=== PATIENT | male | born 1955 | race Caucasian/White ===

== ENCOUNTER 2016-11-09 13:07 | Observation (INO) ==
[2016-11-09] MEDS ORDERED: Aspirin 81 MG TAB.CHEW PO ONE (14:02)
[2016-11-09 14:17] LABS: Basophils % 0.5 %; Eosinophils # 0.3 K/mcL (0.0-0.6); Eosinophils % 5.3 %; Hematocrit 25.8 % (37.5-50.1); Hemoglobin 8.4 g/dL (12.9-16.9); Immature Granulocytes % 0.3 % (0-4); Lymphocytes # 1.1 K/mcL (0.6-4.6); Lymphocytes % 16.2 %; Mean Corpuscular HGB Conc 32.6 g/dL (31.6-35.5); Mean Corpuscular Hemoglobin 28.6 pg (28.0-33.3); Mean Corpuscular Volume 87.8 fL (83.0-100.0); Mean Platelet Volume 9.5 fL (9.4-12.4); Monocytes # 0.5 K/mcL (0.0-1.3); Monocytes % 7.9 %; Neutrophils # 4.5 K/mcL (1.6-8.9); Platelet Count 191 K/mcL (140-400); Red Blood Count 2.94 M/mcL (4.19-5.50); Segmented Neutrophils % 69.8 %
--- NOTE | 2016-11-09 14:17 | Emergency Department Note ---
Disposition Clinical Impression: Elevated troponin Abdominal pain Qualifiers: Abdominal location: generalized Qualified Code(s): R10.84 - Generalized abdominal pain Disposition: Admitted As Inpatient Condition: Good Forms: Work/School Release, ED Satisfaction Letter Time of Disposition: 15:24 Abdominal Pain HPI - General Chief Complaint: ED Abdominal Pain Stated Complaint: Chest Pain, ABD pain Time Seen by Provider: 11/09/16 13:32 Source: patient Nursing Notes Reviewed: Yes Vital Signs Reviewed: Yes - History of Present Illness HPI Narrative: Patient complaining of a diffuse abdominal pain for the past 2-3 days. States he is also had nausea and dry heaving. He is unable to get any vomit up. He also states that when he is ambulating into the hospital today he began having chest pain. He got short of breath with this. He denies diaphoresis. He does have a history of a CABG. Pain Scale: 4 - Related Data Home Medications Medication Instructions Recorded Confirmed Atorvastatin [Lipitor] 40 mg PO HS 03/16/15 09/30/16 Cholecalciferol (Vitamin D3) 50,000 unit PO SUWE 03/16/15 09/30/16 [Vitamin D3] Sertraline [Zoloft] 100 mg PO HS 03/16/15 09/30/16 TraMADol [Ultram] 50 mg PO BID PRN 12/26/15 09/30/16 Ondansetron HCl [Zofran] 4 mg PO TID PRN 02/14/16 09/30/16 Primidone [Mysoline] 75 mg PO DAILY 03/31/16 09/30/16 Insulin Glargine,Hum.rec.anlog 24 unit SQ HS 05/10/16 09/30/16 [Lantus Solostar] Magnesium Oxide [Mag-Ox] 400 mg PO BID 06/26/16 09/30/16 Melatonin 5 mg PO HS 06/26/16 09/30/16 Acetaminophen [Tylenol] 650 mg PO Q6HR PRN 09/05/16 09/30/16 CloNIDine HCl [Clonidine HCl] 0.2 mg PO BID 09/05/16 09/30/16 Fluticasone Propionate Nasal 1 spr NS DAILY PRN 09/05/16 09/30/16 [Flonase] Furosemide [Lasix] 40 mg PO DAILY 09/05/16 09/30/16 Metoprolol XL (24 HR) Succ [Toprol 12.5 mg PO DAILY 09/05/16 09/30/16 XL] Zolpidem [Ambien] 5 mg PO HS PRN 09/05/16 09/30/16 Previous Rx's Medication Instructions Recorded Dicyclomine [Bentyl] 10 mg PO TID #90 capsule 03/30/15 Aspirin 81 mg PO DAILY #30 tab.chew 02/20/16 Ascorbic Acid [Vitamin C] 500 mg PO DAILY #30 tablet 04/25/16 Ferrous Sulfate 325 mg PO DAILY #30 tablet 04/25/16 Hydralazine HCl 25 mg PO QID #0 06/28/16 Terazosin [Hytrin] 5 mg PO HS #60 capsule 06/28/16 Allergies Allergy/AdvReac Type Severity Reaction Status Date / Time metoclopramide [From Reglan] Allergy Intermediate See Verified 09/30/16 08:30 Comments All systems ED: reviewed and negative except as stated. Constitutional: Denies: fever, chills ENT ED: Denies: congestion Cardiovascular: Reports: chest pain (One episode on exertion while he was ambulating in the emergency department. Pressure in the center of his chest.). Denies: palpitations, dyspnea on exertion, syncope Respiratory: Reports: dyspnea (Associated with the chest pain while walking in the emergency department.). Denies: cough, wheezes Gastrointestinal: Reports: abdominal pain (Generalized past 2-3 days.), nausea ( For the past 2-3 days.). Denies: vomiting, diarrhea, hematemesis, melena, hematochezia Genitourinary: Denies: urgency, dysuria, frequency, hematuria Integumentary: Denies: rash, abrasion Neurological: Denies: headache, weakness Abdominal Pain PMH - Past Medical History Medical history: Reports: arthritis, CHF, coronary artery disease, DVT, diabetes , hyperlipidemia, hypertension, pulmonary embolus, renal disease, other Male Surgical History: Reports: other Psychiatric history: Reports: depression - Social History Smoking status: Never smoker Alcohol use: Reports: none Drug use: Reports: none Physical Exam - General Limitations: no limitations General appearance: alert, in no apparent distress - Head Head exam: atraumatic, normocephalic - Eye Eye exam: Present: normal appearance, PERRL, EOMI - ENT ENT exam: normal exam, normal oropharynx - Neck Neck exam: Present: normal inspection, full ROM, trachea midline. Absent: meningismus, lymphadenopathy - Chest Chest inspection: Present: normal inspection, symmetric chest wall rise - Respiratory Respiratory exam: Present: normal lung sounds bilaterally. Absent: respiratory distress - Cardiovascular Cardiovascular exam: Present: regular rate, normal rhythm, normal heart sounds - Abdominal Exam Abdominal exam: Present: soft, Non-Tender (Patient describes a generalized ache however has no pain on palpation.), Levi's sign, Rovsing's sign, tenderness at McBurney's Point. Absent: rigidity, organomegaly - Extremities Exam Extremities exam: Present: normal inspection, full ROM, normal capillary refill. Absent: tenderness, pedal edema - Back Exam Back exam: Present: normal inspection, full ROM. Absent: tenderness, CVA tenderness (R), CVA tenderness (L) - Neurological Exam Neurological exam: Present: alert, oriented X3 - Psychiatric Psychiatric exam: Present: normal affect, normal mood - Skin Skin exam: Present: warm, dry, intact, normal color. Absent: rash, cyanosis, diaphoresis Course Course Narrative: Now patient presenting to the emergency department with a 2-3 day history of diffuse abdominal pain and nausea. He states that he has had several episodes of dry heaving but has not been able to produce vomit. He denies any fevers. He does have a history of CABG and states that while he was ambulating into the hospital today he started having chest pain and shortness of breath. He denies any diaphoresis. He denies any shortness of breath or chest pain at this current time after resting in bed. He states he does have a cough that is chronic and has gone on for several years. He states there is no change in this. His lung sounds are clear and his heart sounds are normal. His abdomen is soft and nontender on palpation. He describes it as a generalized ache throughout his whole abdomen. He refuses nausea or pain medication at this time. We will give him an aspirin as he takes this at night and has not taken his daily dose today. We will get cardiac workup as well as a chest x-ray. - Reevaluation(s) Reevaluation #1: Patient's troponin is increased. In the setting of patient having chest pain and an elevated troponin I am concerned for a new cardiac event. He does have a history of a CABG. His heart score is in the high risk category. We will admit patient to the hospital. Patient asleep in bed on my entrance to the room. He is easily aroused. Patient is hypertensive. Patient's states that he generally takes his hydralazine as well as the Bentyl at 3:00. I will order this. I discussed admission with the family. They expressed understanding and agreement. Patient was also agreeable. Time: 15:00 - Consultations Consultation #1: Dr Marin accepted Pt in stable condition. Time: 15:37 Vital Signs Temperature 98.2 F 11/09/16 13:20 Pulse Rate 95 11/09/16 13:20 Respiratory Rate 16 11/09/16 13:20 Blood Pressure 176/82 11/09/16 13:20 O2 Sat by Pulse Oximetry 97 11/09/16 13:20 Temperature 98.2 F 11/09/16 13:20 Pulse Rate 59 11/09/16 15:07 Respiratory Rate 18 11/09/16 15:07 Blood Pressure 205/91 11/09/16 15:07 O2 Sat by Pulse Oximetry 97 11/09/16 15:07 Oxygen Delivery Oxygen Delivery Room Air Abdominal Pain - Medical Records Medical records reviewed: Yes I reviewed the patient's medical records. - Lab Data Lab results reviewed: Yes I reviewed the patient's lab results. Result diagrams: 11/09/16 13:40 11/09/16 13:40 Lab Results 11/09/16 11/09/16 11/09/16 Range/Units 13:40 13:40 13:40 WBC 6.5 (4.3-11.1) K/mcL RBC 2.94 L (4.19-5.50) M/mcL Hgb 8.4 L (12.9-16.9) g/dL Hct 25.8 L (37.5-50.1) % MCV 87.8 (83.0-100.0) fL MCH 28.6 (28.0-33.3) pg MCHC 32.6 (31.6-35.5) g/dL RDW 13.0 (11.5-14.5) % Plt Count 191 (140-400) K/mcL MPV 9.5 (9.4-12.4) fL Immature Gran % 0.3 (0-4) % Seg Neutrophils % 69.8 % Lymphocytes % 16.2 % Monocytes % 7.9 % Eosinophils % 5.3 % Basophils % 0.5 % Neutrophils # 4.5 (1.6-8.9) K/mcL Lymphocytes # 1.1 (0.6-4.6) K/mcL Monocytes # 0.5 (0.0-1.3) K/mcL Eosinophils # 0.3 (0.0-0.6) K/mcL Basophils # 0.0 (0.0-0.2) K/mcL PT 12.3 H (9.4-12.1) Seconds INR 1.1 APTT 30.2 (26.0-36.0) Seconds Sodium (136-145) mEq/L Potassium (3.5-4.5) mEq/L Chloride (98-109) mEq/L Carbon Dioxide (19-29) mEq/L BUN (8-26) mg/dL Creatinine (0.72-1.25) mg/dL Est GFR ( Amer) (> 60) Est GFR (Non-Af Amer) (> 60) BUN/Creatinine Ratio (6-26) Glucose (70-99) mg/dL Calculated Osmolality (280-300) Calcium (8.6-10.8) mg/dL Total Bilirubin 0.3 (0.2-1.2) mg/dL Direct Bilirubin 0.1 (0.0-0.5) mg/dL Indirect Bilirubin 0.2 (0.0-1.2) mg/dL AST 20 (5-34) Units/L ALT 15 (0-55) Units/L Alkaline Phosphatase 59 (38-126) Units/L Troponin I (0-0.03) ng/mL Serum Total Protein 6.6 (6.0-8.3) g/dL Albumin 3.2 L (3.5-5.0) g/dL Globulin 3.4 (2.4-3.5) g/dL Albumin/Globulin Ratio 0.9 L (1.1-2.2) Amylase 65 (25-125) Units/L Lipase 32 (8-78) Units/L 11/09/16 11/09/16 Range/Units 13:40 13:40 WBC (4.3-11.1) K/mcL RBC (4.19-5.50) M/mcL Hgb (12.9-16.9) g/dL Hct (37.5-50.1) % MCV (83.0-100.0) fL MCH (28.0-33.3) pg MCHC (31.6-35.5) g/dL RDW (11.5-14.5) % Plt Count (140-400) K/mcL MPV (9.4-12.4) fL Immature Gran % (0-4) % Seg Neutrophils % % Lymphocytes % % Monocytes % % Eosinophils % % Basophils % % Neutrophils # (1.6-8.9) K/mcL Lymphocytes # (0.6-4.6) K/mcL Monocytes # (0.0-1.3) K/mcL Eosinophils # (0.0-0.6) K/mcL Basophils # (0.0-0.2) K/mcL PT (9.4-12.1) Seconds INR APTT (26.0-36.0) Seconds Sodium 139 (136-145) mEq/L Potassium 4.6 H (3.5-4.5) mEq/L Chloride 109 (98-109) mEq/L Carbon Dioxide 20 (19-29) mEq/L BUN 85 H (8-26) mg/dL Creatinine 3.49 H (0.72-1.25) mg/dL Est GFR ( Amer) 22 L (> 60) Est GFR (Non-Af Amer) 18 L (> 60) BUN/Creatinine Ratio 24 (6-26) Glucose 212 H (70-99) mg/dL Calculated Osmolality 320 H (280-300) Calcium 8.8 (8.6-10.8) mg/dL Total Bilirubin (0.2-1.2) mg/dL Direct Bilirubin (0.0-0.5) mg/dL Indirect Bilirubin (0.0-1.2) mg/dL AST (5-34) Units/L ALT (0-55) Units/L Alkaline Phosphatase (38-126) Units/L Troponin I 0.08 H* (0-0.03) ng/mL Serum Total Protein (6.0-8.3) g/dL Albumin (3.5-5.0) g/dL Globulin (2.4-3.5) g/dL Albumin/Globulin Ratio (1.1-2.2) Amylase (25-125) Units/L Lipase (8-78) Units/L - Radiology Data Radiology results reviewed: Yes I reviewed the patient's radiology results. Chest X-Ray 11/09/16 14:03 IMPRESSION: Small left pleural effusion with adjacent atelectasis, decreased in size since 06/26/2016 D/ / Eusebia Pineda MD / Eusebia Pineda MD Interpreting Provider: Eusebia Pineda MD - EKG Data EKG attestation: Yes I reviewed and interpreted this EKG. EKG results narrative: Normal sinus rhythm at a rate of 65. AR interval is 165. QRS duration is 103. QT is 414. QTC is 426. No ST elevation or depression noted. No significant changes from previous EKG dated 06/26/2016. Heart Score - Score History: Slightly Suspicious EKG: Normal Age: 45-65 Risk Factors: Equal/Greater than 3 risk factor or history of atherosclerotic disease Troponin: 1-3x normal limit HEART Score Total: 4
[2016-11-09 14:21] LABS: INR 1.1; Prothrombin Time 12.3 Seconds (9.4-12.1)
[2016-11-09 14:24] LABS: Activated Partial Thrombo Time 30.2 Seconds (26.0-36.0)
--- NOTE | 2016-11-09 14:24 | Emergency Department Note ---
START Narrative - START START: I examined this patient and my medical decision-making was reviewed with the LIBRARY ASSOCIATE/PA/Advanced Practice Nurse/Resident Physician. I agree with the documented findings, disposition and treatment plan as described except to the extent set forth below. ED attending note: Patient seen with emergency medicine resident Dr. Chester. Please see a copy of his note for details of the H&P, evaluation, management and disposition of this patient. We independently had [id number] contact with the patient Briefly: A 61-year-old male history of CAD chest discomfort on exertion abdomen surgically benign. Elbow stable vital signs. Heart score is 3. Patient at baseline troponin and then a 3 hour troponin after that chest x-ray and other screening labs. Disposition pending
[2016-11-09 14:25] LABS: Calcium 8.8 mg/dL (8.6-10.8); Potassium 4.6 mEq/L (3.5-4.5)
[2016-11-09 14:28] LABS: Albumin 3.2 g/dL (3.5-5.0); Albumin/Globulin Ratio 0.9 (1.1-2.2); Bilirubin,Direct 0.1 mg/dL (0.0-0.5); Bilirubin,Indirect 0.2 mg/dL (0.0-1.2); Bilirubin,Total 0.3 mg/dL (0.2-1.2); Globulin 3.4 g/dL (2.4-3.5); Total Protein 6.6 g/dL (6.0-8.3)
[2016-11-09] MEDS: hydrALAZINE 25 MG TABLET PO STA (15:39)
[2016-11-09] MEDS ORDERED: *HR* Metoprolol 5 MG/5 ML VIAL IVP ONE (17:32)
[2016-11-09] MEDS ORDERED: Naloxone 0.4 MG/ML INJ IVP PRN (18:05)
[2016-11-09] MEDS ORDERED: traMADol 50 MG TABLET PO PRN (18:08)
[2016-11-09] MEDS ORDERED: Acetaminophen 325 MG TABLET PO PRN (18:08)
[2016-11-09] MEDS ORDERED: *HR* Dextrose 50 % in Water (Syg) 50 ML SYRINGE IVP PRN (18:14)
[2016-11-09] MEDS ORDERED: Dextrose Gel 15 GM PO PRN ×2 (18:14)
[2016-11-09] MEDS ORDERED: D5% in Water 1,000 ML IVC PRN (18:14)
--- NOTE | 2016-11-09 18:24 | Internal Med History&Physical ---
Date of Encounter: 11/09/16 Time of Encounter: 18:19 Assessment and Plan (1) Abdominal pain Current visit: Yes Status: Acute Patient reports generalized abdominal pain, poor appetite, nausea, and dry heaving. He states he is able to tolerate fluids, and he is having regular bowel movements. Abdomen is soft, mildly tender. Patient reports history of IBS on Bentyl Continue home dose of Bentyl PRN zofran for nausea clear liquid diet. Qualifiers: Abdominal location: generalized Qualified Code(s): R10.84 - Generalized abdominal pain (2) Anemia Current visit: No Status: Acute Patient's hgb 8.4 down from previous of 10.0. He has anemia of chronic kidney disease and kidney function has been worsening. He takes an iron supplement daily. He denies any episodes of bleeding, black or bloody stools. Will check fecal occult blood Transfuse 1 unit of blood followed by 40mg of Lasix IVP. Qualifiers: Anemia type: other cause Other causes of anemia: chronic disease, kidney Qualified Code(s): N18.9 - Chronic kidney disease, unspecified; D63.1 - Anemia in chronic kidney disease (3) Accelerated hypertension Current visit: No Status: Acute Patient's blood pressure has been elevated since arrival. Home dose of hydralazine given in the ED. Continue home doses of clonidine, lasix, hydralazine. Start Nifedipine XL 60mg daily Hydralazine 10mg IVP Q6hr PRN for SBP > 180 or DBP > 110. (4) Elevated troponin Current visit: Yes Status: Acute Patient's troponin 0.08. He reported some mild chest pain earlier in the day that did not last long. He is chest pain free now. EKG shows normal sinus rhythm with no ST elevations or depressions. Patient had CABG in March for coronary artery disease. Patient with CKD 4, which may account for troponin elevation. As patient is not having any chest pain or shortness of breath, will follow troponins. Trend troponins continuous director of cardiac rehabilitation. (5) CAD (coronary artery disease) Current visit: No Status: Chronic 2-vessel CABG in March 2016. His post operative course was complicated by readmissions for pleural effusions, diastolic CHF exacerbation and worsening kidney function. Continue aspirin 81mg daily. Qualifiers: Coronary Disease-Associated Artery/Lesion type: [place] artery [place] vs. transplanted heart: [place] heart Associated angina: without angina Qualified Code(s): I25.10 - Atherosclerotic heart disease of [place] coronary artery without angina pectoris (6) CKD (chronic kidney disease) stage 4, GFR 15-29 ml/min Current visit: No Status: Chronic BUN/Cr of 85/3.49 consistent with recent baseline. Patient follows with Dr. Velasquez of Nephrology and recently had a RUE AVF placed in expectation of eventual dialysis. Potassium is 4.6 today. Avoid NSAIDS and nephrotoxins Chemistry in the morning. (7) DM type 2 (diabetes mellitus, type 2) Current visit: No Status: Chronic Fairly controlled as evidenced by Hgb A1c of 7.3% on 09/23/16. Diabetic clear liquid diet Patient usually takes 24u of lantus HS for basal dosing. As patient has a poor appetite and has a diet of clear liquids, will only give 14u of Levemir HS. Check blood sugars ACHS moderate dose sliding scale correction hypoglycemic protocol. 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 Consult to wound care. Qualifiers: Non-pressure ulcer stage: unspecified non-pressure ulcer stage Qualified Code(s): L97.419 - Non-pressure chronic ulcer of right heel and midfoot with unspecified severity (9) DVT prophylaxis Current visit: No Status: Acute anti-embolic stockings Heparin 5000u SQ TID Internal Medicine - H&P: HPI Chief complaint: abdominal pain, chest pain Admitted From: Emergency Dept Plans for Post Hospital Care: Home History of present illness: Mr. French is a 61 year old male with hypertension, hyperlipidemia, type 2 diabetes, chronic kidney disease stage IV, history of DVT and PE, coronary artery disease status post CABG in March 2016, congestive heart failure, and essential tremor, presented to the emergency department today with complaints of abdominal pain, nausea, and chest pain. Patient reports he has not slept in 2-3 days, he has had abdominal pain he describes as constant, severe pain accompanied by nausea, and dry heaving. He reports a poor appetite over the last several days, but is able to keep down fluids. He has had regular bowel movements with last one today. He reports headaches, but denies any lightheadedness he reports some mild chest pain earlier today that is now resolved. Denies any shortness of breath , palpitations. As a chronic cough nonproductive. He reports numbness and tingling in his hands and feet which is chronic as well. Patient reports he removed a tick from the side of his leg earlier today. Evaluation in the emergency department included a chest x-ray which showed small left pleural effusion decreased in size from previous exam, EKG showed normal sinus rhythm with no ST elevations or depressions. Troponin was elevated to 0.08, however this is in the setting of chronic kidney disease, and patient's troponin has been chronically elevated recently. Hemoglobin was 8.4 down from his previous of 10.0 white blood cell count was normal at 6.5. BUN and creatinine were consistent with his baseline chronic kidney disease. Patient was hypertensive with blood pressure in the 170-200/80-90s. On exam, patient is alert and oriented in no acute distress. Heart has regular rate and rhythm, lungs are clear bilaterally to auscultation. Bilateral lower extremities have +1 edema. Past Med Surg Social Fam HX - Past Medical History Medical history: arthritis, CHF, coronary artery disease, DVT, diabetes, hyperlipidemia, hypertension, pulmonary embolus, renal disease, other Psychiatric history: depression - Past Surgical History Surgical History: cataract, coronary bypass (CABG), vascular surgery (AVF placement), other - Social History Smoking Status: Never smoker Smokeless Tobacco Status: No Alcohol use: none Drug use: none - Family History Father Family Member Ethnicity: Non- Living Status: Still Living Hx Family Cardiac Disorders: Yes Hx Family Endocrine Disorder: Yes Mother Adopted: No Family Member Ethnicity: Non- Living Status: Still Living Hx Family Cardiac Disorders: Yes (dad, mother) Hx Family Respiratory Disorders: No Hx Family Cancer: Yes (aunt,uncle) Hx Family GI Disorders: Yes Hx Family Endocrine Disorder: No Hx Family Neuromuscular Disorders: No Hx Family Neurologic Disorders: No Hx Family HEENT Disorders: No Hx Family Autoimmune Disorders: No Internal Medicine - H&P: Meds Atorvastatin [Lipitor] 40 mg PO HS 03/16/15 [History] Cholecalciferol (Vitamin D3) [Vitamin D3] 50,000 unit PO SUWE 03/16/15 [History] Sertraline [Zoloft] 100 mg PO HS 03/16/15 [History] Dicyclomine [Bentyl] 10 mg PO TID #90 capsule 03/30/15 [Rx] TraMADol [Ultram] 50 mg PO BID PRN 12/26/15 [History] Primidone [Mysoline] 75 mg PO DAILY 03/31/16 [History] Ascorbic Acid [Vitamin C] 500 mg PO DAILY #30 tablet 04/25/16 [Rx] Insulin Glargine,Hum.rec.anlog [Lantus Solostar] 24 unit SQ HS 05/10/16 [History ] Magnesium Oxide [Mag-Ox] 400 mg PO BID 06/26/16 [History] Melatonin 5 mg PO HS 06/26/16 [History] Hydralazine HCl 25 mg PO QID #0 06/28/16 [Rx] Terazosin [Hytrin] 5 mg PO HS #60 capsule 06/28/16 [Rx] Acetaminophen [Tylenol] 650 mg PO Q6HR PRN 09/05/16 [History] CloNIDine HCl [Clonidine HCl] 0.2 mg PO DAILY 09/05/16 [History] Fluticasone Propionate Nasal [Flonase] 1 spr NS DAILY PRN 09/05/16 [History] Furosemide [Lasix] 40 mg PO DAILY 09/05/16 [History] Zolpidem [Ambien] 5 mg PO HS PRN 09/05/16 [History] Aspirin 81 mg PO HS 11/09/16 [History] Ferrous Sulfate 650 mg PO DAILY 11/09/16 [History] Promethazine HCl 12.5 mg PO TID PRN 11/09/16 [History] Allergies metoclopramide [From Reglan] Allergy (Intermediate, Verified 09/30/16 08:30) See Comments TREMORS All Systems PM: A 10-system review of systems was performed and is negative for pertinent findings except as documented above in the HPI. - Constitutional Constitutional: chills, malaise, no fever(s), no night sweats - EENT Eyes: no change in vision, no discharge, no pain, no photophobia Ears: no ear discharge, no ear pain, no tinnitus Nose, mouth and throat: no dysphagia, no nasal discharge, no neck pain, no sore throat - Cardiovascular Cardiovascular ROS IM: chest pain, no diaphoresis, no dyspnea, no lightheadedness, no palpitations, no syncope - Respiratory Respiratory: cough (chronic), no dyspnea, no wheezing, no excessive phlegm production - Gastrointestinal Gastrointestinal: abdominal pain, nausea, vomiting, no diarrhea, no hematemesis , no hematochezia, no melena - Musculoskeletal Musculoskeletal ROS IM: numbness (bilateral hands and feet, chronic), tingling - Integumentary Integumentary IM: no rash, no unusual bruising - Neurological Neurological ROS: tremor(s) (chronic), no confusion, no convulsions, no focal weakness, no numbness, no tingling - Hematologic/Lymphatic Hematologic/Lymphatic: no easy bruising - Constitutional Vitals: Temp Pulse Resp BP Pulse Ox 97.7 F 97 16 197/82 99 11/09/16 16:12 11/09/16 16:12 11/09/16 16:12 11/09/16 16:33 11/09/16 16:12 General appearance: Present: A&O X 3, pleasant, no acute distress - Head Head exam: Present: atraumatic, normocephalic - Eye Eye exam: Present: PERRL, conjuntiva pink, sclera anicteric Pupils: Present: PERRL - Neck Neck exam general surgery: Present: supple, trachea midline. Absent: lymphadenopathy - Respiratory Respiratory exam: Present: CTAB. Absent: accessory muscle use, rales, rhonchi, wheezes - Cardiovascular Cardiovascular exam: Present: RRR, +S1, +S2. Absent: diastolic murmur, gallop, rubs, systolic murmur - GI/Abdominal GI/Abdominal exam: Present: normal bowel sounds, soft, no peritoneal signs. Absent: distended, tenderness - Extremities Exam Extremities exam: Present: pedal edema (BLE +1), warm, radial pulses palpable and symetrical. Absent: calf tenderness, cyanotic - Neurological Exam Neurological exam: Present: CN II-XII intact, oriented X3, no focal deficits. Absent: facial droop, speech deficit - Skin Skin exam: Present: dry Additional comments: right heel ulcer Internal Med - H&P Results - Labs CBC & Chem 7: 11/09/16 13:40 11/09/16 13:40
--- NOTE | 2016-11-09 19:55 | Event Note ---
Date of Encounter: 11/09/16 Time of Encounter: 19:52 patient seen and examined with nurse practitioner. Agree with assessment and plan. 1 unit of blood becuse of chest pain in CABG patient and Hb 8.4. Check stool for occult blood. Add nifedipine 60 mg daily for better control of BP. May consider discontinuing clonidine because of uncontrolled HTN this admission as well as prior.
[2016-11-09] MEDS: *HR* Heparin 5,000 UNIT/ML VIAL SQ SCH (20:42)
[2016-11-09] MEDS: Magnesium Oxide 400 MG TABLET PO SCH (20:42)
[2016-11-09] MEDS: hydrALAZINE 25 MG TABLET PO SCH (20:42)
[2016-11-09] MEDS: Insulin DETEMIR 100 UNIT/ML X5UNITS SQ SCH (20:42)
[2016-11-09] MEDS: Aspirin 81 MG TAB.CHEW PO SCH (20:42)
[2016-11-09] MEDS: NIFEdipine XL (24 HR) 60 MG TAB.ER.24 PO SCH (20:42)
[2016-11-09] MEDS: Insulin LISPRO 300 UNITS/3 ML VIAL SQ SCH (20:49)
[2016-11-09] MEDS ORDERED: Furosemide 40 MG/4 ML VIAL IVP ONE (23:00)
[2016-11-10] MEDS: traMADol 50 MG TABLET PO PRN (01:13)
[2016-11-10 02:50] LABS: Basophils % 0.6 %; Eosinophils # 0.6 K/mcL (0.0-0.6); Eosinophils % 8.7 %; Hematocrit 27.1 % (37.5-50.1); Hemoglobin 8.9 g/dL (12.9-16.9); Immature Granulocytes % 0.3 % (0-4); Lymphocytes # 1.8 K/mcL (0.6-4.6); Lymphocytes % 27.1 %; Mean Corpuscular HGB Conc 32.8 g/dL (31.6-35.5); Mean Corpuscular Hemoglobin 28.5 pg (28.0-33.3); Mean Corpuscular Volume 86.9 fL (83.0-100.0); Mean Platelet Volume 9.5 fL (9.4-12.4); Monocytes # 0.6 K/mcL (0.0-1.3); Monocytes % 9.2 %; Neutrophils # 3.6 K/mcL (1.6-8.9); Platelet Count 183 K/mcL (140-400); Red Blood Count 3.12 M/mcL (4.19-5.50); Red Cell Distribution Width 13.2 % (11.5-14.5); Segmented Neutrophils % 54.1 %
[2016-11-10 03:01] LABS: Calcium 8.8 mg/dL (8.6-10.8); Potassium 3.8 mEq/L (3.5-4.5)
[2016-11-10] MEDS: *HR* Heparin 5,000 UNIT/ML VIAL SQ SCH ×3 (05:28→21:50)
[2016-11-10] MEDS: Insulin LISPRO 300 UNITS/3 ML VIAL SQ SCH ×4 (07:53→21:49)
[2016-11-10] MEDS: Furosemide 40 MG TABLET PO SCH (09:24)
[2016-11-10] MEDS: cloNIDine HCl 0.1 MG TABLET PO SCH (09:24)
[2016-11-10] MEDS: Magnesium Oxide 400 MG TABLET PO SCH ×2 (09:24→21:48)
[2016-11-10] MEDS: Primidone 50 MG TABLET PO SCH (09:25)
[2016-11-10] MEDS: Ascorbic Acid 500 MG TABLET PO SCH (09:25)
[2016-11-10] MEDS: hydrALAZINE 25 MG TABLET PO SCH ×4 (09:25→21:48)
[2016-11-10] MEDS: NIFEdipine XL (24 HR) 60 MG TAB.ER.24 PO SCH (09:25)
--- NOTE | 2016-11-10 13:38 | Internal Med Progress Note ---
Date of Encounter: 11/10/16 Time of Encounter: 13:36 - Assessment and plan (1) Elevated troponin Current Visit: Yes Status: Acute Assessment and plan: Patient had only one episode of chest pain in the emergency room, which may be noncardiac. Troponins noted to be around 0.08, currently trending down to 0.06. Review of previous medical records and labs show that patient has had a chronic troponin leak, likely due to underlying CKD and uncontrolled hypertension. He is also noted to have any anemia which could contribute to demand ischemia. Continue aspirin, statin. Patient is not noted to be on beta diogo due to unknown reasons. (2) Anemia Current Visit: Yes Status: Chronic Assessment and plan: Patient is noted to have a 2-3 g drop in hemoglobin over the last 4 months and he is noted to have positive fecal occult blood test. He received 1 unit PRBC transfusion due to complaints of fatigue and generalized weakness with slight troponin leak but hemoglobin improved to less than 1 g. We will consult GI for possible colonoscopy, continue to monitor hemoglobin. Qualifiers: Anemia type: iron deficiency Iron deficiency anemia type: unspecified iron deficiency Qualified Code(s): D50.9 - Iron deficiency anemia, unspecified (3) Chest pain Current Visit: Yes Status: Ruled-out Assessment and plan: Likely musculoskeletal. Qualifiers: Chest pain type: other chest pain Qualified Code(s): R07.89 - Other chest pain; R07.8 - Other chest pain (4) Hypertension Current Visit: Yes Status: Chronic Assessment and plan: Patient is noted to have uncontrolled hypertension as outpatient. 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 Blood pressure is currently noted to be improving, continue home medications. Low-sodium diet. Qualifiers: Hypertension type: essential hypertension Qualified Code(s): I10 - Essential (primary) hypertension (5) Hypercholesteremia Current Visit: Yes Status: Chronic (6) History of depression Current Visit: Yes Status: Chronic (7) CKD (chronic kidney disease) stage 4, GFR 15-29 ml/min Current Visit: Yes Status: Chronic Assessment and plan: Serum creatinine noted to be at baseline. Continue to monitor closely and avoid nephrotoxic agents. Patient follows with nephrology as an outpatient. (8) Coronary artery disease Current Visit: Yes Status: Chronic Qualifiers: Coronary Disease-Associated Artery/Lesion type: bypass graft [place] vs. transplanted heart: [place] heart Associated angina: without angina Qualified Code(s): I25.810 - Atherosclerosis of coronary artery bypass graft(s) without angina pectoris (9) DM type 2 (diabetes mellitus, type 2) Current Visit: Yes Status: Chronic Assessment and plan: Accu-Chek blood glucose monitoring with sliding scale insulin. Diabetic diet. 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 termite technician insulin use: with snf use Chronic kidney disease stage: stage 4 (severe) Qualified Code(s): E11.22 - Type 2 diabetes mellitus with diabetic chronic kidney disease; N18.4 - Chronic kidney disease, stage 4 (severe); Z79.4 - snf (current) use of insulin - Subjective Interval history: Feels better; improved nausea, abdominal and chest pain; no dizziness, weakness; - Constitutional Vitals: Temp Pulse Resp BP Pulse Ox 97.5 F L 54 16 138/66 91 11/10/16 11:37 11/10/16 11:37 11/10/16 11:37 11/10/16 11:37 11/10/16 11:37 General appearance: Present: A&O X 3, answers questions appropriately - Respiratory Respiratory exam: Present: CTAB. Absent: accessory muscle use, rales, rhonchi, wheezes - Cardiovascular Cardiovascular exam: Present: RRR, +S1, +S2. Absent: diastolic murmur, gallop, rubs, systolic murmur - GI/Abdominal GI/Abdominal exam: Present: normal bowel sounds, soft, no peritoneal signs. Absent: distended, tenderness - Extremities Exam Extremities exam: Present: full ROM, warm, radial pulses palpable and symetrical. Absent: calf tenderness, cyanotic, pedal edema - Neurological Exam Neurological exam: Present: CN II-XII intact, oriented X3, no focal deficits. Absent: pronater drift, facial droop, speech deficit Internal Medicine: Result - Labs CBC & Chem 7: 11/10/16 02:25 11/10/16 02:25 Labs: Short CBC 11/10/16 Range/Units 02:25 WBC 6.6 (4.3-11.1) K/mcL Hgb 8.9 L (12.9-16.9) g/dL Hct 27.1 L (37.5-50.1) % Plt Count 183 (140-400) K/mcL Neutrophils # 3.6 (1.6-8.9) K/mcL BMP 11/10/16 02:25 Sodium 140 Potassium 3.8 Chloride 109 Carbon Dioxide 22 BUN 84 H Creatinine 3.42 H Glucose 109 H Calcium 8.8 Cardiac Enzymes 11/09/16 11/10/16 11/10/16 Range/Units 19:52 02:25 12:29 Troponin I 0.09 H* 0.08 H* 0.06 H* (0-0.03) ng/mL - ABG Interpretation ABG results: PT/INR, D-dimer PT 12.3 Seconds (9.4-12.1) H 11/09/16 13:40 Consult Discharge Plan - Plan Referrals: Ruel Veloz MD [Primary Care Provider] -
--- NOTE | 2016-11-10 19:25 | Electrocardiograph Report ---
[place] [id number] Test Date: 2016-11-09 Pat Name: Elmo French Department: 104 Room: 3B Gender: M Claim Manager: MSC : [id number] Requested By: Lizy Loyd Order Number: [id number] Reading MD: Pablo Alarcon MD Measurements Intervals [place] Rate: 65 P: 47 NC: 165 QRS: 37 QRSD: 103 T: 91 QT: 414 QTc: 426 Interpretive Statements SINUS RHYTHM Electronically Signed On 11-10-2016 19:24:02 EDT by Pablo Alarcon MD
[2016-11-10] MEDS: Aspirin 81 MG TAB.CHEW PO SCH (21:48)
[2016-11-10] MEDS: Insulin DETEMIR 100 UNIT/ML X5UNITS SQ SCH (21:49)
[2016-11-11 05:35] LABS: Basophils % 0.6 %; Eosinophils # 0.5 K/mcL (0.0-0.6); Eosinophils % 8.4 %; Hematocrit 26.9 % (37.5-50.1); Hemoglobin 8.7 g/dL (12.9-16.9); Immature Granulocytes % 0.3 % (0-4); Lymphocytes # 1.5 K/mcL (0.6-4.6); Mean Corpuscular HGB Conc 32.3 g/dL (31.6-35.5); Mean Corpuscular Hemoglobin 28.1 pg (28.0-33.3); Mean Corpuscular Volume 86.8 fL (83.0-100.0); Mean Platelet Volume 9.1 fL (9.4-12.4); Monocytes # 0.6 K/mcL (0.0-1.3); Neutrophils # 3.6 K/mcL (1.6-8.9); Platelet Count 194 K/mcL (140-400); Red Cell Distribution Width 13.4 % (11.5-14.5); Segmented Neutrophils % 57.7 %
[2016-11-11] MEDS: *HR* Heparin 5,000 UNIT/ML VIAL SQ SCH ×3 (05:39→21:43)
[2016-11-11 05:55] LABS: Albumin 2.9 g/dL (3.5-5.0); Calcium 8.6 mg/dL (8.6-10.8); Phosphorous 4.6 mg/dL (2.3-4.7); Potassium 4.4 mEq/L (3.5-4.5)
[2016-11-11] MEDS: Insulin LISPRO 300 UNITS/3 ML VIAL SQ SCH ×4 (08:53→21:21)
[2016-11-11] MEDS: Ondansetron 4 MG/2 ML VIAL IVP PRN (09:34)
[2016-11-11] MEDS: Magnesium Oxide 400 MG TABLET PO SCH ×2 (09:37→21:44)
[2016-11-11] MEDS: NIFEdipine XL (24 HR) 60 MG TAB.ER.24 PO SCH (09:37)
[2016-11-11] MEDS: Primidone 50 MG TABLET PO SCH (09:37)
[2016-11-11] MEDS: Furosemide 40 MG TABLET PO SCH (09:37)
[2016-11-11] MEDS: traMADol 50 MG TABLET PO PRN (09:38)
[2016-11-11] MEDS: Ascorbic Acid 500 MG TABLET PO SCH (09:38)
[2016-11-11] MEDS: cloNIDine HCl 0.1 MG TABLET PO SCH (09:38)
[2016-11-11] MEDS: hydrALAZINE 25 MG TABLET PO SCH ×4 (09:38→21:46)
--- NOTE | 2016-11-11 12:36 | Gastroenterology Consult Note ---
<VeeAntonio edwards Mona - Last Filed: 11/11/16 12:34> Date of Encounter: 11/11/16 Time of Encounter: 11:00 - Assessment and plan (1) Anemia Current Visit: Yes Status: Chronic Assessment and plan: Hgb 8.7, continue to monitor CBC and transfuse PRBC as needed. Plan for EGD and colonoscopy tomorrow. Clear liquid diet today, no red or purple. NPO at midnight. If unable tolerate NuLytely please use MiraLAX prep. If not clear by 6 AM, give 2 tap water enemas. Qualifiers: Anemia type: iron deficiency Iron deficiency anemia type: unspecified iron deficiency Qualified Code(s): D50.9 - Iron deficiency anemia, unspecified (2) CKD (chronic kidney disease) stage 4, GFR 15-29 ml/min Current Visit: No Status: Chronic (3) Elevated troponin Current Visit: Yes Status: Acute Assessment and plan: Chronic. Management per primary team. - Time Spent With Patient Total time spent is greater than 50% in coordination of care (as documented) at patient's floor/unit and/or counseling patient: GI History of Present Illness - Data of Consult Patient: new to practice Consult date: 11/11/16 Requesting Physician: Joseph Sylvester MD - Consult Narrative Reason for consult: Anemia, FOBT + History of present illness: Mr. French is a 61 year old male with PMHx of CHF, CAD s/p CABG March 2016, DVT, DM, HLD, HTN, PE, CKD stage IV who presented to the ED with abdominal pain , nausea, and chest pain. He describes the abdominal pain as constant and severe with associated nausea. He is having daily BM, and denies melena or hematochezia. He denies fever, chills, SOB, palpitations, hematemesis, or diarrhea. Hgb on admission was 8.4 and has received 1 unit PRBC. Hgb today is 8.7. He reports his tremors are due to Reglan usage. Procedures: None NSAIDs: ASA Anticoagulation: None Past Med Surg Social Fam HX - Past Medical History Medical history: arthritis, CHF, coronary artery disease, DVT, diabetes, hyperlipidemia, hypertension, pulmonary embolus, renal disease, other Psychiatric history: depression - Past Surgical History Surgical History: cataract, coronary bypass (CABG), vascular surgery (AVF placement), other - Social History Smoking Status: Never smoker Smokeless Tobacco Status: No Alcohol use: none Drug use: none - Family History Father Family Member Ethnicity: Non- Living Status: Still Living Hx Family Cardiac Disorders: Yes Hx Family Endocrine Disorder: Yes Mother Adopted: No Family Member Ethnicity: Non- Living Status: Still Living Hx Family Cardiac Disorders: Yes (dad, mother) Hx Family Respiratory Disorders: No Hx Family Cancer: Yes (aunt,uncle) Hx Family GI Disorders: Yes Hx Family Endocrine Disorder: No Hx Family Neuromuscular Disorders: No Hx Family Neurologic Disorders: No Hx Family HEENT Disorders: No Hx Family Autoimmune Disorders: No - Gastrointestinal Gastrointestinal: Present: as per HPI - Constitutional Constitutional: as per HPI - EENT Eyes: as per HPI Ears: Present: as per HPI Nose, mouth and throat: Present: as per HPI - Cardiovascular Cardiovascular ROS: Present: as per HPI - Respiratory Respiratory IM: Present: as per HPI - Genitourinary Genitourinary: Absent: change in color, Urinary frequency - Neurological ROS Neurological GI: Present: as per HPI - Hematologic/Lymphatic Hematologic/Lymphatic pediatric: Present: as per HPI - Musculoskeletal Musculoskeletal ROS GI: Present: as per HPI - Integumentary Integumentary GI: Present: as per HPI - Psychiatric ROS Psychiatric GI: Present: as per HPI - Endocrine Endocrine IM: Present: as per HPI - Constitutional Vitals: Temp Pulse Resp BP Pulse Ox 97.7 F 60 17 173/73 96 11/11/16 11:31 11/11/16 11:31 11/11/16 11:31 11/11/16 11:31 11/11/16 11:31 General appearance: Present: cooperative, A&O X 3, no acute distress, answers questions appropriately - Head Head exam: Present: atraumatic, normocephalic - Eye Eye exam: Present: normal appearance, sclera anicteric - ENT ENT exam: Present: mucous membranes moist - Neck Neck exam general surgery: Present: normal inspection, trachea midline - Respiratory Respiratory exam: Present: CTAB. Absent: rales - Cardiovascular Cardiovascular exam: Present: RRR, +S1, +S2 - GI/Abdominal GI/Abdominal exam: Present: soft, no peritoneal signs. Absent: distended, firm , guarding, tenderness - Rectal Rectal exam: Present: deferred - Extremities Exam Extremities exam: Present: warm - Neurological Exam Neurological exam: Present: no focal deficits Additional comments: Tremors - Psychiatric Psychiatric exam: Present: normal affect, normal mood - Skin Skin exam: Present: dry, intact, normal color, warm Results - Labs CBC & Chem 7: 11/11/16 05:12 11/11/16 05:12 Labs: Last Result Calcium 8.6 mg/dL (8.6-10.8) 11/11/16 05:12 Troponin I 0.05 ng/mL (0-0.03) H* 11/10/16 18:11 Stool Occult Blood Positive (Negative) A 11/09/16 21:14 Entire Visit Hgb 8.7 g/dL (12.9-16.9) L 11/11/16 05:12 Hct 26.9 % (37.5-50.1) L 11/11/16 05:12 PT 12.3 Seconds (9.4-12.1) H 11/09/16 13:40 Total Bilirubin 0.3 mg/dL (0.2-1.2) 11/09/16 13:40 AST 20 Units/L (5-34) 11/09/16 13:40 ALT 15 Units/L (0-55) 11/09/16 13:40 Amylase 65 Units/L (25-125) 11/09/16 13:40 Lipase 32 Units/L (8-78) 11/09/16 13:40 - ABG ABG results: PT/INR, D-dimer PT 12.3 Seconds (9.4-12.1) H 11/09/16 13:40 - Impressions Impressions Abdomen/Pelvis CT 11/11/16 11:35 IMPRESSION: 1. No acute findings within the abdomen or pelvis. In particular, no evidence of acute sacral or coccygeal injury. No pelvic hematoma. 2. Moderate left pleural effusion with some gravity dependent left lower lobe atelectasis. 3. Cholelithiasis with no acute features. D/ / Stevie Bui MD / Stevie Bui MD Interpreting Provider: Stevie Bui MD Consult Discharge Plan - Plan Referrals: Ruel Veloz MD [Primary Care Provider] - 11/18/16 2:00 pm <Yasmeen Ruiz - Last Filed: 11/11/16 16:59> Date of Encounter: 11/11/16 Time of Encounter: 13:00 - Time Spent With Patient Total time spent is greater than 50% in coordination of care (as documented) at patient's floor/unit and/or counseling patient: GI History of Present Illness - Data of Consult Requesting Physician: Joseph Sylvester MD - Consult Narrative History of present illness: Mr. French is a 61 year old male - Constitutional Vitals: Temp Pulse Resp BP Pulse Ox 97.6 F 63 16 159/76 96 11/11/16 15:00 11/11/16 15:00 11/11/16 15:00 11/11/16 15:00 11/11/16 15:00 Results - Labs CBC & Chem 7: 11/11/16 05:12 11/11/16 05:12 Labs: Last Result Calcium 8.6 mg/dL (8.6-10.8) 11/11/16 05:12 Troponin I 0.05 ng/mL (0-0.03) H* 11/10/16 18:11 Stool Occult Blood Positive (Negative) A 11/09/16 21:14 Entire Visit Hgb 8.7 g/dL (12.9-16.9) L 11/11/16 05:12 Hct 26.9 % (37.5-50.1) L 11/11/16 05:12 PT 12.3 Seconds (9.4-12.1) H 11/09/16 13:40 Total Bilirubin 0.3 mg/dL (0.2-1.2) 11/09/16 13:40 AST 20 Units/L (5-34) 11/09/16 13:40 ALT 15 Units/L (0-55) 11/09/16 13:40 Amylase 65 Units/L (25-125) 11/09/16 13:40 Lipase 32 Units/L (8-78) 11/09/16 13:40 - ABG ABG results: PT/INR, D-dimer PT 12.3 Seconds (9.4-12.1) H 11/09/16 13:40 - Impressions Impressions Abdomen/Pelvis CT 11/11/16 11:35 IMPRESSION: 1. No acute findings within the abdomen or pelvis. In particular, no evidence of acute sacral or coccygeal injury. No pelvic hematoma. 2. Moderate left pleural effusion with some gravity-dependent left lower lobe atelectasis. 3. Cholelithiasis with no acute features. D/ / 11/11/2016 12:33:46 Stevie Bui MD / [facility] Interpreting Provider: Stevie Bui MD - Attending Attestation I examined this patient and my medical decision-making was reviewed with the ASSOCIATE DOCTOR/PA/Advanced Practice Nurse/Resident Physician. I agree with the documented findings, disposition and treatment plan as described except to the extent set forth below.
[2016-11-11] MEDS ORDERED: SODIUM CHLORIDE/NAHCO3/KCL/PEG 4,000 ML SOLN.RECON PO ONE (17:00)
--- NOTE | 2016-11-11 20:11 | Internal Med Progress Note ---
Date of Encounter: 11/11/16 Time of Encounter: 10:00 - Assessment and plan (1) Anemia Current Visit: Yes Status: Chronic Assessment and plan: Patient is noted to have a 2-3 g drop in hemoglobin over the last 4 months and he is noted to have positive fecal occult blood test. He received 1 unit PRBC transfusion due to complaints of fatigue and generalized weakness with slight troponin leak but hemoglobin improved to less than 1 g. GI consultation saw Patient, plan for scopes tomorrow morning. Qualifiers: Anemia type: iron deficiency Iron deficiency anemia type: unspecified iron deficiency Qualified Code(s): D50.9 - Iron deficiency anemia, unspecified (2) CKD (chronic kidney disease) stage 4, GFR 15-29 ml/min Current Visit: Yes Status: Chronic Assessment and plan: Serum creatinine noted to be at baseline. Continue to monitor closely and avoid nephrotoxic agents. Patient follows with nephrology as an outpatient. (3) Coronary artery disease Current Visit: Yes Status: Chronic Assessment and plan: S/P CABG. Continue aspirin and atorvastatin Qualifiers: Coronary Disease-Associated Artery/Lesion type: bypass graft [place] vs. transplanted heart: [place] heart Associated angina: without angina Qualified Code(s): I25.810 - Atherosclerosis of coronary artery bypass graft(s) without angina pectoris (4) DM type 2 (diabetes mellitus, type 2) Current Visit: Yes Status: Chronic Assessment and plan: Accu-Chek blood glucose monitoring with basal and sliding scale insulin. Diabetic diet. 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 Patient has a chronic elevated troponin, trend down now. Qualifiers: Chest pain type: other chest pain Qualified Code(s): R07.89 - Other chest pain; R07.8 - Other chest pain (6) Hypertension Current Visit: No Status: Acute Assessment and plan: Poorly controlled hypertension, nefidipine XL added. Qualifiers: Hypertension type: essential hypertension Qualified Code(s): I10 - Essential (primary) hypertension (7) Elevated troponin Current Visit: Yes Status: Acute Assessment and plan: Patient has a chronic elevated troponin. Troponin is trending down. - Time Spent With Patient 25 - 35 minutes - Subjective Interval history: Patient is a 61-year-old male admitted for chest pain and noted no pinna pain. he was also found low hemoglobin and positive guaiac test. Past medical history is significant for CHF, CAD, diabetes, CKD. Patient was seen and examined, still complaining of mild abdominal pain. Denies chest pain or shortness of breath. Vital signs stable. No significant increase in hemoglobin after 1 unit of transfusion. GI consult appreciated, plan for scopes tomorrow morning. - Constitutional Vitals: Temp Pulse Resp BP Pulse Ox 97.3 F L 62 16 165/79 97 11/11/16 19:10 11/11/16 19:10 11/11/16 19:10 11/11/16 19:10 11/11/16 19:10 General appearance: Present: A&O X 3, answers questions appropriately - Head Head exam: Present: atraumatic, normocephalic - Eye Eye exam: Present: PERRL, conjuntiva pink, sclera anicteric Pupils: Present: PERRL - Neck Neck exam general surgery: Present: supple, trachea midline. Absent: lymphadenopathy - Respiratory Respiratory exam: Present: CTAB. Absent: accessory muscle use, rales, rhonchi, wheezes - Cardiovascular Cardiovascular exam: Present: RRR, +S1, +S2. Absent: diastolic murmur, gallop, rubs, systolic murmur - GI/Abdominal GI/Abdominal exam: Present: normal bowel sounds, soft, tenderness (Mild tenderness on right and the left upper quadrant, without rebound or guarding), no peritoneal signs. Absent: distended - Extremities Exam Extremities exam: Present: warm, radial pulses palpable and symetrical. Absent : calf tenderness, cyanotic, pedal edema - Neurological Exam Neurological exam: Present: CN II-XII intact, oriented X3, no focal deficits. Absent: pronater drift, facial droop, speech deficit - Skin Skin exam: Present: dry, intact Internal Medicine: Result - Labs CBC & Chem 7: 11/11/16 05:12 11/11/16 05:12 Labs: Short CBC 11/11/16 Range/Units 05:12 WBC 6.2 (4.3-11.1) K/mcL Hgb 8.7 L (12.9-16.9) g/dL Hct 26.9 L (37.5-50.1) % Plt Count 194 (140-400) K/mcL Neutrophils # 3.6 (1.6-8.9) K/mcL BMP 11/11/16 05:12 Sodium 139 Potassium 4.4 Chloride 109 Carbon Dioxide 22 BUN 80 H Creatinine 3.57 H Glucose 75 Calcium 8.6 Liver Function 11/11/16 Range/Units 05:12 Albumin 2.9 L (3.5-5.0) g/dL - ABG Interpretation ABG results: PT/INR, D-dimer PT 12.3 Seconds (9.4-12.1) H 11/09/16 13:40 - Impressions Impressions Abdomen/Pelvis CT 11/11/16 11:35 IMPRESSION: 1. No acute findings within the abdomen or pelvis. In particular, no evidence of acute sacral or coccygeal injury. No pelvic hematoma. 2. Moderate left pleural effusion with some gravity-dependent left lower lobe atelectasis. 3. Cholelithiasis with no acute features. D/ / 11/11/2016 12:33:46 Stevie Bui MD / [facility] Interpreting Provider: Stevie Bui MD - VTE Documentation of Mechanical Device: Graduated compression elastic hosiery Consult Discharge Plan - Plan Referrals: Ruel Veloz MD [Primary Care Provider] - 11/18/16 2:00 pm
[2016-11-11] MEDS: Aspirin 81 MG TAB.CHEW PO SCH (21:44)
[2016-11-11] MEDS: Insulin DETEMIR 100 UNIT/ML X5UNITS SQ SCH (21:45)
[2016-11-12 04:36] LABS: Basophils % 0.3 %; Eosinophils # 0.5 K/mcL (0.0-0.6); Eosinophils % 8.2 %; Hematocrit 27.9 % (37.5-50.1); Hemoglobin 9.2 g/dL (12.9-16.9); Immature Granulocytes % 0.3 % (0-4); Lymphocytes # 1.4 K/mcL (0.6-4.6); Lymphocytes % 24.2 %; Mean Corpuscular Hemoglobin 28.7 pg (28.0-33.3); Mean Corpuscular Volume 86.9 fL (83.0-100.0); Mean Platelet Volume 9.4 fL (9.4-12.4); Monocytes # 0.5 K/mcL (0.0-1.3); Monocytes % 8.3 %; Neutrophils # 3.4 K/mcL (1.6-8.9); Platelet Count 206 K/mcL (140-400); Red Blood Count 3.21 M/mcL (4.19-5.50); Red Cell Distribution Width 13.2 % (11.5-14.5); Segmented Neutrophils % 58.7 %
[2016-11-12 04:49] LABS: Calcium 8.6 mg/dL (8.6-10.8); Potassium 4.2 mEq/L (3.5-4.5)
[2016-11-12] MEDS: *HR* Heparin 5,000 UNIT/ML VIAL SQ SCH ×3 (05:56→21:55)
[2016-11-12] MEDS: Magnesium Oxide 400 MG TABLET PO SCH ×2 (07:51→21:53)
[2016-11-12] MEDS: Primidone 50 MG TABLET PO SCH (07:51)
[2016-11-12] MEDS: Insulin LISPRO 300 UNITS/3 ML VIAL SQ SCH ×4 (07:51→21:59)
[2016-11-12] MEDS: Furosemide 40 MG TABLET PO SCH (07:51)
[2016-11-12] MEDS: cloNIDine HCl 0.1 MG TABLET PO SCH (07:51)
[2016-11-12] MEDS: NIFEdipine XL (24 HR) 30 MG TAB.ER.24 PO SCH (07:51)
[2016-11-12] MEDS: hydrALAZINE 25 MG TABLET PO SCH ×4 (07:51→21:53)
[2016-11-12] MEDS: Ascorbic Acid 500 MG TABLET PO SCH (07:52)
[2016-11-12] MEDS ORDERED: Lidocaine -MPF 2% 5 ML VIAL INFILT ONE (10:16)
[2016-11-12] MEDS ORDERED: *HR* Propofol 500 MG/50 ML BOTTLE IVC ONE (10:16)
--- NOTE | 2016-11-12 12:30 | Anesthesia Evaluation PreOp ---
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: Other (tremors right hand) Other Medical History: Renal (CKD stage 4), Diabetes Type II, Other (depression) Anesthesia History: No Prior Anesthetic Complications, Past Anesthesia Alcohol Use: none Drug use: none Medications and Allergies Atorvastatin [Lipitor] 40 mg PO HS 03/16/15 [History] Cholecalciferol (Vitamin D3) [Vitamin D3] 50,000 unit PO SUWE 03/16/15 [History] Sertraline [Zoloft] 100 mg PO HS 03/16/15 [History] Dicyclomine [Bentyl] 10 mg PO TID #90 capsule 03/30/15 [Rx] TraMADol [Ultram] 50 mg PO BID PRN 12/26/15 [History] Primidone [Mysoline] 75 mg PO DAILY 03/31/16 [History] Ascorbic Acid [Vitamin C] 500 mg PO DAILY #30 tablet 04/25/16 [Rx] Insulin Glargine,Hum.rec.anlog [Lantus Solostar] 24 unit SQ HS 05/10/16 [History ] Magnesium Oxide [Mag-Ox] 400 mg PO BID 06/26/16 [History] Melatonin 5 mg PO HS 06/26/16 [History] Hydralazine HCl 25 mg PO QID #0 06/28/16 [Rx] Terazosin [Hytrin] 5 mg PO HS #60 capsule 06/28/16 [Rx] Acetaminophen [Tylenol] 650 mg PO Q6HR PRN 09/05/16 [History] CloNIDine HCl [Clonidine HCl] 0.2 mg PO DAILY 09/05/16 [History] Fluticasone Propionate Nasal [Flonase] 1 spr NS DAILY PRN 09/05/16 [History] Furosemide [Lasix] 40 mg PO DAILY 09/05/16 [History] Zolpidem [Ambien] 5 mg PO HS PRN 09/05/16 [History] Aspirin 81 mg PO HS 11/09/16 [History] Ferrous Sulfate 650 mg PO DAILY 11/09/16 [History] Promethazine HCl 12.5 mg PO TID PRN 11/09/16 [History] Allergies metoclopramide [From Reglan] Allergy (Intermediate, Verified 09/30/16 08:30) See Comments TREMORS - Meds/Allergy Pre-op Review Medications Reviewed: Yes Allergies Reviewed: Yes Beta Blockers on Current Med List: No Anesthesia Results - Labs 11/12/16 03:46 11/12/16 03:46 - Imaging EKG: report reviewed (11/09/2016 SR) Anesthesia Exam Vital Signs/O2 Sat/Glucose, Most Recent Temp Pulse Resp BP Pulse Ox 98.2 F 75 17 214/80 96 11/12/16 11:40 11/12/16 11:40 11/12/16 11:40 11/12/16 11:40 11/12/16 11:40 Blood Glucose* 96 Height: 5'11''/1.8 m Weight: 214 lbs/97.341 NPO (# of Hours): 8 Pain Scale: 3 Pain Scale Used: Numeric (1 - 10) - HEENT Pupil (Motor): EOMI Mallampati: III Teeth: Normal (chipped front lower tooth) Oral Opening: Greater than 3 - LIME FILTER OPERATOR LOC: Oriented LIME FILTER OPERATOR Motor: Normal RLE, Normal LLE, Normal Face, Deficit RUE, Deficit LUE LIME FILTER OPERATOR Sensory: Normal: Face, Deficit: RUE, LUE, RLE, LLE - Cardiac Rhythm: Regular Murmur: None - Pulmonary Breath Sounds: bilateral Clear Respiratory Effort: Symmetrical Anesthesia Assess/Plan ASA Score: 4 Modified Malone Scale for Level of Consciousness: Cooperative, oriented, and tranquil Anesthetic Plan: MAC Monitoring Plan: Standard Monitors
--- NOTE | 2016-11-12 15:12 | Anesthesia Evaluation Post Op ---
Date of Encounter: 11/12/16 Time of Encounter: 15:10 - Vital Signs Vital Signs: 151/80, hr63, SpO2 97%, RR 16 - Lungs Lungs: Clear Ascult./Percussion - Airway Airway: Non-obstructed - Cardiovascular Regular Rate - Mental Status Mental Status: Alert & Oriented, Answers Appropriately - Pain Pain Scale: 0 Pain Scale used: Numeric (1 - 10) - Nausea Vomiting Nausea Vomiting: Not Present - Hydration Hydration: NPO, Has not voided - Discharge PostOp Status: Transfer Patient to floor
--- NOTE | 2016-11-12 19:03 | Internal Med Progress Note ---
Date of Encounter: 11/12/16 Time of Encounter: 10:00 - Assessment and plan (1) Anemia Current Visit: Yes Status: Chronic Assessment and plan: Patient is noted to have a 2-3 g drop in hemoglobin over the last 4 months and he is noted to have positive fecal occult blood test. He received 1 unit PRBC transfusion due to complaints of fatigue and generalized weakness with slight troponin leak but hemoglobin improved to less than 1 g. GI consultation saw Patient, did EGD and colonoscopy. Qualifiers: Anemia type: iron deficiency Iron deficiency anemia type: unspecified iron deficiency Qualified Code(s): D50.9 - Iron deficiency anemia, unspecified (2) CKD (chronic kidney disease) stage 4, GFR 15-29 ml/min Current Visit: Yes Status: Chronic Assessment and plan: Serum creatinine noted to be at baseline. Continue to monitor closely and avoid nephrotoxic agents. Patient follows with nephrology as an outpatient. (3) Coronary artery disease Current Visit: Yes Status: Chronic Assessment and plan: S/P CABG. Continue aspirin and atorvastatin Qualifiers: Coronary Disease-Associated Artery/Lesion type: bypass graft [place] vs. transplanted heart: [place] heart Associated angina: without angina Qualified Code(s): I25.810 - Atherosclerosis of coronary artery bypass graft(s) without angina pectoris (4) DM type 2 (diabetes mellitus, type 2) Current Visit: Yes Status: Chronic Assessment and plan: Accu-Chek blood glucose monitoring with basal and sliding scale insulin. Diabetic diet. 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 Patient has a chronic elevated troponin, trend down now. Qualifiers: Chest pain type: other chest pain Qualified Code(s): R07.89 - Other chest pain; R07.8 - Other chest pain (6) Hypertension Current Visit: No Status: Acute Assessment and plan: Poorly controlled hypertension, add labetalol 200mg bid. Qualifiers: Hypertension type: essential hypertension Qualified Code(s): I10 - Essential (primary) hypertension (7) Elevated troponin Current Visit: Yes Status: Acute Assessment and plan: Patient has a chronic elevated troponin. Troponin is trending down. - Time Spent With Patient 25 - 35 minutes - Subjective Interval history: Patient is a 61-year-old male admitted for chest pain and noted abd pain. he was also found low hemoglobin and positive guaiac test. Past medical history is significant for CHF, CAD, diabetes, CKD. Patient was seen and examined, abdominal pain improved. Denies chest pain or shortness of breath. Vital signs stable. No significant increase in hemoglobin after 1 unit of transfusion. GI did EGD and a colonoscopy today, no active bleeding identified. - Constitutional Vitals: Temp Pulse Resp BP Pulse Ox 98.3 F 68 16 218/86 97 11/12/16 18:43 11/12/16 18:43 11/12/16 18:43 11/12/16 18:43 11/12/16 18:43 General appearance: Present: A&O X 3, answers questions appropriately - Head Head exam: Present: atraumatic, normocephalic - Eye Eye exam: Present: PERRL, conjuntiva pink, sclera anicteric Pupils: Present: PERRL - Neck Neck exam general surgery: Present: supple, trachea midline. Absent: lymphadenopathy - Respiratory Respiratory exam: Present: CTAB. Absent: accessory muscle use, rales, rhonchi, wheezes - Cardiovascular Cardiovascular exam: Present: RRR, +S1, +S2. Absent: diastolic murmur, gallop, rubs, systolic murmur - GI/Abdominal GI/Abdominal exam: Present: normal bowel sounds, soft, no peritoneal signs. Absent: distended, tenderness - Extremities Exam Extremities exam: Present: warm, radial pulses palpable and symetrical. Absent : calf tenderness, cyanotic, pedal edema - Neurological Exam Neurological exam: Present: CN II-XII intact, oriented X3, no focal deficits. Absent: pronater drift, facial droop, speech deficit - Skin Skin exam: Present: dry, intact Internal Medicine: Result - Labs CBC & Chem 7: 11/12/16 03:46 11/12/16 03:46 Labs: Short CBC 11/12/16 Range/Units 03:46 WBC 5.8 (4.3-11.1) K/mcL Hgb 9.2 L (12.9-16.9) g/dL Hct 27.9 L (37.5-50.1) % Plt Count 206 (140-400) K/mcL Neutrophils # 3.4 (1.6-8.9) K/mcL BMP 11/12/16 03:46 Sodium 138 Potassium 4.2 Chloride 107 Carbon Dioxide 21 BUN 74 H Creatinine 3.52 H Glucose 82 Calcium 8.6 - ABG Interpretation ABG results: PT/INR, D-dimer PT 12.3 Seconds (9.4-12.1) H 11/09/16 13:40 - VTE Documentation of Mechanical Device: Graduated compression elastic hosiery Consult Discharge Plan - Plan Referrals: Ruel Veloz MD [Primary Care Provider] - 11/18/16 2:00 pm
[2016-11-12] MEDS: traMADol 50 MG TABLET PO PRN (20:22)
[2016-11-12] MEDS: Ondansetron 4 MG/2 ML VIAL IVP PRN (20:49)
[2016-11-12] MEDS: Aspirin 81 MG TAB.CHEW PO SCH (21:53)
[2016-11-12] MEDS: Insulin DETEMIR 100 UNIT/ML X5UNITS SQ SCH (22:00)
[2016-11-13] MEDS: *HR* Heparin 5,000 UNIT/ML VIAL SQ SCH (05:24)
[2016-11-13 07:12] LABS: Basophils % 0.7 %; Eosinophils # 0.2 K/mcL (0.0-0.6); Eosinophils % 4.1 %; Hematocrit 26.3 % (37.5-50.1); Hemoglobin 8.6 g/dL (12.9-16.9); Immature Granulocytes % 0.3 % (0-4); Lymphocytes # 1.3 K/mcL (0.6-4.6); Lymphocytes % 21.5 %; Mean Corpuscular HGB Conc 32.7 g/dL (31.6-35.5); Mean Corpuscular Volume 88.6 fL (83.0-100.0); Mean Platelet Volume 9.8 fL (9.4-12.4); Monocytes # 0.6 K/mcL (0.0-1.3); Neutrophils # 3.8 K/mcL (1.6-8.9); Platelet Count 197 K/mcL (140-400); Red Blood Count 2.97 M/mcL (4.19-5.50); Red Cell Distribution Width 13.3 % (11.5-14.5); Segmented Neutrophils % 63.4 %
[2016-11-13] MEDS: Insulin LISPRO 300 UNITS/3 ML VIAL SQ SCH ×2 (08:22→12:48)
[2016-11-13] MEDS ORDERED: cloNIDine HCl 0.1 MG TABLET PO SCH (09:00)
[2016-11-13] MEDS: hydrALAZINE 25 MG TABLET PO SCH ×2 (09:37→12:48)
[2016-11-13] MEDS: Furosemide 40 MG TABLET PO SCH (09:37)
[2016-11-13] MEDS: Ascorbic Acid 500 MG TABLET PO SCH (09:37)
[2016-11-13] MEDS: Magnesium Oxide 400 MG TABLET PO SCH (09:38)
[2016-11-13] MEDS: NIFEdipine XL (24 HR) 30 MG TAB.ER.24 PO SCH (09:38)
[2016-11-13] MEDS: Primidone 50 MG TABLET PO SCH (09:38)
[2016-11-13 11:49] LABS: Calcium 8.5 mg/dL (8.6-10.8); Potassium 4.5 mEq/L (3.5-4.5)
[2016-11-13 12:21] LABS: Folate 12.1 ng/mL (7.0-31.4)
--- NOTE | 2016-11-13 13:24 | Discharge Summary ---
Date of Encounter: 11/13/16 Time of Encounter: 10:00 - Discharge Diagnosis (1) Anemia Priority: Primary Status: Chronic Qualifiers: Anemia type: iron deficiency Iron deficiency anemia type: unspecified iron deficiency Qualified Code(s): D50.9 - Iron deficiency anemia, unspecified (2) CKD (chronic kidney disease) stage 4, GFR 15-29 ml/min Priority: Secondary Status: Chronic (3) Coronary artery disease Priority: Secondary Status: Chronic Qualifiers: Coronary Disease-Associated Artery/Lesion type: bypass graft [place] vs. 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 technician use Chronic kidney disease stage: stage 4 (severe) Qualified Code(s): E11.22 - Type 2 diabetes mellitus with diabetic chronic kidney disease; N18.4 - Chronic kidney disease, stage 4 (severe); 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 (5) Chest pain Priority: Primary Status: Ruled-out Qualifiers: Chest pain type: other chest pain Qualified Code(s): R07.89 - Other chest pain; R07.8 - Other chest pain (6) Hypertension Priority: Secondary Status: Acute Qualifiers: Hypertension type: essential hypertension Qualified Code(s): I10 - Essential (primary) hypertension (7) Elevated troponin Priority: Primary Status: Acute - Discharge Medications Prescriptions: CloNIDine HCl 0.2 mg PO BID #120 tablet NIFEdipine XL (24 HR) [Procardia XL] 90 mg PO DAILY #90 tab.er.24 Home Medications: Atorvastatin [Lipitor] 40 mg PO HS 03/16/15 [History] Cholecalciferol (Vitamin D3) [Vitamin D3] 50,000 unit PO SUWE 03/16/15 [History] Sertraline [Zoloft] 100 mg PO HS 03/16/15 [History] Dicyclomine [Bentyl] 10 mg PO TID #90 capsule 03/30/15 [Rx] TraMADol [Ultram] 50 mg PO BID PRN 12/26/15 [History] Primidone [Mysoline] 75 mg PO DAILY 03/31/16 [History] Ascorbic Acid [Vitamin C] 500 mg PO DAILY #30 tablet 04/25/16 [Rx] Insulin Glargine,Hum.rec.anlog [Lantus Solostar] 24 unit SQ HS 05/10/16 [History ] Magnesium Oxide [Mag-Ox] 400 mg PO BID 06/26/16 [History] Melatonin 5 mg PO HS 06/26/16 [History] Hydralazine HCl 25 mg PO QID #0 06/28/16 [Rx] Terazosin [Hytrin] 5 mg PO HS #60 capsule 06/28/16 [Rx] Acetaminophen [Tylenol] 650 mg PO Q6HR PRN 09/05/16 [History] Fluticasone Propionate Nasal [Flonase] 1 spr NS DAILY PRN 09/05/16 [History] Furosemide [Lasix] 40 mg PO DAILY 09/05/16 [History] Zolpidem [Ambien] 5 mg PO HS PRN 09/05/16 [History] Aspirin 81 mg PO HS 11/09/16 [History] Ferrous Sulfate 650 mg PO DAILY 11/09/16 [History] Promethazine HCl 12.5 mg PO TID PRN 11/09/16 [History] CloNIDine HCl 0.2 mg PO BID #120 tablet 11/13/16 [Rx] NIFEdipine XL (24 HR) [Procardia XL] 90 mg PO DAILY #90 tab.er.24 11/13/16 [Rx] Allergies/Adverse Reactions: Allergies metoclopramide [From Reglan] Allergy (Intermediate, Verified 09/30/16 08:30) See Comments TREMORS Procedures/tests Complete & Pending: Procedures Performed prior 72 hours Category Date Time Status CT abd pelvis wo no iv no oral [CT] Stat Cat Scan 11/11/16 11:35 Completed - Notes to Outpatient Provider Patient's blood pressure medication has been adjusted: Increase clonidine dose to 0.2 mg twice a day. Add Nifedipine XL 90mg po qd. please a follow-up BP Date of admission: 11/09/16 15:40 Primary care physician: Ruel Veloz MD Consults: 11/09/16 18:29 Consult to Medical Examiner [CONS] Routine Reason for SW Consult: HH and financial concerns. 11/09/16 18:45 Consult to Wound Care [CONS] Routine Reason for Consult: right heel ulcer, patient also complaining of sacaral pain. Call Completed: No 11/10/16 13:26 Consult to Gastroenterology [CONS] Routine Consulting Provider: Dieter Jeong Reason for Consult: Acute anemia, FOBT positive Call Completed: Yes Discharging clinician: Joseph Sylvester Anticipated date of discharge: 11/13/16 - Patient Status Disposition: Home, Self-Care Condition: Good Functional capacity at discharge: independent ambulation Overall status at discharge: patient is back to baseline - Discharge Instructions Follow Up With: Ruel Veloz MD [Primary Care Provider] - 11/18/16 2:00 pm Yasmeen Ruiz MD [Partnered Physician] - - Diet and Activity Activity: increase activity as tolerated Diet: other (Renal diet, diabetes diet ) Interval History: Mr. French is a 61 year old male with hypertension, hyperlipidemia, type 2 diabetes, chronic kidney disease stage IV, history of DVT and PE, coronary artery disease status post CABG in March 2016, congestive heart failure, and essential tremor, presented to the emergency department today with complaints of abdominal pain, nausea, and chest pain. Patient reports he has not slept in 2-3 days, he has had abdominal pain he describes as constant, severe pain accompanied by nausea, and dry heaving. He reports a poor appetite over the last several days, but is able to keep down fluids. He has had regular bowel movements with last one today. He reports headaches, but denies any lightheadedness he reports some mild chest pain earlier today that is now resolved. Denies any shortness of breath , palpitations. As a chronic cough nonproductive. He reports numbness and tingling in his hands and feet which is chronic as well. Patient reports he removed a tick from the side of his leg earlier today. Evaluation in the emergency department included a chest x-ray which showed small left pleural effusion decreased in size from previous exam, EKG showed normal sinus rhythm with no ST elevations or depressions. Troponin was elevated to 0.08, however this is in the setting of chronic kidney disease, and patient's troponin has been chronically elevated recently. Hemoglobin was 8.4 down from his previous of 10.0 white blood cell count was normal at 6.5. BUN and creatinine were consistent with his baseline chronic kidney disease. Patient was hypertensive with blood pressure in the 170-200/80-90s. On exam, patient is alert and oriented in no acute distress. Heart has regular rate and rhythm, lungs are clear bilaterally to auscultation. Bilateral lower extremities have +1 edema. Hospital course: Mr. French is a 61 year old male admitted for abdominal pain, chest pain, and a low hemoglobin. He was placed on close monitoring, 3 sets of troponin tracked, shows levels trended down (0.08, 0.06, 0.05). Patient has a chronic elevation of troponin. He also has history of CKD following nephrology as outpatient. Patient's chest pain is atypical and resolved during hospitalization. His abdominal examination is benign, abdominal pain resolved during hospitalization. Patient has anemia, GI consult was called, EGD and colonoscopy has been done, no active bleeding. Patient has uncontrolled hypertension, BP medication has been adjusted. Examined Patient today, he is awake alert, oriented 3. Denies chest pain, shortness of breath, abdominal pain, or nausea vomiting. Vitals are stable. Patient is stable to discharge home, he will follow-up with PCP and nephrology as outpatient. - Time Spent with Patient Total time spent providing and/or coordinating discharge services: 40 minutes Greater than 30 minutes - Constitutional Vitals: Temp Pulse Resp BP Pulse Ox 97.5 F L 54 16 124/58 95 11/13/16 11:07 11/13/16 11:07 11/13/16 11:07 11/13/16 11:07 11/13/16 11:07 General appearance: Present: A&O X 3, answers questions appropriately - Head Head exam: Present: atraumatic, normocephalic - Eye Eye exam: Present: PERRL, conjuntiva pink, sclera anicteric Pupils: Present: PERRL - Neck Neck exam general surgery: Present: supple, trachea midline. Absent: lymphadenopathy - Respiratory Respiratory exam: Present: CTAB. Absent: accessory muscle use, rales, rhonchi, wheezes - Cardiovascular Cardiovascular exam: Present: RRR, +S1, +S2. Absent: diastolic murmur, gallop, rubs, systolic murmur - GI/Abdominal GI/Abdominal exam: Present: normal bowel sounds, soft, no peritoneal signs. Absent: distended, tenderness - Extremities Exam Extremities exam: Present: warm, radial pulses palpable and symetrical. Absent : calf tenderness, cyanotic, pedal edema - Neurological Exam Neurological exam: Present: CN II-XII intact, oriented X3, no focal deficits. Absent: pronater drift, facial droop, speech deficit - Skin Skin exam: Present: dry, intact - VTE Documentation of Mechanical Device: Graduated compression elastic hosiery
[2016-11-13 15:20] VITALS: BP 136/61
--- NOTE | 2016-11-13 15:21 | Physician Discharge Referral ---
Home Health/Hosp Referral Info Transfer to: Home Health Provider in Charge Post Discharge: PCP - Diagnosis (1) Anemia Status: Chronic (2) CKD (chronic kidney disease) stage 4, GFR 15-29 ml/min Status: Chronic (3) Coronary artery disease Status: Chronic (4) DM type 2 (diabetes mellitus, type 2) Status: Chronic (5) Chest pain Status: Ruled-out (6) Hypertension Status: Acute (7) Elevated troponin Status: Acute - Respiratory Orders Smoking Cessation: Smoking cessation has been advised. For more information, call the [place] Tobacco Quit Line at 7-532-FISQ-NOW. - Diet/Nutrition Diet/Nutrition Orders: Renal, No Concentrated Sweets - Services Needed Following services are medically necessary services: Nursing, Home Health Aide, Physical Therapy, Occupational Therapy - Transfer Medications Prescriptions: CloNIDine HCl 0.2 mg PO BID #120 tablet NIFEdipine XL (24 HR) [Procardia XL] 90 mg PO DAILY #90 tab.er.24 Home Medications: Atorvastatin [Lipitor] 40 mg PO HS 03/16/15 [History] Cholecalciferol (Vitamin D3) [Vitamin D3] 50,000 unit PO SUWE 03/16/15 [History] Sertraline [Zoloft] 100 mg PO HS 03/16/15 [History] Dicyclomine [Bentyl] 10 mg PO TID #90 capsule 03/30/15 [Rx] TraMADol [Ultram] 50 mg PO BID PRN 12/26/15 [History] Primidone [Mysoline] 75 mg PO DAILY 03/31/16 [History] Ascorbic Acid [Vitamin C] 500 mg PO DAILY #30 tablet 04/25/16 [Rx] Insulin Glargine,Hum.rec.anlog [Lantus Solostar] 24 unit SQ HS 05/10/16 [History ] Magnesium Oxide [Mag-Ox] 400 mg PO BID 06/26/16 [History] Melatonin 5 mg PO HS 06/26/16 [History] Hydralazine HCl 25 mg PO QID #0 06/28/16 [Rx] Terazosin [Hytrin] 5 mg PO HS #60 capsule 06/28/16 [Rx] Acetaminophen [Tylenol] 650 mg PO Q6HR PRN 09/05/16 [History] Fluticasone Propionate Nasal [Flonase] 1 spr NS DAILY PRN 09/05/16 [History] Furosemide [Lasix] 40 mg PO DAILY 09/05/16 [History] Zolpidem [Ambien] 5 mg PO HS PRN 09/05/16 [History] Aspirin 81 mg PO HS 11/09/16 [History] Ferrous Sulfate 650 mg PO DAILY 11/09/16 [History] Promethazine HCl 12.5 mg PO TID PRN 11/09/16 [History] CloNIDine HCl 0.2 mg PO BID #120 tablet 11/13/16 [Rx] NIFEdipine XL (24 HR) [Procardia XL] 90 mg PO DAILY #90 tab.er.24 11/13/16 [Rx] Allergies/Adverse Reactions: Allergies metoclopramide [From Reglan] Allergy (Intermediate, Verified 09/30/16 08:30) See Comments TREMORS Certification: Further, I certify that my clinical findings support that this patient is homebound (i.e. absences from home require considerable and taxing effort and are for medical reasons or evangelical services or infrequently or short duration when for other reasons) because: Homebound Reason: Patient requires assistance of a person or device to safely leave home Attestation: My signature below is to certify that this patient is under my care and that I, or nurse practitioner, or a physician's urgent care physician assistant working with me, has a face-to -face encounter with this patient.
== END 2016-11-13 15:40 | disposition home health service (06) ==
LOC: EMEROO 13:07 → 3BNU 13:07 → SUATTDRO 15:40 → 3BNU 15:56
PROVIDERS: ADMIT Hospitalist; ATTEND Internal Medicine
PROC: ENDOEBX (2016-11-12 13:00)

== ENCOUNTER 2016-11-22 16:35 | Inpatient (IN) ==
--- NOTE | 2016-11-22 17:29 | Emergency Department Note ---
Disposition Clinical Impression: Slurred speech, Pleural effusion, Elevated blood pressure reading Anemia Qualifiers: Anemia type: unspecified type Qualified Code(s): D64.9 - Anemia, unspecified CKD (chronic kidney disease) Qualifiers: Chronic kidney disease stage: unspecified stage Qualified Code(s): N18.9 - Chronic kidney disease, unspecified Disposition: Admitted As Inpatient Condition: Fair General Adult HPI - General Chief complaint: ED Neuro Symptoms/Deficit Stated complaint: neuro symptoms Time Seen by Provider: 11/22/16 17:10 Source: patient, family Mode of arrival: ambulatory Limitations: no limitations Nursing Notes Reviewed: Yes Vital Signs Reviewed: Yes - History of Present Illness HPI Narrative: 61-year-old male history of depression, coronary artery disease, hypertension, diabetes, CAD presents for evaluation of generalized weakness. Patient states that "I feel useless". Patient denies any suicidal or homicidal ideations. Patient is post generalized weakness, slurring of his words. Noted also bitten his tongue. Denies any seizures or episodes of seizure-like activity. States that he was last well couple days ago. No history of strokes from what he is able to recall. Reports that he was recently admitted for gastroenteritis and had an endoscopy where polyps were removed. Patient's blood pressure medication was adjusted. Only new medication is Procardia. Denies any chest pain or short of breath. No fevers or cough. At bedside the patient does have a noticeable right facial droop that resolves upon conversation and smiling. Patient has no other focal neurologic deficit. No abdominal pain. No dark tarry stools or blood in the stool. No nausea or vomiting. Pain Scale: 2 - Related Data Home Medications Medication Instructions Recorded Confirmed Atorvastatin [Lipitor] 40 mg PO HS 03/16/15 11/09/16 Cholecalciferol (Vitamin D3) 50,000 unit PO SUWE 03/16/15 11/09/16 [Vitamin D3] Sertraline [Zoloft] 100 mg PO HS 03/16/15 11/09/16 TraMADol [Ultram] 50 mg PO BID PRN 12/26/15 11/09/16 Primidone [Mysoline] 75 mg PO DAILY 03/31/16 11/09/16 Insulin Glargine,Hum.rec.anlog 24 unit SQ HS 05/10/16 11/09/16 [Lantus Solostar] Magnesium Oxide [Mag-Ox] 400 mg PO BID 06/26/16 11/09/16 Melatonin 5 mg PO HS 06/26/16 11/09/16 Acetaminophen [Tylenol] 650 mg PO Q6HR PRN 09/05/16 11/09/16 Fluticasone Propionate Nasal 1 spr NS DAILY PRN 09/05/16 11/09/16 [Flonase] Furosemide [Lasix] 40 mg PO DAILY 09/05/16 11/09/16 Zolpidem [Ambien] 5 mg PO HS PRN 09/05/16 11/09/16 Aspirin 81 mg PO HS 11/09/16 11/09/16 Ferrous Sulfate 650 mg PO DAILY 11/09/16 11/09/16 Promethazine HCl 12.5 mg PO TID PRN 11/09/16 11/09/16 Previous Rx's Medication Instructions Recorded Dicyclomine [Bentyl] 10 mg PO TID #90 capsule 03/30/15 Ascorbic Acid [Vitamin C] 500 mg PO DAILY #30 tablet 04/25/16 Hydralazine HCl 25 mg PO QID #0 06/28/16 Terazosin [Hytrin] 5 mg PO HS #60 capsule 06/28/16 CloNIDine HCl 0.2 mg PO BID #120 tablet 11/13/16 NIFEdipine XL (24 HR) [Procardia 90 mg PO DAILY #90 tab.er.24 11/13/16 XL] Allergies Allergy/AdvReac Type Severity Reaction Status Date / Time metoclopramide [From Reglan] Allergy Intermediate See Verified 11/22/16 17:04 Comments All systems ED: reviewed and negative except as stated. Constitutional: Reports: as per HPI. Denies: fever Eyes: Reports: as per HPI ENT ED: Reports: as per HPI Cardiovascular: Reports: as per HPI. Denies: chest pain Respiratory: Reports: as per HPI. Denies: dyspnea Gastrointestinal: Reports: as per HPI. Denies: abdominal pain, nausea, vomiting Genitourinary: Reports: as per HPI Musculoskeletal: Reports: as per HPI Integumentary: Reports: as per HPI Neurological: Reports: as per HPI, weakness. Denies: paresthesias, confusion Psychiatric: Reports: as per HPI Endocrine: Reports: as per HPI Hematological/Lymphatic: Reports: as per HPI Allergic/Immunologic: Reports: as per HPI Past Medical History - Past Medical History Medical history: Reports: arthritis, CHF, coronary artery disease, DVT, diabetes , hyperlipidemia, hypertension, pulmonary embolus, renal disease, other Surgical history: Reports: cataract, coronary bypass (CABG), vascular surgery ( AVF placement), other Psychiatric history: Reports: depression - Social History Smoking Status: Never smoker Smokeless Tobacco Status: No Alcohol use: Reports: none Drug use: Reports: none Physical Exam - General Limitations: no limitations General appearance: alert, in no apparent distress - Head Head exam: atraumatic, normocephalic, normal inspection - Eye Eye exam: Present: normal appearance, PERRL, EOMI. Absent: nystagmus - ENT ENT exam: normal exam, normal oropharynx, mucous membranes moist - Neck Neck exam: Present: normal inspection, trachea midline. Absent: tenderness, meningismus - Chest Chest inspection: Present: normal inspection, symmetric chest wall rise - Respiratory Respiratory exam: Present: normal lung sounds bilaterally. Absent: respiratory distress, prolonged expiratory phase - Cardiovascular Cardiovascular exam: Present: regular rate, normal rhythm - Abdominal Exam Abdominal exam: Present: soft, Non-Tender - Extremities Exam Extremities exam: Present: normal inspection, pedal edema (Trace bilateral) - Expanded Upper Extremity Exam Shoulder exam: Present: normal inspection Arm exam: Present: normal inspection Elbow exam: Present: normal inspection Forearm/Wrist exam: Present: normal inspection, other (Palpable right wrist AV fistula) - Expanded Lower Extremity Exam Neurovascular/Tendon exam: Present: normal capillary refill - Back Exam Back exam: Present: normal inspection - Neurological Exam Neurological exam: Present: alert, oriented X3, CN II-XII intact, other (Does have right facial droop that resolved with conversation and smiling.) - Expanded Neurological Exam Patient oriented to: Present: person, place, time Speech: Present: fluid speech Cranial nerves: EOM function (II, III, IV, ): Normal, facial sensation (V): Normal, facial palsy (VII): Normal, spinal accessory function (XI): Normal, tongue deviation (XII): Normal Cerebellar function: finger to nose: Normal Motor strength - LUE: 5/5 Motor strength - RUE: 5/5 Motor strength - LLE: 5/5 Motor strength - RLE: 5/5 Sensory exam upper extremity: light touch: Normal Sensory exam lower extremity: light touch: Normal Coma Scale Eye Opening: Spontaneous Coma Scale Motor Response: Obeys Commands Coma Scale Verbal Response: Oriented Coma Scale Total: 15 - Skin Skin exam: Present: warm, dry, intact, normal color Course Course Narrative: Patient seen and examined. Patient's in no acute distress. Patient does have neuro symptoms that have been present for the past 24-48 hours. Last known well was approximately that time as well. This is not a stroke alert. Patient will get basic lab work, EKG, head CT and disposition pending. - Reevaluation(s) Reevaluation #1: Patients in no acute distress. Patient stress and Sleep. Family at bedside and updated on plan of care. Time: 19:52 Vital Signs Temperature 98.1 F 11/22/16 16:57 Pulse Rate 59 11/22/16 16:57 Respiratory Rate 14 11/22/16 16:57 Blood Pressure 203/83 11/22/16 16:57 O2 Sat by Pulse Oximetry 95 11/22/16 16:57 Temperature 98.1 F 11/22/16 16:57 Pulse Rate 82 11/22/16 21:32 Respiratory Rate 20 11/22/16 21:32 Blood Pressure 211/90 11/22/16 21:32 O2 Sat by Pulse Oximetry 93 11/22/16 21:32 Oxygen Delivery Oxygen Delivery Nasal Cannula Medical Decision Making - [facility] Narrative Medical decision making narrative: 61-year-old male presents for evaluation of generalized weakness. Patient denies any falls. Patient denies any shortness of breath or cough. Patient does have an extensive past medical history which includes chronic kidney disease nearing dialysis. Patient reports that he still produces urine. Patient had chest x-ray obtained which shows persistent pleural effusion versus atelectasis versus secondary pneumonia. In order to better visualize patient's lungs a chest CT was obtained. Patient also had what appeared to be slurred speech. Possibly aspiration as a source. Patient had a nonfocal exam otherwise. Patient's last known well was 2 days ago. Patient was not a stroke alert. Patient does have right lower facial droop which resolved with smiling and facial movement. Patient's labs reviewed shows he is chronically anemic. Likely secondary to his kidney disease. Patient also has worsening kidney function. Patient will be admitted for acute on chronic kidney failure, pleural effusion possible secondary pneumonia as well as his slurred speech. Patient's CT of his head shows no acute abnormalities. Patient was given a fluid bolus in the emergency department. Patient's records reviewed and shows that he had a limited echo last year but EF of 55%. Patient's symptoms possibly related to his worsening kidney function. Patient's blood pressure was also elevated and is on hydrochlorothiazide to help with blood pressure management. Patient was given 1 dose of hydralazine in the emergency department to address his blood pressure. Patient's CT of his chest shows pleural effusions. Patient has not been having significant signs or symptoms that would suggest infection. Patient has had a mild cough but no fevers. It has been nonproductive. Patient was not started on antibiotics in the emergency department based on his clinical presentation. Likely symptoms related to his worsening CKD. - Lab Data Lab results reviewed: Yes I reviewed the patient's lab results. Result diagrams: 11/22/16 18:40 11/22/16 18:40 Lab Results 11/22/16 11/22/16 11/22/16 Range/Units 18:40 18:40 18:40 WBC 6.3 (4.3-11.1) K/mcL RBC 2.88 L (4.19-5.50) M/mcL Hgb 8.3 L (12.9-16.9) g/dL Hct 25.8 L (37.5-50.1) % MCV 89.6 (83.0-100.0) fL MCH 28.8 (28.0-33.3) pg MCHC 32.2 (31.6-35.5) g/dL RDW 13.2 (11.5-14.5) % Plt Count 215 (140-400) K/mcL MPV 9.6 (9.4-12.4) fL Immature Gran % 0.2 (0-4) % Seg Neutrophils % 57.7 % Lymphocytes % 23.3 % Monocytes % 9.7 % Eosinophils % 8.5 % Basophils % 0.6 % Neutrophils # 3.6 (1.6-8.9) K/mcL Lymphocytes # 1.5 (0.6-4.6) K/mcL Monocytes # 0.6 (0.0-1.3) K/mcL Eosinophils # 0.5 (0.0-0.6) K/mcL Basophils # 0.0 (0.0-0.2) K/mcL PT 12.4 H (9.4-12.1) Seconds INR 1.1 APTT 31.5 (26.0-36.0) Seconds Sodium 140 (136-145) mEq/L Potassium 5.4 H (3.5-4.5) mEq/L Chloride 110 H (98-109) mEq/L Carbon Dioxide 20 (19-29) mEq/L BUN 99 H (8-26) mg/dL Creatinine 3.82 H (0.72-1.25) mg/dL Est GFR ( Amer) 19 L (> 60) Est GFR (Non-Af Amer) 16 L (> 60) BUN/Creatinine Ratio 26 (6-26) Glucose 139 H (70-99) mg/dL Calculated Osmolality 323 H (280-300) Calcium 8.7 (8.6-10.8) mg/dL Troponin I (0-0.03) ng/mL 11/22/16 Range/Units 18:40 WBC (4.3-11.1) K/mcL RBC (4.19-5.50) M/mcL Hgb (12.9-16.9) g/dL Hct (37.5-50.1) % MCV (83.0-100.0) fL MCH (28.0-33.3) pg MCHC (31.6-35.5) g/dL RDW (11.5-14.5) % Plt Count (140-400) K/mcL MPV (9.4-12.4) fL Immature Gran % (0-4) % Seg Neutrophils % % Lymphocytes % % Monocytes % % Eosinophils % % Basophils % % Neutrophils # (1.6-8.9) K/mcL Lymphocytes # (0.6-4.6) K/mcL Monocytes # (0.0-1.3) K/mcL Eosinophils # (0.0-0.6) K/mcL Basophils # (0.0-0.2) K/mcL PT (9.4-12.1) Seconds INR APTT (26.0-36.0) Seconds Sodium (136-145) mEq/L Potassium (3.5-4.5) mEq/L Chloride (98-109) mEq/L Carbon Dioxide (19-29) mEq/L BUN (8-26) mg/dL Creatinine (0.72-1.25) mg/dL Est GFR ( Amer) (> 60) Est GFR (Non-Af Amer) (> 60) BUN/Creatinine Ratio (6-26) Glucose (70-99) mg/dL Calculated Osmolality (280-300) Calcium (8.6-10.8) mg/dL Troponin I 0.03 (0-0.03) ng/mL - Radiology Data Radiology results reviewed: Yes I reviewed the patient's radiology results. Chest X-Ray 11/22/16 17:24 IMPRESSION: 1. Persistent left pleural effusion with increased underlying left basilar atelectasis and/or pneumonia. 2. Trace right pleural effusion. 3. Pulmonary vascular congestion with possible bilateral perihilar edema. D/ / Antonio Allen MD / Antonio Allen MD Interpreting Provider: Antonio Allen MD Head CT 11/22/16 17:25 IMPRESSION: No hemorrhage or mass Mild atrophy with mild periventricular and scattered frontal parietal white matter disease, likely due to small-vessel ischemic change. Trace paranasal sinus disease D/ / Kashmir Zhang MD / Kashmir Zhang MD Interpreting Provider: Kashmir Zhang MD - EKG Data EKG #1 EKG shows normal: sinus rhythm Rate: normal Rhythm: NSR [place]/QRS: normal QTc: other (424) Interpretation: no acute changes, nonspecific ST-T wave changes S.B.A.R. - S.B.A.R. Situation: Demographics, MOA Background: Presenting Complaint Assessment: Vital Signs, Course and respsone to treatment, Patient/Family Expectation, Pertinant Lab Results Recommendation: Barrier(s) to disposition, Recommendation based on pending studies, treatments, or consults S.B.A.R. Report Given to: Dr. Higinio FarrellBLauraAFrancis Repor Time: 21:29
[2016-11-22 18:48] LABS: Basophils % 0.6 %; Eosinophils # 0.5 K/mcL (0.0-0.6); Eosinophils % 8.5 %; Hematocrit 25.8 % (37.5-50.1); Hemoglobin 8.3 g/dL (12.9-16.9); Immature Granulocytes % 0.2 % (0-4); Lymphocytes # 1.5 K/mcL (0.6-4.6); Lymphocytes % 23.3 %; Mean Corpuscular HGB Conc 32.2 g/dL (31.6-35.5); Mean Corpuscular Hemoglobin 28.8 pg (28.0-33.3); Mean Corpuscular Volume 89.6 fL (83.0-100.0); Mean Platelet Volume 9.6 fL (9.4-12.4); Monocytes # 0.6 K/mcL (0.0-1.3); Monocytes % 9.7 %; Neutrophils # 3.6 K/mcL (1.6-8.9); Platelet Count 215 K/mcL (140-400); Red Blood Count 2.88 M/mcL (4.19-5.50); Red Cell Distribution Width 13.2 % (11.5-14.5); Segmented Neutrophils % 57.7 %
[2016-11-22 18:53] LABS: INR 1.1; Prothrombin Time 12.4 Seconds (9.4-12.1)
[2016-11-22 18:56] LABS: Activated Partial Thrombo Time 31.5 Seconds (26.0-36.0)
[2016-11-22 19:00] LABS: Calcium 8.7 mg/dL (8.6-10.8); Potassium 5.4 mEq/L (3.5-4.5)
[2016-11-22] MEDS ORDERED: 0.9 % Sodium Chloride 1,000 ML IVC ONE (19:13)
--- NOTE | 2016-11-22 21:14 | Emergency Department Note ---
Disposition Clinical Impression: Slurred speech, Pleural effusion Anemia Qualifiers: Anemia type: unspecified type Qualified Code(s): D64.9 - Anemia, unspecified CKD (chronic kidney disease) Qualifiers: Chronic kidney disease stage: unspecified stage Qualified Code(s): N18.9 - Chronic kidney disease, unspecified Disposition: Admitted As Inpatient Condition: Fair Referrals: Ruel Veloz MD [Primary Care Provider] - Forms: ED Satisfaction Letter General Adult HPI - General Chief complaint: ED Neuro Symptoms/Deficit Stated complaint: neuro symptoms Time Seen by Provider: 11/22/16 17:10 Source: patient, family Mode of arrival: ambulatory Limitations: no limitations - History of Present Illness Pain Scale: 2 - Related Data Home Medications Medication Instructions Recorded Confirmed Atorvastatin [Lipitor] 40 mg PO HS 03/16/15 11/09/16 Cholecalciferol (Vitamin D3) 50,000 unit PO SUWE 03/16/15 11/09/16 [Vitamin D3] Sertraline [Zoloft] 100 mg PO HS 03/16/15 11/09/16 TraMADol [Ultram] 50 mg PO BID PRN 12/26/15 11/09/16 Primidone [Mysoline] 75 mg PO DAILY 03/31/16 11/09/16 Insulin Glargine,Hum.rec.anlog 24 unit SQ HS 05/10/16 11/09/16 [Lantus Solostar] Magnesium Oxide [Mag-Ox] 400 mg PO BID 06/26/16 11/09/16 Melatonin 5 mg PO HS 06/26/16 11/09/16 Acetaminophen [Tylenol] 650 mg PO Q6HR PRN 09/05/16 11/09/16 Fluticasone Propionate Nasal 1 spr NS DAILY PRN 09/05/16 11/09/16 [Flonase] Furosemide [Lasix] 40 mg PO DAILY 09/05/16 11/09/16 Zolpidem [Ambien] 5 mg PO HS PRN 09/05/16 11/09/16 Aspirin 81 mg PO HS 11/09/16 11/09/16 Ferrous Sulfate 650 mg PO DAILY 11/09/16 11/09/16 Promethazine HCl 12.5 mg PO TID PRN 11/09/16 11/09/16 Previous Rx's Medication Instructions Recorded Dicyclomine [Bentyl] 10 mg PO TID #90 capsule 03/30/15 Ascorbic Acid [Vitamin C] 500 mg PO DAILY #30 tablet 04/25/16 Hydralazine HCl 25 mg PO QID #0 06/28/16 Terazosin [Hytrin] 5 mg PO HS #60 capsule 06/28/16 CloNIDine HCl 0.2 mg PO BID #120 tablet 11/13/16 NIFEdipine XL (24 HR) [Procardia 90 mg PO DAILY #90 tab.er.24 11/13/16 XL] Allergies Allergy/AdvReac Type Severity Reaction Status Date / Time metoclopramide [From Reglan] Allergy Intermediate See Verified 11/22/16 17:04 Comments Constitutional: Reports: as per HPI. Denies: fever Eyes: Reports: as per HPI ENT ED: Reports: as per HPI Cardiovascular: Reports: as per HPI. Denies: chest pain Respiratory: Reports: as per HPI. Denies: dyspnea Gastrointestinal: Reports: as per HPI. Denies: abdominal pain, nausea, vomiting Genitourinary: Reports: as per HPI Musculoskeletal: Reports: as per HPI Integumentary: Reports: as per HPI Neurological: Reports: as per HPI, weakness. Denies: paresthesias, confusion Psychiatric: Reports: as per HPI Endocrine: Reports: as per HPI Hematological/Lymphatic: Reports: as per HPI Allergic/Immunologic: Reports: as per HPI Past Medical History - Past Medical History Medical history: Reports: arthritis, CHF, coronary artery disease, DVT, diabetes , hyperlipidemia, hypertension, pulmonary embolus, renal disease, other Surgical history: Reports: cataract, coronary bypass (CABG), vascular surgery ( AVF placement), other Psychiatric history: Reports: depression - Social History Smoking Status: Never smoker Smokeless Tobacco Status: No Alcohol use: Reports: none Drug use: Reports: none Physical Exam - General Limitations: no limitations General appearance: alert, in no apparent distress Course - Reevaluation(s) Reevaluation #1: I saw the patient with the resident, Dr. Eng. Patient presents with this generalized weakness and a little bit of cough. Mental status and neurologic examination are normal. Lab workup shows significant azotemia and a little bit of elevation of his creatinine as well. Patient is too weak to get up and move around so we are going to admit him to the hospital for further evaluation. Time: 21:14 Vital Signs Temperature 98.1 F 11/22/16 16:57 Pulse Rate 59 11/22/16 16:57 Respiratory Rate 14 11/22/16 16:57 Blood Pressure 203/83 11/22/16 16:57 O2 Sat by Pulse Oximetry 95 11/22/16 16:57 Temperature 98.1 F 11/22/16 16:57 Pulse Rate 83 11/22/16 19:57 Respiratory Rate 18 11/22/16 19:57 Blood Pressure 193/98 11/22/16 19:57 O2 Sat by Pulse Oximetry 96 11/22/16 19:57 Oxygen Delivery Oxygen Delivery Nasal Cannula Medical Decision Making - Lab Data Result diagrams: 11/22/16 18:40 11/22/16 18:40 Lab Results 11/22/16 11/22/16 11/22/16 Range/Units 18:40 18:40 18:40 WBC 6.3 (4.3-11.1) K/mcL RBC 2.88 L (4.19-5.50) M/mcL Hgb 8.3 L (12.9-16.9) g/dL Hct 25.8 L (37.5-50.1) % MCV 89.6 (83.0-100.0) fL MCH 28.8 (28.0-33.3) pg MCHC 32.2 (31.6-35.5) g/dL RDW 13.2 (11.5-14.5) % Plt Count 215 (140-400) K/mcL MPV 9.6 (9.4-12.4) fL Immature Gran % 0.2 (0-4) % Seg Neutrophils % 57.7 % Lymphocytes % 23.3 % Monocytes % 9.7 % Eosinophils % 8.5 % Basophils % 0.6 % Neutrophils # 3.6 (1.6-8.9) K/mcL Lymphocytes # 1.5 (0.6-4.6) K/mcL Monocytes # 0.6 (0.0-1.3) K/mcL Eosinophils # 0.5 (0.0-0.6) K/mcL Basophils # 0.0 (0.0-0.2) K/mcL PT 12.4 H (9.4-12.1) Seconds INR 1.1 APTT 31.5 (26.0-36.0) Seconds Sodium 140 (136-145) mEq/L Potassium 5.4 H (3.5-4.5) mEq/L Chloride 110 H (98-109) mEq/L Carbon Dioxide 20 (19-29) mEq/L BUN 99 H (8-26) mg/dL Creatinine 3.82 H (0.72-1.25) mg/dL Est GFR ( Amer) 19 L (> 60) Est GFR (Non-Af Amer) 16 L (> 60) BUN/Creatinine Ratio 26 (6-26) Glucose 139 H (70-99) mg/dL Calculated Osmolality 323 H (280-300) Calcium 8.7 (8.6-10.8) mg/dL Troponin I (0-0.03) ng/mL 11/22/16 Range/Units 18:40 WBC (4.3-11.1) K/mcL RBC (4.19-5.50) M/mcL Hgb (12.9-16.9) g/dL Hct (37.5-50.1) % MCV (83.0-100.0) fL MCH (28.0-33.3) pg MCHC (31.6-35.5) g/dL RDW (11.5-14.5) % Plt Count (140-400) K/mcL MPV (9.4-12.4) fL Immature Gran % (0-4) % Seg Neutrophils % % Lymphocytes % % Monocytes % % Eosinophils % % Basophils % % Neutrophils # (1.6-8.9) K/mcL Lymphocytes # (0.6-4.6) K/mcL Monocytes # (0.0-1.3) K/mcL Eosinophils # (0.0-0.6) K/mcL Basophils # (0.0-0.2) K/mcL PT (9.4-12.1) Seconds INR APTT (26.0-36.0) Seconds Sodium (136-145) mEq/L Potassium (3.5-4.5) mEq/L Chloride (98-109) mEq/L Carbon Dioxide (19-29) mEq/L BUN (8-26) mg/dL Creatinine (0.72-1.25) mg/dL Est GFR ( Amer) (> 60) Est GFR (Non-Af Amer) (> 60) BUN/Creatinine Ratio (6-26) Glucose (70-99) mg/dL Calculated Osmolality (280-300) Calcium (8.6-10.8) mg/dL Troponin I 0.03 (0-0.03) ng/mL Attestation Statement - Attestation Attestation: I, Dr. Sanches, examined this patient [id number] and my medical decision- making was reviewed with Dr. Eng, Resident Physician. I agree with the documented findings, disposition and treatment plan as described except to the extent set forth below. Please see my progress notes for details.
--- NOTE | 2016-11-22 22:43 | Internal Med History&Physical ---
<Tucker Salinas - Last Filed: 11/23/16 01:46> Date of Encounter: 11/22/16 Time of Encounter: 22:43 Assessment and Plan (1) CKD (chronic kidney disease) Current visit: Yes Status: Acute -Patient evaluated last week for similar complaints. Admitted today for generalized weakness, pleural effusions, HTN. -Workup for generalized weakness initiated. -CT head: no acute changes, EKG no changes, CT chest: Mild to moderate Bilateral pleural effusions. ECHO one year ago:55% and atypical wall motion. Colonoscopy 11/03 no bleeding. Thorocentesis on 05/28/16 1.5 L removed. Couldnt find fluid analysis (transudative vs exudative). CXR showed L sided effusion 1 week ago. -Patient asymptomatic from cardiac and respiratory stand point. No need to tap at this time. Unsure if transudative or exudative effusion. Denies Hep B,C or liver pathology. Does have significant cardiac history. Could be from CHF. -Anemia and electrolyte abnormalities most likely from CKD IV. Does have new R wrist AV fistula. Denies previous HD. May consider HD at this time. -HTN medication adjusted from last visit. Unsure if patient is compliant. Currently asymptomatic from HTN standpoint. -Continue home medication. Hydralizine switched from 25mg QID to 50BID to help with compliance. Plan -Consider repeat ECHO to evaluate aseptal wall motion -Hydralizine change to 50BID -Nephrology consult for possible HD -Diabetic diet. -Full code Qualifiers: Chronic kidney disease stage: stage 4 (severe) Qualified Code(s): N18.4 - Chronic kidney disease, stage 4 (severe) (2) Pleural effusion Current visit: Yes Status: Acute (3) Generalized weakness Current visit: Yes Status: Acute (4) Hypertension Current visit: No Status: Acute -Chronic HTN. Meds adjusted last visit. unknown compliance -Currently asymptomatic. 10mg hydralizine in ED did not improve BP -Will continue home medications as the patient is not symptomatic and urgent lowering isnt needed. Qualifiers: Hypertension type: essential hypertension Qualified Code(s): I10 - Essential (primary) hypertension (5) Electrolyte abnormality Current visit: Yes Status: Acute -due to CKD IV -consult nephro. Possible dialysis. (6) Anemia Current visit: Yes Status: Chronic -Hgb 8.3, CKD IV. Transfused 1PRBC on 11/09 -Previously diagnosed iron deficiency anemia. Could be from CKD IV -Colonoscopy on 11/03 showed no active bleeding. Only polyps. Plan -Continue to trend. Transfuse if <7 Qualifiers: Anemia type: other cause Other causes of anemia: chronic disease, kidney Qualified Code(s): N18.9 - Chronic kidney disease, unspecified; D63.1 - Anemia in chronic kidney disease (7) DVT prophylaxis Current visit: No Status: Acute -Will hold in setting of anemia. Internal Medicine - H&P: HPI Chief complaint: Generalized Weakness Admitted From: Emergency Dept Plans for Post Hospital Care: Home History of present illness: Mr. French is a 61 year old male, PMH HTN, anemia, CKD IV, DM, CABAGx2, presents with generalized weakness. He has been feeling weak for >3M. Brought in today because family members thought it was time to have it evaluated because his weakness is getting worse. He was worked up for anemia on 11/09/16. Patient admits to lower abdominal pain and mild headache, which are both chronic. Has long standing constipation. Denies blurry vision, CP, SOB, black tarry stools, hematuria or urinary problems. Admits to parasthesias that are chronic from long standing DM. Is not on home oxygen. Has home health aid and family close by. Is ambulatory and denies FND, confusion. Past Med Surg Social Fam HX - Past Medical History Medical history: arthritis, CHF, coronary artery disease, DVT, diabetes, hyperlipidemia, hypertension, pulmonary embolus, renal disease, other Psychiatric history: depression - Past Surgical History Surgical History: cataract, coronary bypass (CABG), vascular surgery (AVF placement), other - Social History Smoking Status: Never smoker Smokeless Tobacco Status: No Alcohol use: none Drug use: none - Family History Father Family Member Ethnicity: Non- Living Status: Still Living Hx Family Cardiac Disorders: Yes Hx Family Endocrine Disorder: Yes Mother Adopted: No Family Member Ethnicity: Non- Living Status: Still Living Hx Family Cardiac Disorders: Yes (dad, mother) Hx Family Respiratory Disorders: No Hx Family Cancer: Yes (aunt,uncle) Hx Family GI Disorders: Yes Hx Family Endocrine Disorder: No Hx Family Neuromuscular Disorders: No Hx Family Neurologic Disorders: No Hx Family HEENT Disorders: No Hx Family Autoimmune Disorders: No Internal Medicine - H&P: Meds Atorvastatin [Lipitor] 40 mg PO HS 03/16/15 [History] Cholecalciferol (Vitamin D3) [Vitamin D3] 50,000 unit PO SUWE 03/16/15 [History] Sertraline [Zoloft] 100 mg PO HS 03/16/15 [History] Dicyclomine [Bentyl] 10 mg PO TID #90 capsule 03/30/15 [Rx] TraMADol [Ultram] 50 mg PO BID PRN 12/26/15 [History] Primidone [Mysoline] 75 mg PO DAILY 03/31/16 [History] Ascorbic Acid [Vitamin C] 500 mg PO DAILY #30 tablet 04/25/16 [Rx] Insulin Glargine,Hum.rec.anlog [Lantus Solostar] 24 unit SQ HS 05/10/16 [History ] Magnesium Oxide [Mag-Ox] 400 mg PO BID 06/26/16 [History] Melatonin 5 mg PO HS 06/26/16 [History] Hydralazine HCl 25 mg PO QID #0 06/28/16 [Rx] Terazosin [Hytrin] 5 mg PO HS #60 capsule 06/28/16 [Rx] Acetaminophen [Tylenol] 650 mg PO Q6HR PRN 09/05/16 [History] Fluticasone Propionate Nasal [Flonase] 1 spr NS DAILY PRN 09/05/16 [History] Furosemide [Lasix] 40 mg PO DAILY 09/05/16 [History] Zolpidem [Ambien] 5 mg PO HS PRN 09/05/16 [History] Aspirin 81 mg PO HS 11/09/16 [History] Ferrous Sulfate 650 mg PO DAILY 11/09/16 [History] Promethazine HCl 12.5 mg PO TID PRN 11/09/16 [History] CloNIDine HCl 0.2 mg PO BID #120 tablet 11/13/16 [Rx] NIFEdipine XL (24 HR) [Procardia XL] 90 mg PO DAILY #90 tab.er.24 11/13/16 [Rx] Allergies metoclopramide [From Reglan] Allergy (Intermediate, Verified 11/22/16 17:04) See Comments TREMORS All Systems PM: A 10-system review of systems was performed and is negative for pertinent findings except as documented above in the HPI. - Constitutional Constitutional: as per HPI - Cardiovascular Cardiovascular ROS IM: no chest pain, no diaphoresis, no dyspnea, no lightheadedness, no palpitations, no syncope - Respiratory Respiratory: no cough, no dyspnea, no wheezing, no excessive phlegm production - Gastrointestinal Gastrointestinal: as per HPI - Genitourinary Genitourinary ROS male: as per HPI - Neurological Neurological ROS: no confusion, no convulsions, no focal weakness - Constitutional Vitals: Temp Pulse Resp BP Pulse Ox 98.5 F 79 18 212/83 96 11/22/16 22:27 11/22/16 22:27 11/22/16 22:27 11/22/16 22:27 11/22/16 22:27 General appearance: Present: A&O X 3, no acute distress, answers questions appropriately - Head Head exam: Present: atraumatic, normocephalic - Eye Eye exam: Present: PERRL, conjuntiva pink, sclera anicteric Pupils: Present: miosis, PERRL - Neck Neck exam general surgery: Present: supple, trachea midline. Absent: lymphadenopathy - Respiratory Respiratory exam: Present: rhonchi (very mild ). Absent: accessory muscle use, rales, wheezes - Cardiovascular Cardiovascular exam: Present: RRR, +S1, +S2, systolic murmur. Absent: diastolic murmur, gallop, rubs - GI/Abdominal GI/Abdominal exam: Present: normal bowel sounds, soft, tenderness (lower abdomen ), no peritoneal signs. Absent: distended - Neurological Exam Neurological exam: Present: alert, CN II-XII intact, oriented X3, no focal deficits, facial droop (L sided at rest. Smile is equal. ). Absent: motor sensory deficit, pronater drift, speech deficit - Expanded Neurological Exam Patient oriented to: Present: person, place, time Neuro motor strength exam: LUE: 5, RUE: 5, LLE: 5, RLE: 5 Coma Scale Eye Opening: Spontaneous Coma Scale Motor Response: Obeys Commands Coma Scale Verbal Response: Oriented Coma Scale Total: 15 - Psychiatric Psychiatric exam: Present: normal affect, normal mood Internal Med - H&P Results - Labs CBC & Chem 7: 11/23/16 01:04 11/23/16 01:04 <Brandt Dee - Last Filed: 11/23/16 04:50> Date of Encounter: 11/23/16 Internal Medicine - H&P: HPI History of present illness: Mr. French is a 61 year old male All Systems PM: A 10-system review of systems was performed and is negative for pertinent findings except as documented above in the HPI. - Constitutional Vitals: Temp Pulse Resp BP Pulse Ox 98.5 F 79 18 212/83 96 11/22/16 23:35 11/22/16 23:35 11/22/16 23:35 11/22/16 23:35 11/22/16 23:35 Internal Med - H&P Results - Labs CBC & Chem 7: 11/23/16 01:04 11/23/16 01:04 Labs: Short CBC 11/23/16 Range/Units 01:04 WBC 7.0 (4.3-11.1) K/mcL Hgb 8.3 L (12.9-16.9) g/dL Hct 25.8 L (37.5-50.1) % Plt Count 204 (140-400) K/mcL Neutrophils # 4.4 (1.6-8.9) K/mcL BMP 11/23/16 01:04 Sodium 140 Potassium 4.7 H Chloride 112 H Carbon Dioxide 20 BUN 96 H Creatinine 3.65 H Glucose 180 H Calcium 8.4 L - Attending Attestation I examined this patient and my medical decision-making was reviewed with Dr. Salinas. I agree with the documented findings, disposition and treatment plan as described except to the extent set forth below. 61 yo CM who was recently discharged returns to ER due to generalized weakness and found to have elevated blood pressure. Pt. reports he does not check his BP regularly. He reports forgetting to take some of his medications. He is being admitted for the same. Exam reveals patient lying in bed in no acute distress. CTAB on pulmonary exam. S1 & S2 present on cardiac auscultation. Labs reviewed. CXR personally reviewed. Pleural effusion stable. 1. HTN urgency - Admit to hospital. Resume home meds. Adjust medications for ease of use and administration less frequently to improve compliance. Pt. high risk due to risk of flash pulmonary edema. Nephrology consult. 2. DM-2 on home insulin complicated by CKD-4 - Resume home meds. SSI. Renal consult. Renal function at baseline. Avoid nephrotoxic medications. 3. Anemia 4. CAD LUKE Guzman
[2016-11-22] MEDS ORDERED: Naloxone 0.4 MG/ML INJ IVP PRN (22:44)
[2016-11-22] MEDS ORDERED: hydrALAZINE 25 MG TABLET PO SCH (23:45)
[2016-11-22] MEDS ORDERED: Acetaminophen 325 MG TABLET PO PRN (23:53)
[2016-11-22] MEDS ORDERED: Fluticasone Propionate Nasal 50 MCG/SPRAY BOTTLE NS PRN (23:53)
[2016-11-23] MEDS: cloNIDine HCl 0.1 MG TABLET PO SCH ×4 (00:34→20:43)
[2016-11-23] MEDS: Melatonin 3 MG TABLET PO SCH ×2 (00:34→20:43)
[2016-11-23 01:10] LABS: Basophils % 0.4 %; Eosinophils # 0.5 K/mcL (0.0-0.6); Hematocrit 25.8 % (37.5-50.1); Hemoglobin 8.3 g/dL (12.9-16.9); Immature Granulocytes % 0.4 % (0-4); Lymphocytes # 1.5 K/mcL (0.6-4.6); Lymphocytes % 20.8 %; Mean Corpuscular HGB Conc 32.2 g/dL (31.6-35.5); Mean Corpuscular Hemoglobin 28.3 pg (28.0-33.3); Mean Corpuscular Volume 88.1 fL (83.0-100.0); Mean Platelet Volume 8.7 fL (9.4-12.4); Monocytes # 0.6 K/mcL (0.0-1.3); Monocytes % 8.6 %; Neutrophils # 4.4 K/mcL (1.6-8.9); Platelet Count 204 K/mcL (140-400); Red Blood Count 2.93 M/mcL (4.19-5.50); Red Cell Distribution Width 13.2 % (11.5-14.5); Segmented Neutrophils % 62.8 %
[2016-11-23 01:22] LABS: Calcium 8.4 mg/dL (8.6-10.8); Potassium 4.7 mEq/L (3.5-4.5)
[2016-11-23] MEDS ORDERED: Dextrose Gel 15 GM PO PRN ×4 (02:25→09:19)
[2016-11-23] MEDS ORDERED: *HR* Dextrose 50 % in Water (Syg) 50 ML SYRINGE IVP PRN ×2 (02:25→09:19)
[2016-11-23] MEDS ORDERED: D5% in Water 1,000 ML IVC PRN ×2 (02:25→09:19)
[2016-11-23] MEDS ORDERED: Acetaminophen 325 MG TABLET PO PRN (04:20)
[2016-11-23] MEDS: *HR* HYDROcodone/Acet 5/325 mg TABLET PO PRN (04:52)
[2016-11-23] MEDS ORDERED: *HR* Labetalol 20 MG/4 ML SYRINGE IVP ONE (05:22)
[2016-11-23] MEDS: Ondansetron 4 MG/2 ML VIAL IVP PRN (08:07)
[2016-11-23] MEDS: Magnesium Oxide 400 MG TABLET PO SCH ×3 (08:10→20:43)
[2016-11-23] MEDS: Primidone 50 MG TABLET PO SCH ×2 (08:10→11:10)
[2016-11-23] MEDS: NIFEdipine XL (24 HR) 30 MG TAB.ER.24 PO SCH ×2 (08:10→11:10)
[2016-11-23] MEDS: hydrALAZINE 25 MG TABLET PO SCH ×3 (08:11→20:43)
[2016-11-23] MEDS: Ascorbic Acid 500 MG TABLET PO SCH ×2 (08:11→11:40)
--- NOTE | 2016-11-23 09:12 | Internal Med Progress Note ---
Date of Encounter: 11/23/16 Time of Encounter: 08:53 - Assessment and plan (1) Hypertension Current Visit: No Status: Chronic Assessment and plan: Questionable compliance Will crush medications and give them in apple sauce to insure compliance while he is hospitalized closely monitor BP will adjust medications as needed. Qualifiers: Hypertension type: essential hypertension Qualified Code(s): I10 - Essential (primary) hypertension (2) Anemia in chronic kidney disease (CKD) Current Visit: No Status: Chronic Assessment and plan: H&H low but acceptable no acute bleeding reported at this time continue to monitor H&H and transfuse as needed Noted to also have Iron def anemia will continue iron supplementation (3) CAD (coronary artery disease) Current Visit: No Status: Chronic Assessment and plan: No signs of angina present at this time continue home medications Qualifiers: Coronary Disease-Associated Artery/Lesion type: [place] artery [place] vs. transplanted heart: [place] heart Associated angina: without angina Qualified Code(s): I25.10 - Atherosclerotic heart disease of [place] coronary artery without angina pectoris (4) CKD (chronic kidney disease) stage 4, GFR 15-29 ml/min Current Visit: No Status: Chronic Assessment and plan: Renal function at baseline will continue to monitor (5) DM type 2 (diabetes mellitus, type 2) Current Visit: No Status: Chronic Assessment and plan: BG within acceptable range continue home dose of Levemir monitor FS and BG SS insulin as needed 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 group home insulin use: with group home use Chronic kidney disease stage: stage 4 (severe) Qualified Code(s): E11.22 - Type 2 diabetes mellitus with diabetic chronic kidney disease; N18.4 - Chronic kidney disease, stage 4 (severe); 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 Sitting in chair. Pt is AAO x 3 however is reported to have assistance with his medications at home. During my evaluation he denied any discomfort, however he induced vomiting as he was asked to take his PO medications and shortly after he was seen eating his breakfast without any difficulties. 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 - Constitutional Vitals: Temp Pulse Resp BP Pulse Ox 98.1 F 62 18 196/86 96 11/23/16 06:54 11/23/16 06:54 11/23/16 06:54 11/23/16 06:54 11/23/16 06:54 General appearance: Present: A&O X 3, no acute distress, obese, answers questions appropriately - Head Head exam: Present: atraumatic, normocephalic - Eye Eye exam: Present: normal appearance, conjuntiva pink, sclera anicteric - Respiratory Respiratory exam: Present: CTAB. Absent: respiratory distress, wheezes - Cardiovascular Cardiovascular exam: Present: RRR, +S1, +S2. Absent: diastolic murmur, gallop, rubs, systolic murmur - GI/Abdominal GI/Abdominal exam: Present: normal bowel sounds, soft, no peritoneal signs. Absent: distended, tenderness - Extremities Exam Extremities exam: Present: warm, radial pulses palpable and symetrical. Absent : calf tenderness - Neurological Exam Neurological exam: Present: alert, oriented X3 - Psychiatric Psychiatric exam: Present: normal affect, normal mood Internal Medicine: Result - Labs CBC & Chem 7: 11/23/16 01:04 11/23/16 01:04 Labs: Short CBC 11/23/16 Range/Units 01:04 WBC 7.0 (4.3-11.1) K/mcL Hgb 8.3 L (12.9-16.9) g/dL Hct 25.8 L (37.5-50.1) % Plt Count 204 (140-400) K/mcL Neutrophils # 4.4 (1.6-8.9) K/mcL BMP 11/23/16 01:04 Sodium 140 Potassium 4.7 H Chloride 112 H Carbon Dioxide 20 BUN 96 H Creatinine 3.65 H Glucose 180 H Calcium 8.4 L - ABG Interpretation ABG results: PT/INR, D-dimer PT 12.4 Seconds (9.4-12.1) H 11/22/16 18:40 Consult Discharge Plan - Plan Referrals: Ruel Veloz MD [Primary Care Provider] -
--- NOTE | 2016-11-23 09:45 | Electrocardiograph Report ---
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
[2016-11-23 10:06] LABS: Hematocrit 26.6 % (37.5-50.1); Hemoglobin 8.6 g/dL (12.9-16.9)
[2016-11-23] MEDS: Insulin LISPRO 300 UNITS/3 ML VIAL SQ SCH ×3 (11:52→20:44)
[2016-11-23 16:54] LABS: Hematocrit 24.6 % (37.5-50.1)
[2016-11-23] MEDS: *HR* Heparin 5,000 UNIT/ML VIAL SQ SCH (16:55)
[2016-11-23] MEDS: Aspirin 81 MG TAB.CHEW PO SCH (20:42)
[2016-11-23] MEDS: Insulin DETEMIR 100 UNIT/ML X5UNITS SQ SCH (20:44)
[2016-11-24 05:00] LABS: Basophils % 0.2 %; Eosinophils # 0.4 K/mcL (0.0-0.6); Hematocrit 22.2 % (37.5-50.1); Hemoglobin 7.1 g/dL (12.9-16.9); Immature Granulocytes % 0.4 % (0-4); Lymphocytes # 1.8 K/mcL (0.6-4.6); Lymphocytes % 32.3 %; Mean Corpuscular Hemoglobin 28.7 pg (28.0-33.3); Mean Corpuscular Volume 89.9 fL (83.0-100.0); Monocytes # 0.6 K/mcL (0.0-1.3); Monocytes % 10.4 %; Neutrophils # 2.7 K/mcL (1.6-8.9); Platelet Count 185 K/mcL (140-400); Red Blood Count 2.47 M/mcL (4.19-5.50); Red Cell Distribution Width 13.3 % (11.5-14.5); Segmented Neutrophils % 48.7 %
[2016-11-24] MEDS: *HR* Heparin 5,000 UNIT/ML VIAL SQ SCH ×2 (05:18→17:24)
[2016-11-24 05:19] LABS: Magnesium 1.9 mg/dL (1.6-2.6)
[2016-11-24 05:24] LABS: Calcium 8.3 mg/dL (8.6-10.8); Potassium 5.4 mEq/L (3.5-4.5)
[2016-11-24 07:51] LABS: Basophils % 0.6 %; Eosinophils # 0.5 K/mcL (0.0-0.6); Eosinophils % 9.5 %; Hematocrit 24.1 % (37.5-50.1); Hemoglobin 7.6 g/dL (12.9-16.9); Immature Granulocytes % 0.2 % (0-4); Lymphocytes # 1.7 K/mcL (0.6-4.6); Lymphocytes % 31.8 %; Mean Corpuscular HGB Conc 31.5 g/dL (31.6-35.5); Mean Corpuscular Hemoglobin 28.7 pg (28.0-33.3); Mean Corpuscular Volume 90.9 fL (83.0-100.0); Mean Platelet Volume 9.4 fL (9.4-12.4); Monocytes # 0.6 K/mcL (0.0-1.3); Monocytes % 10.6 %; Neutrophils # 2.5 K/mcL (1.6-8.9); Platelet Count 195 K/mcL (140-400); Red Blood Count 2.65 M/mcL (4.19-5.50); Red Cell Distribution Width 13.4 % (11.5-14.5); Segmented Neutrophils % 47.3 %
[2016-11-24] MEDS: Insulin LISPRO 300 UNITS/3 ML VIAL SQ SCH ×4 (08:04→21:04)
[2016-11-24] MEDS: NIFEdipine XL (24 HR) 30 MG TAB.ER.24 PO SCH (08:10)
[2016-11-24] MEDS: Magnesium Oxide 400 MG TABLET PO SCH ×2 (08:10→21:03)
[2016-11-24] MEDS: Ascorbic Acid 500 MG TABLET PO SCH (08:11)
[2016-11-24] MEDS: hydrALAZINE 25 MG TABLET PO SCH ×2 (08:12→21:03)
[2016-11-24] MEDS: cloNIDine HCl 0.1 MG TABLET PO SCH ×2 (08:12→21:03)
[2016-11-24] MEDS: Primidone 50 MG TABLET PO SCH (08:12)
[2016-11-24] MEDS: Ondansetron 4 MG/2 ML VIAL IVP PRN ×2 (08:40→21:21)
--- NOTE | 2016-11-24 12:13 | Internal Med Progress Note ---
Date of Encounter: 11/24/16 Time of Encounter: 12:07 - Assessment and plan (1) Hypertension Current Visit: No Status: Chronic Assessment and plan: Questionable compliance BP within acceptable range at this time Continue home medications closely monitor BP will adjust medications as needed. Qualifiers: Hypertension type: essential hypertension Qualified Code(s): I10 - Essential (primary) hypertension (2) Anemia in chronic kidney disease (CKD) Current Visit: No Status: Chronic Assessment and plan: Drop in H&H noted Clinically asymptomatic Will transfuse if Hgb<7 no acute bleeding reported at this time continue to monitor H&H Noted to also have Iron def anemia will continue iron supplementation (3) CAD (coronary artery disease) Current Visit: No Status: Chronic Assessment and plan: No signs of angina present at this time continue home medications Qualifiers: Coronary Disease-Associated Artery/Lesion type: [place] artery [place] vs. transplanted heart: [place] heart Associated angina: without angina Qualified Code(s): I25.10 - Atherosclerotic heart disease of [place] coronary artery without angina pectoris (4) CKD (chronic kidney disease) stage 4, GFR 15-29 ml/min Current Visit: No Status: Chronic Assessment and plan: Worsening of renal function noted Consultation with Dr. Niurka wang (5) DM type 2 (diabetes mellitus, type 2) Current Visit: No Status: Chronic Assessment and plan: BG within acceptable range continue home dose of Levemir monitor FS and BG SS insulin as needed 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 terminal clerk insulin use: with terminal clerk use Chronic kidney disease stage: stage 4 (severe) Qualified Code(s): E11.22 - Type 2 diabetes mellitus with diabetic chronic kidney disease; N18.4 - Chronic kidney disease, stage 4 (severe); 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 Denies any discomfort at this time. Reports of feeling better this morning. I had a detailed discussion with patient's family (his mother) who states that the patient has been compliant with his home medications and has been closely followed nephrology as he may need HD in the near future. Pt is continued on his home medications while hospitalized and is noted to have BP within acceptable range, therefore patient's compliance remains questionable. - Constitutional Vitals: Temp Pulse Resp BP Pulse Ox 97.9 F 65 18 134/67 91 11/24/16 10:44 11/24/16 10:44 11/24/16 10:44 11/24/16 10:44 11/24/16 10:44 General appearance: Present: A&O X 3, no acute distress, obese, answers questions appropriately - Head Head exam: Present: atraumatic, normocephalic - Eye Eye exam: Present: normal appearance, conjuntiva pink, sclera anicteric - Respiratory Respiratory exam: Present: CTAB. Absent: accessory muscle use, rales, rhonchi, wheezes - Cardiovascular Cardiovascular exam: Present: RRR, +S1, +S2. Absent: diastolic murmur, gallop, rubs, systolic murmur - GI/Abdominal GI/Abdominal exam: Present: normal bowel sounds, soft, no peritoneal signs. Absent: distended, tenderness - Extremities Exam Extremities exam: Present: pedal edema (trace pedal edema), warm, radial pulses palpable and symetrical. Absent: calf tenderness - Neurological Exam Neurological exam: Present: alert, oriented X3 - Psychiatric Psychiatric exam: Present: normal affect, normal mood Internal Medicine: Result - Labs CBC & Chem 7: 11/24/16 07:45 11/24/16 03:49 Labs: Short CBC 11/23/16 11/24/16 11/24/16 Range/Units 16:46 03:49 07:45 WBC 5.5 5.3 (4.3-11.1) K/mcL Hgb 8.0 L 7.1 L 7.6 L (12.9-16.9) g/dL Hct 24.6 L 22.2 L 24.1 L (37.5-50.1) % Plt Count 185 195 (140-400) K/mcL Neutrophils # 2.7 2.5 (1.6-8.9) K/mcL BMP 11/24/16 03:49 Sodium 143 Potassium 5.4 H Chloride 114 H Carbon Dioxide 21 BUN 100 H Creatinine 4.19 H Glucose 122 H Calcium 8.3 L - ABG Interpretation ABG results: PT/INR, D-dimer PT 12.4 Seconds (9.4-12.1) H 11/22/16 18:40 - Impressions Impressions Chest X-Ray 11/24/16 07:35 IMPRESSION: Left lower lobe airspace disease and small bilateral pleural effusions. Aeration in the left base is slightly improved compared to prior study. D/ / Delma Zamarripa MD / Delma Zamarripa MD Interpreting Provider: Delma Zamarripa MD Consult Discharge Plan - Plan Referrals: Ruel Veloz MD [Primary Care Provider] - 12/02/16 2:00 pm (Pleaser follow up as schedule...)
--- NOTE | 2016-11-24 13:47 | Nephrology Consult Note ---
Date of Encounter: 11/24/16 Time of Encounter: 12:30 Assessment and Plan (1) GRACIELA (acute kidney injury) Status: Acute Worsening renal function likely pre-renal vs progressive CKD in the setting of hypertensive urgency Elevated BUN seems to suggest pre-renal Agree with hloding diuretics No acute indication for WARDROBE ATTENDANT just yet Will check urine for sodium, creatinine and eosinophils. Will check CPK, uric acid level Will check urine for protein Encouraged adequate fluid intake Encouraged avoidaince of nephrotoxins if possible (2) Anemia Status: Acute Hgb noted low around ~7.0, will add aranesp Qualifiers: Anemia type: unspecified type Qualified Code(s): D64.9 - Anemia, unspecified (3) Hyperkalemia Status: Acute Potassium noted elevated at 5.4 due to worsening renal function. No kayexalate for now. Renal diet advised. (4) CKD (chronic kidney disease) stage 4, GFR 15-29 ml/min Status: Chronic GFR at baseline has been from 17-20 since july this year (5) Accelerated hypertension Status: Acute Continue current regimen and adjust hydralazine dose as needed History of Present Illness - Reason for Consult Consult date: 11/24/16 Acute Kidney Injury, Chronic Kidney Disease Requesting physician: Tucker Salinas - History of Present Illness 61 y o male with PMH of HTN, DM, CABG x2, anemia and stage 4 CKD (follows outpatient with Dr Velasquez)admitted 2 days prior with generalized weakness after recent hospital stay for anemia workup. He is undergoing treatment for hypertensive urgency. Renal initially consulted and then cancelled the first full day of admission but consult finally put in the next day for worsening SCr along with BUN despite diuretics being held. patient is not the best historian. Most of history obtain from records and discussions with his aunts who take care of him. He reports decreased po intake. No N/V/D. No recent nSAIDs use. Past Med Surg Social Fam HX - Past Medical History Medical history: arthritis, CHF, coronary artery disease, DVT, diabetes, hyperlipidemia, hypertension, pulmonary embolus, renal disease, other Psychiatric history: depression - Past Surgical History Surgical History: cataract, coronary bypass (CABG), vascular surgery (AVF placement), other - Social History Smoking Status: Never smoker Smokeless Tobacco Status: No Alcohol use: none Drug use: none - Family History Father Family Member Ethnicity: Non- Living Status: Still Living Hx Family Cardiac Disorders: Yes Hx Family Endocrine Disorder: Yes Mother Adopted: No Family Member Ethnicity: Non- Living Status: Still Living Hx Family Cardiac Disorders: Yes (dad, mother) Hx Family Respiratory Disorders: No Hx Family Cancer: Yes (aunt,uncle) Hx Family GI Disorders: Yes Hx Family Endocrine Disorder: No Hx Family Neuromuscular Disorders: No Hx Family Neurologic Disorders: No Hx Family HEENT Disorders: No Hx Family Autoimmune Disorders: No Medications and Allergies Atorvastatin [Lipitor] 40 mg PO HS 03/16/15 [History] Cholecalciferol (Vitamin D3) [Vitamin D3] 50,000 unit PO SUWE 03/16/15 [History] Sertraline [Zoloft] 100 mg PO HS 03/16/15 [History] Dicyclomine [Bentyl] 10 mg PO TID #90 capsule 03/30/15 [Rx] Primidone [Mysoline] 75 mg PO DAILY 03/31/16 [History] Ascorbic Acid [Vitamin C] 500 mg PO DAILY #30 tablet 04/25/16 [Rx] Terazosin [Hytrin] 5 mg PO HS #60 capsule 06/28/16 [Rx] Acetaminophen [Tylenol] 650 mg PO Q6HR PRN 09/05/16 [History] Fluticasone Propionate Nasal [Flonase] 1 spr NS DAILY PRN 09/05/16 [History] Zolpidem [Ambien] 5 mg PO HS PRN 09/05/16 [History] Aspirin 81 mg PO HS 11/09/16 [History] Ferrous Sulfate 650 mg PO DAILY 11/09/16 [History] Promethazine HCl 12.5 mg PO TID PRN 11/09/16 [History] NIFEdipine XL (24 HR) [Procardia XL] 90 mg PO DAILY #30 tab.er.24 12/03/16 [Rx] cloNIDine HCl [CloNIDine HCl] 0.3 mg PO TID 30 Days 12/03/16 [Rx] hydrALAZINE [HydrALAZINE] 100 mg PO TID 30 Days 12/03/16 [Rx] Allergies metoclopramide [From Reglan] Allergy (Intermediate, Verified 11/22/16 17:04) See Comments TREMORS Review of Systems All Systems: reviewed and no additional remarkable complaints except as stated ( 10 systems reviewed) Exam - Vital Signs Vital signs: Initial Vital Signs Temp Pulse Resp BP Pulse Ox 98.1 F 59 14 203/83 95 11/22/16 16:57 11/22/16 16:57 11/22/16 16:57 11/22/16 16:57 11/22/16 16:57 Vital Signs - Last 8 Hours Temp Pulse Resp BP Pulse Ox 11/24/16 13:38 97.7 F 53 18 100/49 94 11/24/16 10:44 97.9 F 65 18 134/67 91 11/24/16 07:29 98.0 F 59 18 179/78 97 Intake and Output 11/23/16 11/24/16 11/24/16 23:59 07:59 15:59 Intake Total 400 / 400 300 / 300 480 / 480 Output Total 500 / 500 450 / 450 Balance -100 / -100 300 / 300 30 / 30 Intake: Oral 400 / 400 300 / 300 480 / 480 Output: Urine 500 / 500 450 / 450 Other: Meal Lunch Percent of Meal Consumed 30% Weight 100.2 kg Blood Glucose* 179 101 247 Patient Weight 11/24/16 23:59 Weight 100.2 kg - General Appearance General appearance: well-developed, well-nourished EENT: ATNC, mucous membranes dry Neck: no JVD, supple Respiratory: clear (ant bilat) Cardiology: edema (trace LE bilat), regular rate, regular rhythm, normal S1, normal S2 - Dialysis Access Dialysis Vascular Access: Arteriovenous Fistula thrill: Yes bruit: Yes Gastrointestinal: no tenderness, no guarding Integumentary: no rash, warm and dry Neurologic: no focal deficit Musculoskeletal: no deformities Psychiatric: mood/affect appropriate Results - Lab Results 12/03/16 04:26 12/03/16 04:26 Most recent lab results Calcium 8.3 mg/dL (8.6-10.8) L 11/24/16 03:49 Phosphorus 5.0 mg/dL (2.3-4.7) H 11/24/16 03:49 Magnesium 1.9 mg/dL (1.6-2.6) 11/24/16 03:49 Consult Discharge Plan - Plan Additional Instructions: PCP. Surgery follow up for gallstones. Nephrology follow up. Continuity of HD Referrals: Ruel Veloz MD [Primary Care Provider] - 12/09/16 2:00 pm (Pleaser follow up as schedule...) Prescriptions: cloNIDine HCl [CloNIDine HCl] 0.3 mg PO TID 30 Days hydrALAZINE [HydrALAZINE] 100 mg PO TID 30 Days NIFEdipine XL (24 HR) [Procardia XL] 90 mg PO DAILY #30 tab.er.24
[2016-11-24 14:31] LABS: Uric Acid 8.3 mg/dL (3.5-7.2)
[2016-11-24] MEDS: Aspirin 81 MG TAB.CHEW PO SCH (21:03)
[2016-11-24] MEDS: Melatonin 3 MG TABLET PO SCH (21:03)
[2016-11-24] MEDS: Insulin DETEMIR 100 UNIT/ML X5UNITS SQ SCH (21:04)
[2016-11-25] MEDS: *HR* Heparin 5,000 UNIT/ML VIAL SQ SCH ×2 (05:36→16:51)
[2016-11-25] MEDS: cloNIDine HCl 0.1 MG TABLET PO SCH ×2 (05:36→21:51)
[2016-11-25 06:34] LABS: Basophils % 0.4 %; Eosinophils # 0.6 K/mcL (0.0-0.6); Eosinophils % 10.4 %; Hematocrit 24.1 % (37.5-50.1); Hemoglobin 7.7 g/dL (12.9-16.9); Immature Granulocytes % 0.2 % (0-4); Lymphocytes # 1.4 K/mcL (0.6-4.6); Lymphocytes % 27.2 %; Mean Corpuscular Hemoglobin 29.1 pg (28.0-33.3); Mean Corpuscular Volume 90.9 fL (83.0-100.0); Monocytes # 0.5 K/mcL (0.0-1.3); Monocytes % 9.4 %; Neutrophils # 2.8 K/mcL (1.6-8.9); Platelet Count 199 K/mcL (140-400); Red Blood Count 2.65 M/mcL (4.19-5.50); Red Cell Distribution Width 13.4 % (11.5-14.5); Segmented Neutrophils % 52.4 %
[2016-11-25 06:38] LABS: Calcium 8.5 mg/dL (8.6-10.8); Phosphorous 5.3 mg/dL (2.3-4.7); Potassium 5.2 mEq/L (3.5-4.5)
[2016-11-25] MEDS: Insulin LISPRO 300 UNITS/3 ML VIAL SQ SCH ×4 (09:30→22:07)
[2016-11-25] MEDS: NIFEdipine XL (24 HR) 30 MG TAB.ER.24 PO SCH (09:30)
[2016-11-25] MEDS: Ascorbic Acid 500 MG TABLET PO SCH (09:30)
[2016-11-25] MEDS: Magnesium Oxide 400 MG TABLET PO SCH ×2 (09:30→21:51)
[2016-11-25] MEDS: Primidone 50 MG TABLET PO SCH (09:30)
[2016-11-25] MEDS: hydrALAZINE 25 MG TABLET PO SCH ×2 (09:30→21:51)
[2016-11-25 10:41] LABS: Bilirubin,Urine Negative (Negative); Blood,Urine Negative (Negative); Clarity,Urine Clear (Clear); Color,Urine Yellow (Yellow); Glucose,Urine (UA) Normal (Normal); Ketones,Urine Negative (Negative); Leukocyte Esterase,Urine Negative (Negative); Nitrite,Urine Negative (Negative); Protein,Urine >=300 mg/dL (Neg-Trace); Specific Gravity,Urine 1.016 (1.010-1.025); Urobilinogen,Urine Normal (Normal)
[2016-11-25 10:43] LABS: Bacteria,Urine None Seen per hpf (None-Few); Hyaline Casts,Urine None Seen per lpf (None-Few); RBC,Urine 0-3 per hpf (0-3); Squamous Epithelial Cell,Urine Moderate per lpf (None-Few); WBC,Urine 0-3 per hpf (0-3)
--- NOTE | 2016-11-25 10:48 | Nephrology Progress Note ---
Date of Encounter: 11/25/16 Time of Encounter: 10:45 - Assessment and Plan (1) GRACIELA (acute kidney injury) Current Visit: Yes Status: Acute SCr slightly worse at 4.24, GFR 14 but might b reaching a plateau. No acute indication for PHARMACY ASSISTANT at this time however will monitor daily US of kidney unremarkable Urine studies yet to be done as ordered! Encouraged adequate po fluids UOP acceptable at 910cc in the past 24hrs CPK WNL, uric acid slightly elevated (2) Anemia Current Visit: Yes Status: Acute HGb low but stable at 7.7 with iron studies done 11/13 WNL along with vitamin B12 and folate Agree with transfusion of a unit pRBCs today which might help renal function Will also dose with aranesp today as well Qualifiers: Anemia type: unspecified type Qualified Code(s): D64.9 - Anemia, unspecified (3) Accelerated hypertension Current Visit: No Status: Acute BP elevated again from dropping yesterday to 100s systolic. Unclear if any antiBP meds were held. Will discuss with nurse Will consider increasing hydralazine to 75mg bid if BP persists (4) CKD (chronic kidney disease) stage 4, GFR 15-29 ml/min Current Visit: No Status: Chronic (5) Hyperkalemia Current Visit: Yes Status: Acute Baseline GFR this year between 17-20. Follows with Dr Velasquez on outpatient Subjective Interval history: Pt seen and examined. Objective - Vital Signs Vital signs: Vital Signs Temp Pulse Resp BP Pulse Ox 11/25/16 04:00 98.4 F 62 16 177/78 92 11/24/16 23:44 98.0 F 52 16 163/73 97 11/24/16 20:20 98.4 F 68 16 188/79 92 11/24/16 16:19 95 11/24/16 16:11 97.8 F 59 16 152/67 95 11/24/16 13:38 97.7 F 53 18 100/49 94 Intake and Output 11/24/16 11/25/16 11/25/16 23:59 07:59 15:59 Intake Total 240 / 240 300 / 300 Output Total 460 / 460 350 / 350 Balance -220 / -220 -50 / -50 Intake: Oral 240 / 240 300 / 300 Output: Urine 460 / 460 350 / 350 Other: Meal diet jello Weight 100.2 kg 100.3 kg Blood Glucose* 107 Patient Weight 11/25/16 23:59 Weight 100.3 kg - Lab 11/25/16 05:43 11/25/16 05:43 Most recent lab results Calcium 8.5 mg/dL (8.6-10.8) L 11/25/16 05:43 Phosphorus 5.3 mg/dL (2.3-4.7) H 11/25/16 05:43 Magnesium 2.0 mg/dL (1.6-2.6) 11/25/16 05:43 Consult Discharge Plan - Plan Referrals: Ruel Veloz MD [Primary Care Provider] - 12/02/16 2:00 pm (Pleaser follow up as schedule...)
[2016-11-25 11:03] LABS: Protein/Creatinine Ratio,Urine 2.9 mg/mg (0-0.20)
[2016-11-25] MEDS: Darbepoetin 100 MCG/0.5 ML SYRINGE SQ SCH (12:16)
[2016-11-25] MEDS ORDERED: 0.9 % Sodium Chloride 250 ML ONE (14:35)
--- NOTE | 2016-11-25 14:36 | Internal Med Progress Note ---
Date of Encounter: 11/25/16 Time of Encounter: 11:00 - Assessment and plan (1) GRACIELA (acute kidney injury) Current Visit: Yes Status: Acute Assessment and plan: D/w rand sewer, will continue monitoring his kidney function tests, will need a transfusion of 1 unit of PRBC today, we expect to see an improvement on his renal function and perfusion. The patient will also get aranesp. His hemoglobin is 7.7, there is no evidence of active bleeding, however I do believe that a blood transfusion will help and is indicated at this time. Ultrasound of the kidneys obtained, results unremarkable. Continue following recommendations by nephrology. Avoid nephrotoxic agents. Optimize blood pressure control. (2) Anemia Current Visit: Yes Status: Acute Assessment and plan: likely due to chronic disease. Elevated ferritin levels. Qualifiers: Anemia type: unspecified type Qualified Code(s): D64.9 - Anemia, unspecified (3) CKD (chronic kidney disease) Current Visit: Yes Status: Acute Qualifiers: Chronic kidney disease stage: stage 4 (severe) Qualified Code(s): N18.4 - Chronic kidney disease, stage 4 (severe) (4) CAD (coronary artery disease) Current Visit: No Status: Chronic Assessment and plan: No signs of angina present at this time continue home medications Qualifiers: Coronary Disease-Associated Artery/Lesion type: [place] artery [place] vs. transplanted heart: [place] heart Associated angina: without angina Qualified Code(s): I25.10 - Atherosclerotic heart disease of [place] coronary artery without angina pectoris (5) Hypertension Current Visit: No Status: Chronic Assessment and plan: Questionable compliance BP within acceptable range at this time Continue home medications closely monitor BP will adjust medications as needed. Qualifiers: Hypertension type: essential hypertension Qualified Code(s): I10 - Essential (primary) hypertension - Subjective Interval history: 1st encounter with the patient. His aunts were present during this encounter. Patient feels weak, denies fever. Still short of breath. - Constitutional Vitals: Temp Pulse Resp BP Pulse Ox 98.4 F 62 16 177/78 92 11/25/16 04:00 11/25/16 04:00 11/25/16 04:00 11/25/16 04:00 11/25/16 04:00 General appearance: Present: A&O X 3, no acute distress, obese, answers questions appropriately - Head Head exam: Present: atraumatic, normocephalic - Eye Eye exam: Present: PERRL, conjuntiva pink, sclera anicteric Pupils: Present: PERRL - Neck Neck exam general surgery: Present: supple, trachea midline. Absent: lymphadenopathy - Respiratory Respiratory exam: Present: decreased breath sounds. Absent: accessory muscle use, rales, rhonchi, wheezes - Cardiovascular Cardiovascular exam: Present: RRR, +S1, +S2. Absent: diastolic murmur, gallop, rubs, systolic murmur - GI/Abdominal GI/Abdominal exam: Present: normal bowel sounds, soft, no peritoneal signs. Absent: distended, tenderness - Extremities Exam Extremities exam: Present: warm, radial pulses palpable and symetrical. Absent : calf tenderness, cyanotic, pedal edema - Neurological Exam Neurological exam: Present: CN II-XII intact, oriented X3, no focal deficits. Absent: pronater drift, facial droop, speech deficit - Skin Skin exam: Present: dry, intact Internal Medicine: Result - Labs CBC & Chem 7: 11/25/16 05:43 11/25/16 05:43 Labs: Short CBC 11/25/16 Range/Units 05:43 WBC 5.3 (4.3-11.1) K/mcL Hgb 7.7 L (12.9-16.9) g/dL Hct 24.1 L (37.5-50.1) % Plt Count 199 (140-400) K/mcL Neutrophils # 2.8 (1.6-8.9) K/mcL BMP 11/25/16 05:43 Sodium 143 Potassium 5.2 H Chloride 113 H Carbon Dioxide 21 BUN 102 H Creatinine 4.24 H Glucose 68 L Calcium 8.5 L Urine 11/25/16 Range/Units 10:30 Urine Color Yellow (Yellow) Urine Clarity Clear (Clear) Urine pH 6.0 (5.0-8.0) pH Units Ur Specific [place] 1.016 (1.010-1.025) Urine Protein >=300 H (Neg-Trace) mg/dL Urine Glucose (UA) Normal (Normal) mg/dL - ABG Interpretation ABG results: PT/INR, D-dimer PT 12.4 Seconds (9.4-12.1) H 11/22/16 18:40 - Impressions Impressions Retroperitoneum Ultrasound 11/24/16 15:00 IMPRESSION: Left nephrocalcinosis Bladder diverticulum D/ / Kashmir Zaragoza MD / Kashmir Zaragoza MD Interpreting Provider: Kashmir Zaragoza MD Consult Discharge Plan - Plan Referrals: Ruel Veloz MD [Primary Care Provider] - 12/02/16 2:00 pm (Pleaser follow up as schedule...)
[2016-11-25] MEDS: Melatonin 3 MG TABLET PO SCH (21:51)
[2016-11-25] MEDS: Aspirin 81 MG TAB.CHEW PO SCH (21:51)
[2016-11-25] MEDS: Insulin DETEMIR 100 UNIT/ML X5UNITS SQ SCH (22:06)
[2016-11-26 06:14] LABS: Basophils % 0.5 %; Eosinophils # 0.6 K/mcL (0.0-0.6); Eosinophils % 10.5 %; Hematocrit 27.2 % (37.5-50.1); Hemoglobin 8.5 g/dL (12.9-16.9); Immature Granulocytes % 0.2 % (0-4); Lymphocytes # 1.6 K/mcL (0.6-4.6); Mean Corpuscular HGB Conc 31.3 g/dL (31.6-35.5); Mean Corpuscular Hemoglobin 27.9 pg (28.0-33.3); Mean Corpuscular Volume 89.2 fL (83.0-100.0); Mean Platelet Volume 9.5 fL (9.4-12.4); Monocytes # 0.5 K/mcL (0.0-1.3); Monocytes % 8.3 %; Neutrophils # 3.2 K/mcL (1.6-8.9); Platelet Count 194 K/mcL (140-400); Red Blood Count 3.05 M/mcL (4.19-5.50); Red Cell Distribution Width 13.4 % (11.5-14.5); Segmented Neutrophils % 53.5 %
[2016-11-26 06:23] LABS: Calcium 8.4 mg/dL (8.6-10.8); Potassium 5.3 mEq/L (3.5-4.5)
[2016-11-26] MEDS: *HR* Heparin 5,000 UNIT/ML VIAL SQ SCH ×2 (07:13→17:10)
[2016-11-26] MEDS: Insulin LISPRO 300 UNITS/3 ML VIAL SQ SCH ×4 (07:50→20:10)
[2016-11-26] MEDS: Ascorbic Acid 500 MG TABLET PO SCH (09:18)
[2016-11-26] MEDS: Primidone 50 MG TABLET PO SCH (09:18)
[2016-11-26] MEDS: hydrALAZINE 25 MG TABLET PO SCH ×2 (09:19→20:03)
[2016-11-26] MEDS: Magnesium Oxide 400 MG TABLET PO SCH ×2 (09:19→20:02)
[2016-11-26] MEDS: cloNIDine HCl 0.1 MG TABLET PO SCH ×2 (09:19→20:02)
[2016-11-26] MEDS: NIFEdipine XL (24 HR) 30 MG TAB.ER.24 PO SCH (09:19)
--- NOTE | 2016-11-26 09:50 | Internal Med Progress Note ---
Date of Encounter: 11/26/16 Time of Encounter: 09:48 - Assessment and plan (1) GRACIELA (acute kidney injury) Current Visit: Yes Status: Acute Assessment and plan: D/w medical director/head team physician, will continue monitoring his kidney function tests. His hemoglobin was 7.7, increased to 8.5 after a unit of prbc. Ultrasound of the kidneys obtained, results unremarkable. Continue following recommendations by nephrology. Avoid nephrotoxic agents. Optimize blood pressure control. PT evaliated the patient and recommended inpaient rehab. (2) Anemia Current Visit: Yes Status: Acute Assessment and plan: likely due to chronic disease. Elevated ferritin levels. Aranesp as per nephro. Tranfuse as needed. Qualifiers: Anemia type: unspecified type Qualified Code(s): D64.9 - Anemia, unspecified (3) CKD (chronic kidney disease) Current Visit: Yes Status: Acute Qualifiers: Chronic kidney disease stage: stage 4 (severe) Qualified Code(s): N18.4 - Chronic kidney disease, stage 4 (severe) (4) CAD (coronary artery disease) Current Visit: No Status: Chronic Assessment and plan: No signs of angina present at this time continue home medications Qualifiers: Coronary Disease-Associated Artery/Lesion type: [place] artery [place] vs. transplanted heart: [place] heart Associated angina: without angina Qualified Code(s): I25.10 - Atherosclerotic heart disease of [place] coronary artery without angina pectoris (5) Hypertension Current Visit: No Status: Chronic Assessment and plan: Questionable compliance BP uncontrolled, will increase hydralazine to 75 mg bid. Continue home medications closely monitor BP will adjust medications as needed. Qualifiers: Hypertension type: essential hypertension Qualified Code(s): I10 - Essential (primary) hypertension - Subjective Interval history: One of his family members was present during this encounter. Patient did not sleep well last night, denies fever. Was having breakfast. - Constitutional Vitals: Temp Pulse Resp BP Pulse Ox 97.5 F L 60 16 167/64 95 11/26/16 06:52 11/26/16 06:52 11/26/16 06:52 11/26/16 06:52 11/26/16 06:52 General appearance: Present: A&O X 3, no acute distress, obese, answers questions appropriately - Head Head exam: Present: atraumatic, normocephalic - Eye Eye exam: Present: PERRL, conjuntiva pink, sclera anicteric Pupils: Present: PERRL - Neck Neck exam general surgery: Present: supple, trachea midline. Absent: lymphadenopathy - Respiratory Respiratory exam: Present: CTAB. Absent: accessory muscle use, rales, rhonchi, wheezes - Cardiovascular Cardiovascular exam: Present: RRR, +S1, +S2. Absent: diastolic murmur, gallop, rubs, systolic murmur - GI/Abdominal GI/Abdominal exam: Present: normal bowel sounds, soft, no peritoneal signs. Absent: distended, tenderness - Extremities Exam Extremities exam: Present: warm, radial pulses palpable and symetrical. Absent : calf tenderness, cyanotic, pedal edema - Neurological Exam Neurological exam: Present: CN II-XII intact, oriented X3, no focal deficits. Absent: pronater drift, facial droop, speech deficit - Skin Skin exam: Present: dry, intact Internal Medicine: Result - Labs CBC & Chem 7: 11/26/16 05:29 11/26/16 05:29 Labs: Short CBC 11/26/16 Range/Units 05:29 WBC 5.9 (4.3-11.1) K/mcL Hgb 8.5 L (12.9-16.9) g/dL Hct 27.2 L (37.5-50.1) % Plt Count 194 (140-400) K/mcL Neutrophils # 3.2 (1.6-8.9) K/mcL BMP 11/26/16 05:29 Sodium 140 Potassium 5.3 H Chloride 111 H Carbon Dioxide 19 BUN 100 H Creatinine 4.20 H Glucose 82 Calcium 8.4 L Urine 11/25/16 Range/Units 10:30 Urine Color Yellow (Yellow) Urine Clarity Clear (Clear) Urine pH 6.0 (5.0-8.0) pH Units Ur Specific [place] 1.016 (1.010-1.025) Urine Protein >=300 H (Neg-Trace) mg/dL Urine Glucose (UA) Normal (Normal) mg/dL - ABG Interpretation ABG results: PT/INR, D-dimer PT 12.4 Seconds (9.4-12.1) H 11/22/16 18:40 Consult Discharge Plan - Plan Referrals: Ruel Veloz MD [Primary Care Provider] - 12/02/16 2:00 pm (Pleaser follow up as schedule...)
--- NOTE | 2016-11-26 13:37 | Nephrology Progress Note ---
Date of Encounter: 11/26/16 - Assessment and Plan (1) GRACIELA (acute kidney injury) Current Visit: Yes Status: Acute SCr slightly worse at 4.24, GFR 14 but might b reaching a plateau. No acute indication for PUMPER GAGER APPRENTICE at this time however will monitor daily US of kidney unremarkable Urine studies yet to be done as ordered! Encouraged adequate po fluids UOP acceptable at 910cc in the past 24hrs CPK WNL, uric acid slightly elevated (2) Anemia Current Visit: Yes Status: Acute HGb low but stable at 7.7 with iron studies done 11/13 WNL along with vitamin B12 and folate Agree with transfusion of a unit pRBCs today which might help renal function Will also dose with aranesp today as well Qualifiers: Anemia type: unspecified type Qualified Code(s): D64.9 - Anemia, unspecified (3) Accelerated hypertension Current Visit: No Status: Acute BP elevated again from dropping yesterday to 100s systolic. Unclear if any antiBP meds were held. Will discuss with nurse Will consider increasing hydralazine to 75mg bid if BP persists (4) CKD (chronic kidney disease) stage 4, GFR 15-29 ml/min Current Visit: No Status: Chronic (5) Hyperkalemia Current Visit: Yes Status: Acute Baseline GFR this year between 17-20. Follows with Dr Velasquez on outpatient Subjective Interval history: Pt seen and examined. Objective - Vital Signs Vital signs: Vital Signs Temp Pulse Resp BP Pulse Ox 11/26/16 10:55 97.4 F L 60 16 134/69 91 11/26/16 06:52 97.5 F L 60 16 167/64 95 11/26/16 04:57 97.7 F 61 16 191/80 96 11/25/16 23:34 98.3 F 54 16 159/70 97 11/25/16 20:00 97.8 F 60 16 158/68 94 11/25/16 18:08 97.5 F L 60 16 129/67 94 11/25/16 15:05 97.6 F 57 16 144/66 94 11/25/16 14:45 97.4 F L 58 16 138/63 94 Intake and Output 11/25/16 11/26/16 11/26/16 23:59 07:59 15:59 Intake Total 350 / 350 480 / 480 Output Total 850 / 850 Balance 350 / 350 -850 / -850 480 / 480 Intake: Oral 480 / 480 Blood Product 350 / 350 Rbcs Leuko Poor As-1 350 / 350 Unit [id number] Output: Urine 850 / 850 Other: Meal Lunch Percent of Meal Consumed 100% Weight 100.4 kg Blood Glucose* 196 81 170 Patient Weight 11/26/16 23:59 Weight 100.4 kg - Lab 11/26/16 05:29 11/26/16 05:29 Most recent lab results Calcium 8.4 mg/dL (8.6-10.8) L 11/26/16 05:29 Phosphorus 5.3 mg/dL (2.3-4.7) H 11/25/16 05:43 Magnesium 2.0 mg/dL (1.6-2.6) 11/25/16 05:43 Urine Creatinine 58 mg/dL 11/25/16 10:30 Urine Sodium 64.0 mEq/L 11/25/16 10:30 Urine Total Protein 168 mg/dL (1-14) H 11/25/16 10:30 Consult Discharge Plan - Plan Referrals: Ruel Veloz MD [Primary Care Provider] - 12/02/16 2:00 pm (Pleaser follow up as schedule...)
[2016-11-26] MEDS: Fluticasone Propionate Nasal 50 MCG/SPRAY BOTTLE NS SCH (14:10)
[2016-11-26] MEDS: Melatonin 3 MG TABLET PO SCH (20:02)
[2016-11-26] MEDS: Aspirin 81 MG TAB.CHEW PO SCH (20:02)
[2016-11-26] MEDS: Insulin DETEMIR 100 UNIT/ML X5UNITS SQ SCH (21:20)
[2016-11-27 05:45] LABS: Basophils % 0.7 %; Eosinophils # 0.6 K/mcL (0.0-0.6); Hematocrit 25.4 % (37.5-50.1); Hemoglobin 8.2 g/dL (12.9-16.9); Immature Granulocytes % 0.3 % (0-4); Lymphocytes # 1.4 K/mcL (0.6-4.6); Mean Corpuscular HGB Conc 32.3 g/dL (31.6-35.5); Mean Corpuscular Hemoglobin 28.7 pg (28.0-33.3); Mean Corpuscular Volume 88.8 fL (83.0-100.0); Mean Platelet Volume 9.8 fL (9.4-12.4); Monocytes # 0.5 K/mcL (0.0-1.3); Monocytes % 8.9 %; Neutrophils # 3.2 K/mcL (1.6-8.9); Platelet Count 178 K/mcL (140-400); Red Blood Count 2.86 M/mcL (4.19-5.50); Red Cell Distribution Width 13.1 % (11.5-14.5); Segmented Neutrophils % 56.1 %
[2016-11-27] MEDS: *HR* Heparin 5,000 UNIT/ML VIAL SQ SCH ×2 (05:57→17:02)
[2016-11-27 06:02] LABS: Calcium 8.3 mg/dL (8.6-10.8); Potassium 5.3 mEq/L (3.5-4.5)
[2016-11-27] MEDS: Ondansetron 4 MG/2 ML VIAL IVP PRN (07:09)
[2016-11-27] MEDS: Insulin LISPRO 300 UNITS/3 ML VIAL SQ SCH ×4 (07:25→21:16)
[2016-11-27] MEDS: Ascorbic Acid 500 MG TABLET PO SCH (07:29)
[2016-11-27] MEDS: NIFEdipine XL (24 HR) 30 MG TAB.ER.24 PO SCH (07:29)
[2016-11-27] MEDS: hydrALAZINE 25 MG TABLET PO SCH ×2 (07:29→21:15)
[2016-11-27] MEDS: Magnesium Oxide 400 MG TABLET PO SCH ×2 (07:30→21:15)
[2016-11-27] MEDS: cloNIDine HCl 0.1 MG TABLET PO SCH ×2 (07:30→21:11)
[2016-11-27] MEDS: Fluticasone Propionate Nasal 50 MCG/SPRAY BOTTLE NS SCH (07:30)
[2016-11-27] MEDS: Primidone 50 MG TABLET PO SCH (07:30)
[2016-11-27 12:21] LABS: Albumin 3.1 g/dL (3.5-5.0); Bilirubin,Direct 0.1 mg/dL (0.0-0.5); Bilirubin,Indirect 0.2 mg/dL (0.0-1.2); Bilirubin,Total 0.3 mg/dL (0.2-1.2); Globulin 3.2 g/dL (2.4-3.5); Total Protein 6.3 g/dL (6.0-8.3)
--- NOTE | 2016-11-27 12:50 | Internal Med Progress Note ---
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 His hemoglobin was 7.7, increased to 8.5 after a unit of prbc, today is 8.2. Ultrasound of the kidneys obtained, results unremarkable. Continue following recommendations by nephrology. Avoid nephrotoxic agents. Optimize blood pressure control. PT evaliated the patient and recommended inpaient rehab. patent has declined going to rehab. (2) Anemia Current Visit: Yes Status: Acute Assessment and plan: likely due to chronic disease. Elevated ferritin levels. Aranesp as per nephro. Tranfuse as needed. Qualifiers: Anemia type: unspecified type Qualified Code(s): D64.9 - Anemia, unspecified (3) CKD (chronic kidney disease) Current Visit: Yes Status: Acute Qualifiers: Chronic kidney disease stage: stage 4 (severe) Qualified Code(s): N18.4 - Chronic kidney disease, stage 4 (severe) (4) CAD (coronary artery disease) Current Visit: No Status: Chronic Assessment and plan: No signs of angina present at this time continue home medications Qualifiers: Coronary Disease-Associated Artery/Lesion type: [place] artery [place] vs. transplanted heart: [place] heart Associated angina: without angina Qualified Code(s): I25.10 - Atherosclerotic heart disease of [place] coronary artery without angina pectoris (5) Hypertension Current Visit: No Status: Chronic Assessment and plan: Questionable compliance BP uncontrolled, will continue with hydralazine to 75 mg bid when able to take po. Continue home medications closely monitor BP will adjust medications as needed. Qualifiers: Hypertension type: essential hypertension Qualified Code(s): I10 - Essential (primary) hypertension (6) Intractable nausea and vomiting Current Visit: Yes Status: Acute Assessment and plan: associated with ruq, patient states that has history of gallstones, will keep him npo for now and obtain a RUQ US. No fever, no leukocytosis, continue monitoring. Qualifiers: Vomiting type: unspecified Qualified Code(s): R11.2 - Nausea with vomiting , unspecified - Subjective Interval history: patient nauseous, vomited 3 times this am. - Constitutional Vitals: Temp Pulse Resp BP Pulse Ox 97.7 F 78 16 186/70 93 11/27/16 12:05 11/27/16 12:05 11/27/16 12:05 11/27/16 12:05 11/27/16 12:05 General appearance: Present: A&O X 3, no acute distress, obese, answers questions appropriately - Head Head exam: Present: atraumatic, normocephalic - Eye Eye exam: Present: PERRL, conjuntiva pink, sclera anicteric Pupils: Present: PERRL - Neck Neck exam general surgery: Present: supple, trachea midline. Absent: lymphadenopathy - Respiratory Respiratory exam: Present: CTAB. Absent: accessory muscle use, rales, rhonchi, wheezes - Cardiovascular Cardiovascular exam: Present: RRR, +S1, +S2. Absent: diastolic murmur, gallop, rubs, systolic murmur - GI/Abdominal GI/Abdominal exam: Present: normal bowel sounds, soft. Absent: distended, tenderness Additional comments: ruq tenderness - Extremities Exam Extremities exam: Present: warm, radial pulses palpable and symetrical. Absent : calf tenderness, cyanotic, pedal edema - Neurological Exam Neurological exam: Present: CN II-XII intact, oriented X3, no focal deficits. Absent: pronater drift, facial droop, speech deficit - Skin Skin exam: Present: dry, intact Internal Medicine: Result - Labs CBC & Chem 7: 11/27/16 04:00 11/27/16 04:00 Labs: Short CBC 11/27/16 Range/Units 04:00 WBC 5.7 (4.3-11.1) K/mcL Hgb 8.2 L (12.9-16.9) g/dL Hct 25.4 L (37.5-50.1) % Plt Count 178 (140-400) K/mcL Neutrophils # 3.2 (1.6-8.9) K/mcL BMP 11/27/16 04:00 Sodium 141 Potassium 5.3 H Chloride 110 H Carbon Dioxide 18 L BUN 102 H Creatinine 4.23 H Glucose 87 Calcium 8.3 L Liver Function 11/27/16 Range/Units 12:00 Total Bilirubin 0.3 (0.2-1.2) mg/dL Direct Bilirubin 0.1 (0.0-0.5) mg/dL AST 15 (5-34) Units/L ALT 14 (0-55) Units/L Alkaline Phosphatase 60 (38-126) Units/L Albumin 3.1 L (3.5-5.0) g/dL - ABG Interpretation ABG results: PT/INR, D-dimer PT 12.4 Seconds (9.4-12.1) H 11/22/16 18:40 Consult Discharge Plan - Plan Referrals: Ruel Veloz MD [Primary Care Provider] - 12/02/16 2:00 pm (Pleaser follow up as schedule...)
--- NOTE | 2016-11-27 15:05 | Nephrology Progress Note ---
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 In the meantime since NPO, will give gentle hydration Continue to avoid nephrotoxins if possible (2) Anemia Current Visit: Yes Status: Acute Hgb fairly stable at 8.2 after transfusion pRBCs 2 days ago s/p aranesp this week, will continue weekly Qualifiers: Anemia type: unspecified type Qualified Code(s): D64.9 - Anemia, unspecified (3) Accelerated hypertension Current Visit: No Status: Acute BP remains elevated around 150-170s systolic, agree with increasing hydralazine to 75mg bid (4) CKD (chronic kidney disease) stage 4, GFR 15-29 ml/min Current Visit: No Status: Chronic Baseline GFR this year between 17-20 (5) Hyperkalemia Current Visit: Yes Status: Acute Potassium remains elevated despite adding renal diet to his diet yesterday. Would improve if SCr improves with IVF and/or bicarb added or VESSEL CREW MEMBER started Subjective Interval history: Pt seen and examined with aunt at bedside with nausea and vomiting today along with RUQ abd pain. US RUQ pending. Now NPO. Objective - Vital Signs Vital signs: Vital Signs Temp Pulse Resp BP Pulse Ox 11/27/16 12:05 97.7 F 78 16 186/70 93 11/27/16 08:27 84 186/73 11/27/16 07:41 92 11/27/16 07:27 97.4 F L 81 16 202/73 92 11/27/16 05:21 97.9 F 59 16 167/75 95 11/26/16 20:27 97.8 F 62 17 168/72 92 11/26/16 20:25 94 Intake and Output 11/26/16 11/27/16 11/27/16 23:59 07:59 15:59 Intake Total 340 / 340 0 / 0 360 / 360 Output Total 2100 / 2100 0 / 0 Balance 340 / 340 -2100 / -2100 360 / 360 Intake: Oral 340 / 340 0 / 0 360 / 360 Output: Urine 2100 / 2100 0 / 0 Other: Meal Dinner npo Percent of Meal Consumed 100% 100% Stool Size Moderate Stool Characteristics Normal for Patient Stool Color Brown # Bowel Movements 1 Weight 102.5 kg Blood Glucose* 119 110 177 Patient Weight 11/27/16 23:59 Weight 102.5 kg - General Appearance General appearance: Present: well-developed, well-nourished EENT: Present: ATNC, mucous membranes dry Neck: Present: no JVD, supple Respiratory: Present: clear Cardiology: Present: edema (trace LE bilat), normal S1, normal S2 Dialysis Vascular Access: Arteriovenous Fistula thrill: Yes bruit: Yes Gastrointestinal: Present: no guarding Integumentary: Present: no rash, warm and dry Neurologic: Present: no focal deficit Musculoskeletal: Present: no deformities Psychiatric: Present: mood/affect appropriate, cooperative - Lab 11/27/16 04:00 11/27/16 04:00 Most recent lab results Calcium 8.3 mg/dL (8.6-10.8) L 11/27/16 04:00 Phosphorus 5.3 mg/dL (2.3-4.7) H 11/25/16 05:43 Magnesium 2.0 mg/dL (1.6-2.6) 11/25/16 05:43 Urine Creatinine 58 mg/dL 11/25/16 10:30 Urine Sodium 64.0 mEq/L 11/25/16 10:30 Urine Total Protein 168 mg/dL (1-14) H 11/25/16 10:30 Consult Discharge Plan - Plan Referrals: Ruel Veloz MD [Primary Care Provider] - 12/02/16 2:00 pm (Pleaser follow up as schedule...)
[2016-11-27] MEDS ORDERED: 0.9 % Sodium Chloride 1,000 ML IVC SCH ×2 (16:30→20:40)
[2016-11-27] MEDS ORDERED: Metoclopramide 10 MG/2 ML VIAL IVP PRN (20:39)
[2016-11-27] MEDS ORDERED: Prochlorperazine 10 MG/2 ML VIAL IVP PRN (20:41)
[2016-11-27] MEDS: *HR* Labetalol 20 MG/4 ML SYRINGE IVP PRN (21:04)
[2016-11-27] MEDS: *HR* Morphine 2 MG/ML SYRINGE IVP PRN (21:05)
[2016-11-27] MEDS: Aspirin 81 MG TAB.CHEW PO SCH (21:11)
[2016-11-27] MEDS: Melatonin 3 MG TABLET PO SCH (21:15)
[2016-11-27] MEDS: Insulin DETEMIR 100 UNIT/ML X5UNITS SQ SCH (21:17)
[2016-11-28] MEDS: Ondansetron 4 MG/2 ML VIAL IVP SCH ×2 (00:58→04:39)
[2016-11-28] MEDS: *HR* HYDROcodone/Acet 5/325 mg TABLET PO PRN (00:59)
[2016-11-28] MEDS: *HR* Labetalol 20 MG/4 ML SYRINGE IVP PRN ×4 (00:59→16:01)
[2016-11-28] MEDS: hydrALAZINE 25 MG TABLET PO SCH ×4 (00:59→20:18)
[2016-11-28 04:26] LABS: Basophils % 0.5 %; Eosinophils # 0.3 K/mcL (0.0-0.6); Eosinophils % 4.8 %; Hematocrit 27.3 % (37.5-50.1); Hemoglobin 8.8 g/dL (12.9-16.9); Immature Granulocytes % 0.5 % (0-4); Lymphocytes # 1.1 K/mcL (0.6-4.6); Lymphocytes % 17.4 %; Mean Corpuscular HGB Conc 32.2 g/dL (31.6-35.5); Mean Corpuscular Hemoglobin 28.9 pg (28.0-33.3); Mean Corpuscular Volume 89.5 fL (83.0-100.0); Mean Platelet Volume 9.4 fL (9.4-12.4); Monocytes # 0.6 K/mcL (0.0-1.3); Monocytes % 8.7 %; Neutrophils # 4.4 K/mcL (1.6-8.9); Platelet Count 175 K/mcL (140-400); Red Blood Count 3.05 M/mcL (4.19-5.50); Red Cell Distribution Width 13.4 % (11.5-14.5); Segmented Neutrophils % 68.1 %
[2016-11-28] MEDS: *HR* Heparin 5,000 UNIT/ML VIAL SQ SCH ×2 (04:39→17:16)
[2016-11-28] MEDS: *HR* Morphine 2 MG/ML SYRINGE IVP PRN (04:39)
[2016-11-28 04:45] LABS: Calcium 8.6 mg/dL (8.6-10.8)
[2016-11-28] MEDS ORDERED: 0.9 % Sodium Chloride 250 ML IVC PRN (07:17)
[2016-11-28] MEDS: Insulin LISPRO 300 UNITS/3 ML VIAL SQ SCH ×4 (08:03→20:25)
[2016-11-28] MEDS: Ascorbic Acid 500 MG TABLET PO SCH (08:04)
[2016-11-28] MEDS: Magnesium Oxide 400 MG TABLET PO SCH ×2 (08:04→20:16)
[2016-11-28] MEDS: Ondansetron 4 MG/2 ML VIAL IVP PRN ×2 (08:13→17:16)
[2016-11-28] MEDS: Fluticasone Propionate Nasal 50 MCG/SPRAY BOTTLE NS SCH (08:20)
[2016-11-28] MEDS ORDERED: *HR* Morphine 2 MG/ML SYRINGE IVP PRN (08:33)
[2016-11-28] MEDS ORDERED: Prochlorperazine 10 MG/2 ML VIAL IVP PRN (08:33)
--- NOTE | 2016-11-28 08:44 | Nephrology Progress Note ---
Date of Encounter: 11/28/16 Time of Encounter: 07:50 - Assessment and Plan (1) ESRD (end stage renal disease) Current Visit: Yes Status: Acute Will declare the pt ESRD at this point. Having too many uremic symptoms. Will go straight for a Permacath. I made him NPO this morning and personally contacted IR for their assistance. I reviewed the R/B/I and options for HD. I recommend a Permacath as he is unlikely to see renal recovery going forward. Will consult the SW to help arrange a dialysis chair No need for IVF, which did not appear to help and the pt voiced feeling more short of breath. Will stop. Continue to follow a renal protective strategy. Will follow with you. Next HD is planned for tomorrow. Thank you. (2) Hyperkalemia Current Visit: Yes Status: Acute Will improve with HD (3) Intractable nausea and vomiting Current Visit: Yes Status: Acute As per primary. Biochemically, he would be more stable after starting HD. So if he has any surgical indications, then since he's starting dialysis, this may help bring stability for any potential future surgery or procedure. Qualifiers: Vomiting type: unspecified Qualified Code(s): R11.2 - Nausea with vomiting , unspecified (4) Nephrotic syndrome Current Visit: No Status: Acute (5) Anemia in chronic kidney disease (CKD) Current Visit: No Status: Chronic Goal Hgb is 10-11 (6) DM type 2 (diabetes mellitus, type 2) Current Visit: No Status: Chronic As per primary 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 technician terminal and repeater insulin use: with alf use Chronic kidney disease stage: stage 4 (severe) Qualified Code(s): E11.22 - Type 2 diabetes mellitus with diabetic chronic kidney disease; N18.4 - Chronic kidney disease, stage 4 (severe); Z79.4 - FDC (current) use of insulin (7) Hypertension Current Visit: No Status: Chronic Continue Current Care. Expecting to see improvement with fluid removal from HD. Qualifiers: Hypertension type: essential hypertension Qualified Code(s): I10 - Essential (primary) hypertension Subjective Principal diagnosis: N/V, renal dysfunction Interval history: Pt was s/e. He c/o worsening N/V, and poor sleep overnight. He voiced consent to proceed with HD. He did not affirm CP, but still has some abd pain. Objective - Vital Signs Vital signs: Vital Signs Temp Pulse Resp BP Pulse Ox 11/28/16 07:45 98.2 F 68 16 213/100 90 11/28/16 05:35 98.0 F 64 17 189/74 91 11/27/16 23:11 71 20 215/83 91 11/27/16 20:18 98.4 F 78 17 210/80 94 11/27/16 17:11 97.7 F 84 18 205/76 95 11/27/16 12:05 97.7 F 78 16 186/70 93 Intake and Output 11/27/16 11/28/16 11/28/16 23:59 07:59 15:59 Intake Total 100 / 100 Output Total 100 / 100 650 / 650 Balance -100 / -100 -550 / -550 Intake: Oral 100 / 100 Output: Urine 100 / 100 650 / 650 Other: Stool Size Moderate Stool Consistency soft formed Stool Characteristics [place] Stool Color Black # Bowel Movements 1 Weight 102.5 kg Blood Glucose* 228 198 Patient Weight 11/28/16 23:59 Weight 102.5 kg - General Appearance General appearance: Present: moderate distress (retching with dry heaves this AM ) EENT: Present: ATNC, PERRL Neck: Present: supple Cardiology: Present: edema (trace to 1+ pretibial pitting edema b/l ), regular rate, regular rhythm, normal S1, normal S2 Gastrointestinal: Present: normoactive bowel sounds, no tenderness, no guarding , no masses Integumentary: Present: no rash, warm and dry Neurologic: Present: no focal deficit, no asterixis, alert and oriented x3 Musculoskeletal: Present: no deformities, no erythema, no cyanosis Psychiatric: Present: mood/affect appropriate, cooperative - Lab 11/28/16 04:11 11/28/16 04:11 Most recent lab results Calcium 8.6 mg/dL (8.6-10.8) 11/28/16 04:11 Phosphorus 5.3 mg/dL (2.3-4.7) H 11/25/16 05:43 Magnesium 2.0 mg/dL (1.6-2.6) 11/25/16 05:43 Urine Creatinine 58 mg/dL 11/25/16 10:30 Urine Sodium 64.0 mEq/L 11/25/16 10:30 Urine Total Protein 168 mg/dL (1-14) H 11/25/16 10:30 Consult Discharge Plan - Plan Referrals: Ruel Veloz MD [Primary Care Provider] - 12/02/16 2:00 pm (Pleaser follow up as schedule...)
[2016-11-28] MEDS: cloNIDine HCl 0.1 MG TABLET PO SCH ×2 (10:42→20:17)
[2016-11-28] MEDS ORDERED: *HR* FentaNYL (PF) 100 MCG/2 ML VIAL IVP PRN (11:01)
[2016-11-28] MEDS ORDERED: ceFAZolin 2,000 MG in D5% in Water (Mini-Bag+) 100 ML IVPB ONE (11:01)
[2016-11-28] MEDS ORDERED: *HR* Midazolam HCl 2 MG/2 ML VIAL IVP PRN (11:01)
[2016-11-28] MEDS ORDERED: 0.9 % Sodium Chloride 500 ML ONE (12:03)
--- NOTE | 2016-11-28 12:19 | Pre-Sedation Evaluation ---
Pre-sedation evaluation - Pre-sedation checklist Date of procedure: 11/28/16 Procedure: permacath Recent Vitals: Last Vital Signs Temp 98.3 F 11/28/16 10:42 Pulse 83 11/28/16 12:16 Resp 16 11/28/16 12:16 BP 199/93 11/28/16 12:16 Pulse Ox 92 11/28/16 12:16 H&P (including ROS) documented in medical record: Yes Previous reaction to sedatives/anesthetics: No Dietary Status: NPO after Midnight Dentition: full dentition ASA Classification *see protocol: CLASS II-Mild systemic disease Plan of Care: Pt appropriate candidate for procedure/moderate/conscious sedation , Risks/benefits of procedure/sedation discussed w/ patient/family
--- NOTE | 2016-11-28 12:20 | IR Procedure Note ---
Date of procedure: 11/28/16 Consent Obtained: Written consent Timeout: Correct patient and procedure verified, Time out performed, Skin prep completed Local anesthetic: Lidocaine 1% Indications: CRF Procedure Performed: Permacath placement Results/Findings: RIJ TDC placement Complications: None; Tolerated procedure well (Monitor on floor)
[2016-11-28] MEDS: NIFEdipine XL (24 HR) 30 MG TAB.ER.24 PO SCH ×2 (13:10→16:03)
[2016-11-28] MEDS: Primidone 50 MG TABLET PO SCH (13:10)
[2016-11-28 13:38] LABS: Hepatitis B Surface Antibody 0.35 mIU/mL; Hepatitis B Surface Antigen Nonreactive (Nonreactive)
[2016-11-28] MEDS ORDERED: 0.9 % Sodium Chloride 2,000 ML ONE (15:01)
--- NOTE | 2016-11-28 15:58 | Internal Med Progress Note ---
Date of Encounter: 11/28/16 Time of Encounter: 15:55 - Assessment and plan (1) ESRD (end stage renal disease) Current Visit: Yes Status: Acute Assessment and plan: started on hd today, will follow nephro input. (2) Anemia Current Visit: Yes Status: Acute Assessment and plan: likely due to chronic disease. Elevated ferritin levels. Aranesp as per nephro. Tranfuse as needed. Qualifiers: Anemia type: unspecified type Qualified Code(s): D64.9 - Anemia, unspecified (3) CKD (chronic kidney disease) Current Visit: Yes Status: Acute Qualifiers: Chronic kidney disease stage: stage 4 (severe) Qualified Code(s): N18.4 - Chronic kidney disease, stage 4 (severe) (4) CAD (coronary artery disease) Current Visit: No Status: Chronic Assessment and plan: No signs of angina present at this time continue home medications Qualifiers: Coronary Disease-Associated Artery/Lesion type: [place] artery [place] vs. transplanted heart: [place] heart Associated angina: without angina Qualified Code(s): I25.10 - Atherosclerotic heart disease of [place] coronary artery without angina pectoris (5) Hypertension Current Visit: No Status: Chronic Assessment and plan: BP uncontrolled, nauseous, imght improved after HD, will give iv prn meds and will continue with hydralazine to 75 mg bid when able to take po along with procardia and clonidine closely monitor BP will adjust medications as needed. Qualifiers: Hypertension type: essential hypertension Qualified Code(s): I10 - Essential (primary) hypertension (6) Intractable nausea and vomiting Current Visit: Yes Status: Acute Assessment and plan: us no evidence of cholecystitis, only cholelithiasis, no fever, no leukocytosis. Qualifiers: Vomiting type: unspecified Qualified Code(s): R11.2 - Nausea with vomiting , unspecified - Subjective Interval history: patient nauseous, had permacath insertion and hd today. - Constitutional Vitals: Temp Pulse Resp BP Pulse Ox 98 F 69 19 198/87 92 11/28/16 15:08 11/28/16 12:40 11/28/16 15:08 11/28/16 15:08 11/28/16 12:16 General appearance: Present: A&O X 3, no acute distress, obese, answers questions appropriately Exam: hd access placed. - Head Head exam: Present: atraumatic, normocephalic - Eye Eye exam: Present: PERRL, conjuntiva pink, sclera anicteric Pupils: Present: PERRL - Neck Neck exam general surgery: Present: supple, trachea midline. Absent: lymphadenopathy - Respiratory Respiratory exam: Present: CTAB. Absent: accessory muscle use, rales, rhonchi, wheezes - Cardiovascular Cardiovascular exam: Present: RRR, +S1, +S2. Absent: diastolic murmur, gallop, rubs, systolic murmur - GI/Abdominal GI/Abdominal exam: Present: normal bowel sounds, soft, no peritoneal signs. Absent: distended, tenderness - Extremities Exam Extremities exam: Present: warm, radial pulses palpable and symetrical. Absent : calf tenderness, cyanotic, pedal edema - Neurological Exam Neurological exam: Present: CN II-XII intact, oriented X3, no focal deficits. Absent: pronater drift, facial droop, speech deficit - Skin Skin exam: Present: dry, intact Internal Medicine: Result - Labs CBC & Chem 7: 11/28/16 04:11 11/28/16 04:11 Labs: Short CBC 11/28/16 Range/Units 04:11 WBC 6.4 (4.3-11.1) K/mcL Hgb 8.8 L (12.9-16.9) g/dL Hct 27.3 L (37.5-50.1) % Plt Count 175 (140-400) K/mcL Neutrophils # 4.4 (1.6-8.9) K/mcL BMP 11/28/16 04:11 Sodium 138 Potassium 5.0 H Chloride 109 Carbon Dioxide 18 L BUN 89 H Creatinine 4.02 H Glucose 205 H Calcium 8.6 - ABG Interpretation ABG results: PT/INR, D-dimer PT 12.4 Seconds (9.4-12.1) H 11/22/16 18:40 - Impressions Impressions Guidance Needle Placement Ultrasound 11/28/16 00:00 IMPRESSION: 1. Right internal jugular vein tunneled dialysis catheter placement as discussed above. D/ / David Carlos MD / David Carlos MD Interpreting Provider: David Carlos MD Insertion Tunneled Catheter 11/28/16 00:00 IMPRESSION: 1. Right internal jugular vein tunneled dialysis catheter placement as discussed above. D/ / David Carlos MD / David Carlos MD Interpreting Provider: David Carlos MD Consult Discharge Plan - Plan Referrals: Ruel Veloz MD [Primary Care Provider] - 12/02/16 2:00 pm (Pleaser follow up as schedule...)
[2016-11-28] MEDS: Pantoprazole 40 MG VIAL IVP SCH (16:00)
[2016-11-28] MEDS: Aspirin 81 MG TAB.CHEW PO SCH (20:16)
[2016-11-28] MEDS: Melatonin 3 MG TABLET PO SCH (20:18)
[2016-11-28] MEDS: Insulin DETEMIR 100 UNIT/ML X5UNITS SQ SCH (20:19)
[2016-11-29 03:23] LABS: Basophils % 0.5 %; Eosinophils # 0.4 K/mcL (0.0-0.6); Eosinophils % 7.1 %; Hematocrit 24.2 % (37.5-50.1); Hemoglobin 7.9 g/dL (12.9-16.9); Immature Granulocytes % 0.5 % (0-4); Lymphocytes # 1.5 K/mcL (0.6-4.6); Lymphocytes % 27.3 %; Mean Corpuscular HGB Conc 32.6 g/dL (31.6-35.5); Mean Corpuscular Hemoglobin 29.2 pg (28.0-33.3); Mean Corpuscular Volume 89.3 fL (83.0-100.0); Mean Platelet Volume 9.8 fL (9.4-12.4); Monocytes # 0.7 K/mcL (0.0-1.3); Monocytes % 12.5 %; Neutrophils # 2.9 K/mcL (1.6-8.9); Platelet Count 157 K/mcL (140-400); Red Blood Count 2.71 M/mcL (4.19-5.50); Red Cell Distribution Width 13.6 % (11.5-14.5); Segmented Neutrophils % 52.1 %
[2016-11-29 03:41] LABS: Calcium 8.2 mg/dL (8.6-10.8); Potassium 4.4 mEq/L (3.5-4.5)
[2016-11-29] MEDS: *HR* Heparin 5,000 UNIT/ML VIAL SQ SCH ×2 (06:06→17:16)
[2016-11-29] MEDS ORDERED: 0.9 % Sodium Chloride 250 ML IVC PRN (06:12)
[2016-11-29] MEDS: Magnesium Oxide 400 MG TABLET PO SCH ×2 (08:10→21:22)
[2016-11-29] MEDS: Primidone 50 MG TABLET PO SCH (08:10)
[2016-11-29] MEDS: Ascorbic Acid 500 MG TABLET PO SCH (08:10)
[2016-11-29] MEDS: Pantoprazole 40 MG VIAL IVP SCH (08:10)
[2016-11-29] MEDS: Insulin LISPRO 300 UNITS/3 ML VIAL SQ SCH ×4 (08:13→21:27)
[2016-11-29] MEDS: Fluticasone Propionate Nasal 50 MCG/SPRAY BOTTLE NS SCH (08:17)
[2016-11-29] MEDS: cloNIDine HCl 0.1 MG TABLET PO SCH ×3 (08:19→21:23)
[2016-11-29] MEDS: hydrALAZINE 25 MG TABLET PO SCH ×3 (08:19→21:24)
--- NOTE | 2016-11-29 10:32 | Internal Med Progress Note ---
Date of Encounter: 11/29/16 Time of Encounter: 10:29 - Assessment and plan (1) ESRD (end stage renal disease) Current Visit: Yes Status: Acute Assessment and plan: started on hd yesterday, having another session today, will follow nephro input. (2) Anemia Current Visit: Yes Status: Acute Assessment and plan: hb dropped to 7.9 today, likely due to chronic disease. Elevated ferritin levels. Aranesp as per nephro. Tranfuse as needed. Qualifiers: Anemia type: unspecified type Qualified Code(s): D64.9 - Anemia, unspecified (3) CKD (chronic kidney disease) Current Visit: Yes Status: Acute Qualifiers: Chronic kidney disease stage: stage 4 (severe) Qualified Code(s): N18.4 - Chronic kidney disease, stage 4 (severe) (4) CAD (coronary artery disease) Current Visit: No Status: Chronic Assessment and plan: No signs of angina present at this time continue home medications Qualifiers: Coronary Disease-Associated Artery/Lesion type: [place] artery [place] vs. transplanted heart: [place] heart Associated angina: without angina Qualified Code(s): I25.10 - Atherosclerotic heart disease of [place] coronary artery without angina pectoris (5) Hypertension Current Visit: No Status: Chronic Assessment and plan: BP uncontrolled, improved compared to yesterday, anticipate further improved after hd, continue with hydralazine, procardia and clonidine closely monitor BP will adjust medications as needed. Qualifiers: Hypertension type: essential hypertension Qualified Code(s): I10 - Essential (primary) hypertension (6) Intractable nausea and vomiting Current Visit: Yes Status: Acute Assessment and plan: us no evidence of cholecystitis, only cholelithiasis, no fever, no leukocytosis. getting better, likely due to uremia. will advance diet. Qualifiers: Vomiting type: unspecified Qualified Code(s): R11.2 - Nausea with vomiting , unspecified - Subjective Interval history: patientdenies nausea today. seen while having hd. - Constitutional Vitals: Temp Pulse Resp BP Pulse Ox 98.4 F 58 18 181/72 96 11/29/16 07:08 11/29/16 07:08 11/29/16 07:08 11/29/16 07:08 11/29/16 07:08 General appearance: Present: A&O X 3, no acute distress, obese, answers questions appropriately - Head Head exam: Present: atraumatic, normocephalic - Eye Eye exam: Present: PERRL, conjuntiva pink, sclera anicteric Pupils: Present: PERRL - Neck Neck exam general surgery: Present: supple, trachea midline. Absent: lymphadenopathy - Respiratory Respiratory exam: Present: CTAB. Absent: accessory muscle use, rales, rhonchi, wheezes - Cardiovascular Cardiovascular exam: Present: RRR, +S1, +S2. Absent: diastolic murmur, gallop, rubs, systolic murmur - GI/Abdominal GI/Abdominal exam: Present: normal bowel sounds, soft, no peritoneal signs. Absent: distended, tenderness - Extremities Exam Extremities exam: Present: warm, radial pulses palpable and symetrical. Absent : calf tenderness, cyanotic, pedal edema - Neurological Exam Neurological exam: Present: CN II-XII intact, oriented X3, no focal deficits. Absent: pronater drift, facial droop, speech deficit - Skin Skin exam: Present: dry, intact Internal Medicine: Result - Labs CBC & Chem 7: 11/29/16 02:53 11/29/16 02:53 Labs: Short CBC 11/29/16 Range/Units 02:53 WBC 5.5 (4.3-11.1) K/mcL Hgb 7.9 L (12.9-16.9) g/dL Hct 24.2 L (37.5-50.1) % Plt Count 157 (140-400) K/mcL Neutrophils # 2.9 (1.6-8.9) K/mcL BMP 11/29/16 02:53 Sodium 140 Potassium 4.4 Chloride 109 Carbon Dioxide 24 BUN 58 H D Creatinine 3.51 H Glucose 146 H Calcium 8.2 L - ABG Interpretation ABG results: PT/INR, D-dimer PT 12.4 Seconds (9.4-12.1) H 11/22/16 18:40 - Impressions Impressions Guidance Needle Placement Ultrasound 11/28/16 00:00 IMPRESSION: 1. Right internal jugular vein tunneled dialysis catheter placement as discussed above. D/ / David Carlos MD / David Carlos MD Interpreting Provider: David Carlos MD Insertion Tunneled Catheter 11/28/16 00:00 IMPRESSION: 1. Right internal jugular vein tunneled dialysis catheter placement as discussed above. D/ / David Carlos MD / David Carlos MD Interpreting Provider: David Carlos MD Consult Discharge Plan - Plan Referrals: Ruel Veloz MD [Primary Care Provider] - 12/02/16 2:00 pm (Pleaser follow up as schedule...)
[2016-11-29] MEDS ORDERED: *HR* Heparin 10,000 UNIT/10 ML VIAL IV PRN (11:33)
[2016-11-29] MEDS ORDERED: 0.9 % Sodium Chloride 2,000 ML ONE (11:57)
[2016-11-29] MEDS: Ondansetron 4 MG/2 ML VIAL IVP PRN (12:06)
[2016-11-29] MEDS: NIFEdipine XL (24 HR) 30 MG TAB.ER.24 PO SCH (13:37)
--- NOTE | 2016-11-29 15:55 | Nephrology Progress Note ---
Date of Encounter: 11/29/16 Time of Encounter: 13:55 - Assessment and Plan (1) ESRD (end stage renal disease) Current Visit: Yes Status: Acute Will declare the pt ESRD at this point. Status post Permacath on 11/28/16. SW to help arrange a dialysis chair time. Will defer his gallbladder complaints to the primary team. HTN: earlier today I increase the clonidine dosing d/t quite elevated BPs. HR has been 50-60s, will monitor. Continue to follow a renal protective strategy. Will follow with you. Next HD is planned for Thursday, most likely Thank you. (2) Hyperkalemia Current Visit: Yes Status: Acute Will improve with HD (3) Intractable nausea and vomiting Current Visit: Yes Status: Acute As per primary. Biochemically, he would be more stable after starting HD. So if he has any surgical indications, then since he's starting dialysis, this may help bring stability for any potential future surgery or procedure. Qualifiers: Vomiting type: unspecified Qualified Code(s): R11.2 - Nausea with vomiting , unspecified (4) Nephrotic syndrome Current Visit: No Status: Acute (5) Anemia in chronic kidney disease (CKD) Current Visit: No Status: Chronic Goal Hgb is 10-11 (6) DM type 2 (diabetes mellitus, type 2) Current Visit: No Status: Chronic As per primary 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 computer terminal operator insulin use: with computer terminal operator use Chronic kidney disease stage: stage 4 (severe) Qualified Code(s): E11.22 - Type 2 diabetes mellitus with diabetic chronic kidney disease; N18.4 - Chronic kidney disease, stage 4 (severe); Z79.4 - FPC (current) use of insulin (7) Hypertension Current Visit: No Status: Chronic Increase Clonidine. See above. Qualifiers: Hypertension type: essential hypertension Qualified Code(s): I10 - Essential (primary) hypertension Subjective Principal diagnosis: N/V, renal dysfunction Interval history: Pt was s/e. He was seen after dialysis, during which he had ongoing N/V, which he had pre-existing to starting dialysis. His aunt was at the bedside and asked me if his GB is contributing to his symptoms of N/V -- I said possibly but would defer that aspect of his care to the primary team. He ate some of his sandwich he affirmed. Objective - Vital Signs Vital signs: Vital Signs Temp Pulse Resp BP Pulse Ox 11/29/16 15:51 97.9 F 68 16 147/70 90 11/29/16 12:30 98.4 F 16 169/87 11/29/16 12:25 162/80 11/29/16 12:10 160/77 11/29/16 11:55 161/77 11/29/16 11:40 157/74 11/29/16 11:25 155/79 11/29/16 11:10 164/73 11/29/16 10:55 166/74 11/29/16 10:40 160/75 11/29/16 10:25 171/77 11/29/16 10:10 181/79 11/29/16 09:55 98.4 F 16 180/75 11/29/16 07:08 98.4 F 58 18 181/72 96 11/28/16 19:44 98.4 F 74 17 162/67 95 11/28/16 17:21 179/73 11/28/16 16:21 98.3 F 73 18 211/80 95 Intake and Output 11/28/16 11/29/16 11/29/16 23:59 07:59 15:59 Intake Total 410 / 410 0 / 0 840 / 840 Output Total 180 / 180 3100 / 3100 Balance 230 / 230 0 / 0 -2260 / -2260 Intake: Oral 410 / 410 0 / 0 240 / 240 Intake, Rinseback and 600 / 600 Flushes Output: Urine 0 / 0 0 / 0 Emesis 180 / 180 Total Dialysis Output 3100 / 3100 Other: Meal Liquid diet Lunch Percent of Meal Consumed 0% 15% Blood Glucose* 191 103 125 Hemodialysis Net Fluid 2500 Removed (mL) - General Appearance General appearance: Present: well-developed, well-nourished, frail EENT: Present: ATNC, PERRL, mucous membranes moist Neck: Present: supple Respiratory: Present: clear Cardiology: Present: edema (trace to 1+ pitting pedal edema b/l ), regular rate , normal S1, normal S2 Dialysis Vascular Access: Venous Catheter (Right sided Permacath with dressing C /D/I) Gastrointestinal: Present: normoactive bowel sounds, no tenderness, no guarding Integumentary: Present: no rash, warm and dry Neurologic: Present: no asterixis, alert and oriented x3, CN 3-12 intact Musculoskeletal: Present: no deformities, no erythema, no cyanosis Psychiatric: Present: mood/affect appropriate, cooperative - Lab 11/29/16 02:53 11/29/16 02:53 Most recent lab results Calcium 8.2 mg/dL (8.6-10.8) L 11/29/16 02:53 Phosphorus 5.3 mg/dL (2.3-4.7) H 11/25/16 05:43 Magnesium 2.0 mg/dL (1.6-2.6) 11/25/16 05:43 Urine Creatinine 58 mg/dL 11/25/16 10:30 Urine Sodium 64.0 mEq/L 11/25/16 10:30 Urine Total Protein 168 mg/dL (1-14) H 11/25/16 10:30 Consult Discharge Plan - Plan Referrals: Ruel Veloz MD [Primary Care Provider] - 12/02/16 2:00 pm (Pleaser follow up as schedule...)
[2016-11-29] MEDS: Aspirin 81 MG TAB.CHEW PO SCH (21:21)
[2016-11-29] MEDS: Melatonin 3 MG TABLET PO SCH (21:22)
[2016-11-29] MEDS: Insulin DETEMIR 100 UNIT/ML X5UNITS SQ SCH (21:25)
[2016-11-30 04:17] LABS: Basophils # 0.1 K/mcL (0.0-0.2); Basophils % 0.8 %; Eosinophils # 0.8 K/mcL (0.0-0.6); Eosinophils % 11.8 %; Hematocrit 26.7 % (37.5-50.1); Hemoglobin 8.6 g/dL (12.9-16.9); Immature Granulocytes % 0.2 % (0-4); Lymphocytes # 1.9 K/mcL (0.6-4.6); Lymphocytes % 28.8 %; Mean Corpuscular HGB Conc 32.2 g/dL (31.6-35.5); Mean Corpuscular Hemoglobin 28.8 pg (28.0-33.3); Mean Corpuscular Volume 89.3 fL (83.0-100.0); Mean Platelet Volume 9.9 fL (9.4-12.4); Monocytes # 0.7 K/mcL (0.0-1.3); Monocytes % 10.1 %; Neutrophils # 3.1 K/mcL (1.6-8.9); Platelet Count 174 K/mcL (140-400); Red Blood Count 2.99 M/mcL (4.19-5.50); Red Cell Distribution Width 13.3 % (11.5-14.5); Segmented Neutrophils % 48.3 %
[2016-11-30 04:22] LABS: Calcium 8.2 mg/dL (8.6-10.8); Potassium 3.9 mEq/L (3.5-4.5)
[2016-11-30] MEDS: *HR* Heparin 5,000 UNIT/ML VIAL SQ SCH ×2 (06:10→22:57)
[2016-11-30] MEDS: Insulin LISPRO 300 UNITS/3 ML VIAL SQ SCH ×4 (08:24→22:58)
--- NOTE | 2016-11-30 08:32 | Nephrology Progress Note ---
Date of Encounter: 11/30/16 Time of Encounter: 08:45 - Assessment and Plan (1) ESRD (end stage renal disease) Current Visit: Yes Status: Acute ESRD s/p Permacath on 11/28/16. Biochemically stable today (Thursday), so will plan for the next HD to be on Thursday. SW to help arrange a dialysis chair time. Will defer his gallbladder complaints to the primary team. HTN: earlier today I increase the clonidine dosing d/t quite elevated BPs. HR has been 50-60s, will monitor. Continue to follow a renal protective strategy. Thank you. (2) Hyperkalemia Current Visit: Yes Status: Acute Improving with HD (3) Intractable nausea and vomiting Current Visit: Yes Status: Acute As per primary. Improved today Qualifiers: Vomiting type: unspecified Qualified Code(s): R11.2 - Nausea with vomiting , unspecified (4) Nephrotic syndrome Current Visit: No Status: Acute Hx of proteinuria (5) Anemia in chronic kidney disease (CKD) Current Visit: No Status: Chronic Goal Hgb is 10-11 (6) DM type 2 (diabetes mellitus, type 2) Current Visit: No Status: Chronic As per primary 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 alf insulin use: with alf use Chronic kidney disease stage: stage 4 (severe) Qualified Code(s): E11.22 - Type 2 diabetes mellitus with diabetic chronic kidney disease; N18.4 - Chronic kidney disease, stage 4 (severe); Z79.4 - retirement (current) use of insulin (7) Hypertension Current Visit: No Status: Chronic Increase Clonidine. See above. Qualifiers: Hypertension type: essential hypertension Qualified Code(s): I10 - Essential (primary) hypertension Subjective Principal diagnosis: N/V, renal dysfunction Interval history: Pt was s/e. He reported feeling better after a more restful night. He did not affirm uremic complaints. Objective - Vital Signs Vital signs: Vital Signs Temp Pulse Resp BP Pulse Ox 11/30/16 07:39 98 F 50 16 152/86 90 11/29/16 23:02 98.6 F 52 18 128/53 92 11/29/16 15:51 97.9 F 68 16 147/70 90 11/29/16 12:30 98.4 F 16 169/87 11/29/16 12:25 162/80 11/29/16 12:10 160/77 11/29/16 11:55 161/77 11/29/16 11:40 157/74 11/29/16 11:25 155/79 11/29/16 11:10 164/73 11/29/16 10:55 166/74 11/29/16 10:40 160/75 11/29/16 10:25 171/77 11/29/16 10:10 181/79 11/29/16 09:55 98.4 F 16 180/75 Intake and Output 11/29/16 11/30/16 11/30/16 23:59 07:59 15:59 Intake Total 0 / 0 0 / 0 Balance 0 / 0 0 / 0 Intake: Oral 0 / 0 0 / 0 Other: Weight 94 kg Blood Glucose* 166 97 Patient Weight 11/30/16 23:59 Weight 94 kg - General Appearance General appearance: Present: well-developed, well-nourished EENT: Present: ATNC, PERRL, mucous membranes moist Neck: Present: supple Respiratory: Present: clear Cardiology: Present: no edema, regular rate, normal S1, normal S2 Dialysis Vascular Access: Venous Catheter Additional Comments: Right Tunneled dialysis catheter, C/D/I Gastrointestinal: Present: normoactive bowel sounds, no tenderness, no guarding Integumentary: Present: no rash, warm and dry Neurologic: Present: no focal deficit, no asterixis, alert and oriented x3 Musculoskeletal: Present: no deformities, no erythema, no cyanosis Psychiatric: Present: mood/affect appropriate, cooperative - Lab 11/30/16 03:44 11/30/16 03:44 Most recent lab results Calcium 8.2 mg/dL (8.6-10.8) L 11/30/16 03:44 Phosphorus 5.3 mg/dL (2.3-4.7) H 11/25/16 05:43 Magnesium 2.0 mg/dL (1.6-2.6) 11/25/16 05:43 Urine Creatinine 58 mg/dL 11/25/16 10:30 Urine Sodium 64.0 mEq/L 11/25/16 10:30 Urine Total Protein 168 mg/dL (1-14) H 11/25/16 10:30 Consult Discharge Plan - Plan Referrals: Ruel Veloz MD [Primary Care Provider] - 12/02/16 2:00 pm (Pleaser follow up as schedule...)
[2016-11-30] MEDS: hydrALAZINE 25 MG TABLET PO SCH ×3 (09:49→21:21)
[2016-11-30] MEDS: NIFEdipine XL (24 HR) 30 MG TAB.ER.24 PO SCH (09:50)
[2016-11-30] MEDS: Ascorbic Acid 500 MG TABLET PO SCH (09:50)
[2016-11-30] MEDS: cloNIDine HCl 0.1 MG TABLET PO SCH ×3 (09:50→21:21)
[2016-11-30] MEDS: Magnesium Oxide 400 MG TABLET PO SCH ×2 (09:51→21:21)
[2016-11-30] MEDS: Pantoprazole 40 MG VIAL IVP SCH (09:51)
[2016-11-30] MEDS: Primidone 50 MG TABLET PO SCH (09:57)
[2016-11-30] MEDS: Fluticasone Propionate Nasal 50 MCG/SPRAY BOTTLE NS SCH (10:05)
--- NOTE | 2016-11-30 12:26 | Internal Med Progress Note ---
Date of Encounter: 11/30/16 Time of Encounter: 12:24 - Assessment and plan (1) ESRD (end stage renal disease) Current Visit: Yes Status: Acute Assessment and plan: started on hd, will follow nephro input. cumulative balance 5650 ml. so far total 4000 ml removed in HD. (2) Anemia Current Visit: Yes Status: Acute Assessment and plan: hb increased to 8.6 today, likely due to chronic disease. Elevated ferritin levels. Aranesp as per nephro. Tranfuse as needed. Qualifiers: Anemia type: unspecified type Qualified Code(s): D64.9 - Anemia, unspecified (3) CKD (chronic kidney disease) Current Visit: Yes Status: Acute Qualifiers: Chronic kidney disease stage: stage 4 (severe) Qualified Code(s): N18.4 - Chronic kidney disease, stage 4 (severe) (4) CAD (coronary artery disease) Current Visit: No Status: Chronic Assessment and plan: No signs of angina present at this time continue home medications Qualifiers: Coronary Disease-Associated Artery/Lesion type: [place] artery [place] vs. transplanted heart: [place] heart Associated angina: without angina Qualified Code(s): I25.10 - Atherosclerotic heart disease of [place] coronary artery without angina pectoris (5) Hypertension Current Visit: No Status: Chronic Assessment and plan: improving after hd. Qualifiers: Hypertension type: essential hypertension Qualified Code(s): I10 - Essential (primary) hypertension (6) Intractable nausea and vomiting Current Visit: Yes Status: Acute Assessment and plan: imporving, us no evidence of cholecystitis, only cholelithiasis, no fever, no leukocytosis. getting better, likely due to uremia, anticipate improvement with hd. Qualifiers: Vomiting type: unspecified Qualified Code(s): R11.2 - Nausea with vomiting , unspecified - Subjective Interval history: patient denies nausea today. feels better, in good spirits. - Constitutional Vitals: Temp Pulse Resp BP Pulse Ox 98 F 56 16 126/60 95 11/30/16 11:34 11/30/16 11:34 11/30/16 11:34 11/30/16 11:34 11/30/16 11:34 General appearance: Present: A&O X 3, no acute distress, obese, answers questions appropriately - Head Head exam: Present: atraumatic, normocephalic - Eye Eye exam: Present: PERRL, conjuntiva pink, sclera anicteric Pupils: Present: PERRL - Neck Neck exam general surgery: Present: supple, trachea midline. Absent: lymphadenopathy - Respiratory Respiratory exam: Present: CTAB. Absent: accessory muscle use, rales, rhonchi, wheezes - Cardiovascular Cardiovascular exam: Present: RRR, +S1, +S2. Absent: diastolic murmur, gallop, rubs, systolic murmur - GI/Abdominal GI/Abdominal exam: Present: normal bowel sounds, soft, no peritoneal signs. Absent: distended, tenderness - Extremities Exam Extremities exam: Present: warm, radial pulses palpable and symetrical. Absent : calf tenderness, cyanotic, pedal edema - Neurological Exam Neurological exam: Present: CN II-XII intact, oriented X3, no focal deficits. Absent: pronater drift, facial droop, speech deficit - Skin Skin exam: Present: dry, intact Internal Medicine: Result - Labs CBC & Chem 7: 11/30/16 03:44 11/30/16 03:44 Labs: Short CBC 11/30/16 Range/Units 03:44 WBC 6.4 (4.3-11.1) K/mcL Hgb 8.6 L (12.9-16.9) g/dL Hct 26.7 L (37.5-50.1) % Plt Count 174 (140-400) K/mcL Neutrophils # 3.1 (1.6-8.9) K/mcL BMP 11/30/16 03:44 Sodium 137 Potassium 3.9 Chloride 102 Carbon Dioxide 27 BUN 39 H D Creatinine 3.34 H Glucose 118 H Calcium 8.2 L - ABG Interpretation ABG results: PT/INR, D-dimer PT 12.4 Seconds (9.4-12.1) H 11/22/16 18:40 Consult Discharge Plan - Plan Referrals: Ruel Veloz MD [Primary Care Provider] - 12/02/16 2:00 pm (Pleaser follow up as schedule...)
[2016-11-30] MEDS: Aspirin 81 MG TAB.CHEW PO SCH (21:20)
[2016-11-30] MEDS: Melatonin 3 MG TABLET PO SCH (21:21)
[2016-11-30] MEDS: Insulin DETEMIR 100 UNIT/ML X5UNITS SQ SCH (22:58)
[2016-12-01 04:27] LABS: Basophils % 0.6 %; Eosinophils # 0.7 K/mcL (0.0-0.6); Eosinophils % 10.5 %; Hemoglobin 8.4 g/dL (12.9-16.9); Immature Granulocytes % 0.3 % (0-4); Lymphocytes # 1.9 K/mcL (0.6-4.6); Lymphocytes % 28.2 %; Mean Corpuscular HGB Conc 32.3 g/dL (31.6-35.5); Mean Corpuscular Volume 89.7 fL (83.0-100.0); Mean Platelet Volume 9.8 fL (9.4-12.4); Monocytes # 0.7 K/mcL (0.0-1.3); Monocytes % 10.7 %; Neutrophils # 3.3 K/mcL (1.6-8.9); Platelet Count 175 K/mcL (140-400); Red Cell Distribution Width 13.3 % (11.5-14.5); Segmented Neutrophils % 49.7 %
[2016-12-01 04:41] LABS: Calcium 8.1 mg/dL (8.6-10.8); Potassium 4.1 mEq/L (3.5-4.5)
[2016-12-01] MEDS: *HR* Heparin 5,000 UNIT/ML VIAL SQ SCH ×2 (05:45→16:45)
[2016-12-01] MEDS: Insulin LISPRO 300 UNITS/3 ML VIAL SQ SCH ×4 (07:30→22:14)
[2016-12-01] MEDS ORDERED: 0.9 % Sodium Chloride 250 ML IVC PRN (07:31)
[2016-12-01] MEDS: Primidone 50 MG TABLET PO SCH (07:39)
[2016-12-01] MEDS: Ascorbic Acid 500 MG TABLET PO SCH (07:40)
[2016-12-01] MEDS: Magnesium Oxide 400 MG TABLET PO SCH ×2 (07:40→22:13)
[2016-12-01] MEDS: Pantoprazole 40 MG VIAL IVP SCH (07:40)
[2016-12-01] MEDS: Fluticasone Propionate Nasal 50 MCG/SPRAY BOTTLE NS SCH (07:43)
[2016-12-01] MEDS: cloNIDine HCl 0.1 MG TABLET PO SCH ×3 (08:20→22:13)
[2016-12-01] MEDS: hydrALAZINE 25 MG TABLET PO SCH ×3 (08:20→22:14)
--- NOTE | 2016-12-01 09:06 | Nephrology Progress Note ---
Date of Encounter: 12/02/16 Time of Encounter: 08:15 - Assessment and Plan (1) ESRD (end stage renal disease) Current Visit: Yes Status: Acute HD today for intermittent HD every M//. ESRD s/p Permacath on 11/28/16. Biochemically stable today (Thursday), so will plan for the next HD to be on Thursday. SW to help arrange a dialysis chair time. HTN: earlier today I increase the clonidine dosing d/t quite elevated BPs. HR has been 50-60s, will monitor. Continue to follow a renal protective strategy. Thank you. (2) Hyperkalemia Current Visit: Yes Status: Acute Improving with HD (3) Intractable nausea and vomiting Current Visit: Yes Status: Acute As per primary. 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 See above. Qualifiers: Hypertension type: essential hypertension Qualified Code(s): I10 - Essential (primary) hypertension Subjective Principal diagnosis: N/V, renal dysfunction Interval history: Pt was s/e. He reported feeling better after a more restful night. He did not affirm uremic complaints. Objective - Vital Signs Vital signs: Vital Signs Temp Pulse Resp BP Pulse Ox 12/01/16 07:50 92 12/01/16 06:57 98.3 F 54 17 162/72 92 12/01/16 04:39 98.4 F 54 16 145/67 97 12/01/16 00:12 98.2 F 52 16 137/61 92 11/30/16 19:44 97.6 F 46 16 102/58 95 11/30/16 15:32 98 F 52 16 136/68 96 11/30/16 11:34 98 F 56 16 126/60 95 Intake and Output 11/30/16 12/01/16 12/01/16 23:59 07:59 15:59 Intake Total 360 / 360 100 / 100 Output Total 575 / 575 Balance 360 / 360 -475 / -475 Intake: Oral 360 / 360 100 / 100 Output: Urine 575 / 575 Other: Meal Dinner Percent of Meal Consumed 100% Weight 94 kg Blood Glucose* 270 109 Patient Weight 12/01/16 23:59 Weight 94 kg - General Appearance General appearance: Present: well-developed, well-nourished, appears started age EENT: Present: ATNC, PERRL, mucous membranes moist Neck: Present: supple Respiratory: Present: clear Cardiology: Present: no edema, regular rate, regular rhythm, normal S1, normal S2 Gastrointestinal: Present: normoactive bowel sounds, no tenderness Integumentary: Present: no rash, warm and dry Neurologic: Present: no focal deficit, no asterixis, alert and oriented x3 Musculoskeletal: Present: no deformities, no clubbing - Lab 12/01/16 03:23 12/01/16 03:23 Most recent lab results Calcium 8.1 mg/dL (8.6-10.8) L 12/01/16 03:23 Phosphorus 5.3 mg/dL (2.3-4.7) H 11/25/16 05:43 Magnesium 2.0 mg/dL (1.6-2.6) 11/25/16 05:43 Urine Creatinine 58 mg/dL 11/25/16 10:30 Urine Sodium 64.0 mEq/L 11/25/16 10:30 Urine Total Protein 168 mg/dL (1-14) H 11/25/16 10:30 Consult Discharge Plan - Plan Referrals: Ruel Vleoz MD [Primary Care Provider] - 12/09/16 2:00 pm (Pleaser follow up as schedule...)
--- NOTE | 2016-12-01 11:11 | Internal Med Progress Note ---
Date of Encounter: 12/01/16 Time of Encounter: 11:08 - Assessment and plan (1) ESRD (end stage renal disease) Current Visit: Yes Status: Acute Assessment and plan: started on hd, will follow nephro input. cumulative balance 5645 ml. hd as per nephrology. will start processfor outpatient hd and ischarge process. follow with soc[facility] services. patient needs placement. (2) Anemia Current Visit: Yes Status: Acute Assessment and plan: hb increased to 8.6 today, likely due to chronic disease. Elevated ferritin levels. Aranesp as per nephro. Tranfuse as needed. Qualifiers: Anemia type: unspecified type Qualified Code(s): D64.9 - Anemia, unspecified (3) CKD (chronic kidney disease) Current Visit: Yes Status: Acute Qualifiers: Chronic kidney disease stage: stage 4 (severe) Qualified Code(s): N18.4 - Chronic kidney disease, stage 4 (severe) (4) CAD (coronary artery disease) Current Visit: No Status: Chronic Assessment and plan: No signs of angina present at this time continue home medications Qualifiers: Coronary Disease-Associated Artery/Lesion type: [place] artery [place] vs. transplanted heart: [place] heart Associated angina: without angina Qualified Code(s): I25.10 - Atherosclerotic heart disease of [place] coronary artery without angina pectoris (5) Hypertension Current Visit: No Status: Chronic Qualifiers: Hypertension type: essential hypertension Qualified Code(s): I10 - Essential (primary) hypertension (6) Intractable nausea and vomiting Current Visit: Yes Status: Acute Assessment and plan: imporving, us no evidence of cholecystitis, only cholelithiasis, no fever, no leukocytosis. getting better, likely due to uremia, anticipate improvement with hd. will have the patietnt see a surgeon as outpatient. Qualifiers: Vomiting type: unspecified Qualified Code(s): R11.2 - Nausea with vomiting , unspecified - Subjective Interval history: patient denies nausea today. feels better, in good spirits, was seen while in the HD unit. . - Constitutional Vitals: Temp Pulse Resp BP Pulse Ox 98.3 F 54 17 162/72 92 12/01/16 06:57 12/01/16 06:57 12/01/16 06:57 12/01/16 06:57 12/01/16 07:50 General appearance: Present: A&O X 3, no acute distress, obese, answers questions appropriately - Head Head exam: Present: atraumatic, normocephalic - Eye Eye exam: Present: PERRL, conjuntiva pink, sclera anicteric Pupils: Present: PERRL - Neck Neck exam general surgery: Present: supple, trachea midline. Absent: lymphadenopathy - Respiratory Respiratory exam: Present: CTAB. Absent: accessory muscle use, rales, rhonchi, wheezes - Cardiovascular Cardiovascular exam: Present: RRR, +S1, +S2. Absent: diastolic murmur, gallop, rubs, systolic murmur - GI/Abdominal GI/Abdominal exam: Present: normal bowel sounds, soft, no peritoneal signs. Absent: distended, tenderness - Extremities Exam Extremities exam: Present: warm, radial pulses palpable and symetrical. Absent : calf tenderness, cyanotic, pedal edema - Neurological Exam Neurological exam: Present: CN II-XII intact, oriented X3, no focal deficits. Absent: pronater drift, facial droop, speech deficit - Skin Skin exam: Present: dry, intact Internal Medicine: Result - Labs CBC & Chem 7: 12/01/16 03:23 12/01/16 03:23 Labs: Short CBC 12/01/16 Range/Units 03:23 WBC 6.6 (4.3-11.1) K/mcL Hgb 8.4 L (12.9-16.9) g/dL Hct 26.0 L (37.5-50.1) % Plt Count 175 (140-400) K/mcL Neutrophils # 3.3 (1.6-8.9) K/mcL BMP 12/01/16 03:23 Sodium 137 Potassium 4.1 Chloride 102 Carbon Dioxide 26 BUN 49 H D Creatinine 4.22 H Glucose 84 Calcium 8.1 L - ABG Interpretation ABG results: PT/INR, D-dimer PT 12.4 Seconds (9.4-12.1) H 11/22/16 18:40 Consult Discharge Plan - Plan Referrals: Ruel Veloz MD [Primary Care Provider] - 12/02/16 2:00 pm (Pleaser follow up as schedule...)
[2016-12-01] MEDS ORDERED: Acetaminophen 325 MG TABLET PO PRN (12:43)
[2016-12-01] MEDS ORDERED: *HR* HYDROcodone/Acet 5/325 mg TABLET PO PRN (12:43)
[2016-12-01] MEDS ORDERED: *HR* Heparin 10,000 UNIT/10 ML VIAL IV PRN (12:49)
[2016-12-01] MEDS ORDERED: 0.9 % Sodium Chloride 2,000 ML ONE (13:11)
[2016-12-01] MEDS: NIFEdipine XL (24 HR) 30 MG TAB.ER.24 PO SCH (14:31)
[2016-12-01] MEDS: *HR* Labetalol 20 MG/4 ML SYRINGE IVP PRN (16:17)
[2016-12-01] MEDS: Aspirin 81 MG TAB.CHEW PO SCH (22:14)
[2016-12-01] MEDS: Melatonin 3 MG TABLET PO SCH (22:14)
[2016-12-01] MEDS: Insulin DETEMIR 100 UNIT/ML X5UNITS SQ SCH (22:19)
[2016-12-02 05:24] LABS: Basophils % 0.6 %; Eosinophils # 0.6 K/mcL (0.0-0.6); Eosinophils % 8.6 %; Hematocrit 25.6 % (37.5-50.1); Hemoglobin 8.4 g/dL (12.9-16.9); Immature Granulocytes % 0.3 % (0-4); Lymphocytes # 1.6 K/mcL (0.6-4.6); Lymphocytes % 23.4 %; Mean Corpuscular HGB Conc 32.8 g/dL (31.6-35.5); Mean Corpuscular Hemoglobin 29.4 pg (28.0-33.3); Mean Corpuscular Volume 89.5 fL (83.0-100.0); Monocytes # 0.9 K/mcL (0.0-1.3); Monocytes % 13.5 %; Neutrophils # 3.6 K/mcL (1.6-8.9); Platelet Count 174 K/mcL (140-400); Red Blood Count 2.86 M/mcL (4.19-5.50); Red Cell Distribution Width 13.4 % (11.5-14.5); Segmented Neutrophils % 53.6 %
[2016-12-02 05:39] LABS: Potassium 4.1 mEq/L (3.5-4.5)
[2016-12-02] MEDS: *HR* Heparin 5,000 UNIT/ML VIAL SQ SCH ×2 (06:11→17:19)
--- NOTE | 2016-12-02 08:13 | Nephrology Progress Note ---
Date of Encounter: 12/02/16 Time of Encounter: 08:11 - Assessment and Plan (1) ESRD (end stage renal disease) on dialysis Current Visit: Yes Status: Acute Plan for HD tomorrow Waiting for chair time at [facility] Continue renal diet Avoid nephrotoxins (2) Anemia Current Visit: Yes Status: Acute Stable at 8.4 Goal hgb 10-11 Qualifiers: Anemia type: unspecified type Qualified Code(s): D64.9 - Anemia, unspecified (3) DM type 2 (diabetes mellitus, type 2) Current Visit: No Status: Chronic per primary team 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 Sitting up on side of bed, just finished his breakfast. States he is feeling well but still very weak. Objective - Vital Signs Vital signs: Vital Signs Temp Pulse Resp BP Pulse Ox 12/02/16 06:57 98.0 F 53 16 141/65 94 12/02/16 03:20 98.0 F 52 15 146/64 94 12/01/16 23:17 98.9 F 57 16 124/63 95 12/01/16 19:33 98.3 F 61 17 146/55 93 12/01/16 18:02 124/64 12/01/16 15:57 98 F 57 18 181/81 95 12/01/16 13:18 98.1 F 18 183/77 12/01/16 13:00 180/80 12/01/16 12:45 188/84 12/01/16 12:30 182/77 12/01/16 12:15 180/78 12/01/16 12:00 181/81 12/01/16 11:45 171/75 12/01/16 11:37 97.8 F 59 17 181/78 95 12/01/16 11:30 193/83 12/01/16 11:15 188/82 12/01/16 11:00 189/84 12/01/16 10:45 166/77 12/01/16 10:30 172/75 12/01/16 10:15 157/72 12/01/16 10:00 98.1 F 18 172/76 Intake and Output 12/01/16 12/02/16 12/02/16 23:59 07:59 15:59 Intake Total 120 / 120 Output Total 400 / 400 Balance -280 / -280 Intake: Oral 120 / 120 Output: Urine 400 / 400 Other: Meal Dinner Percent of Meal Consumed 95% # Voids 1 Weight 94.5 kg Blood Glucose* 239 64 Patient Weight 12/02/16 23:59 Weight 94.5 kg - General Appearance General appearance: Present: well-developed, well-nourished EENT: Present: ATNC, mucous membranes moist, hearing intact, vision intact Neck: Present: supple Respiratory: Present: clear Cardiology: Present: no edema, normal S1, normal S2 Gastrointestinal: Present: no tenderness, no guarding Integumentary: Present: warm and dry Neurologic: Present: alert and oriented x3 Psychiatric: Present: mood/affect appropriate, cooperative - Lab 12/02/16 04:17 12/02/16 04:17 Most recent lab results Calcium 8.0 mg/dL (8.6-10.8) L 12/02/16 04:17 Phosphorus 5.3 mg/dL (2.3-4.7) H 11/25/16 05:43 Magnesium 2.0 mg/dL (1.6-2.6) 11/25/16 05:43 Urine Creatinine 58 mg/dL 11/25/16 10:30 Urine Sodium 64.0 mEq/L 11/25/16 10:30 Urine Total Protein 168 mg/dL (1-14) H 11/25/16 10:30 - VTE Documentation of Mechanical Device: Intermittent pneumatic compression device Consult Discharge Plan - Plan Referrals: Ruel Veloz MD [Primary Care Provider] - 12/09/16 2:00 pm (Pleaser follow up as schedule...)
[2016-12-02] MEDS: Insulin LISPRO 300 UNITS/3 ML VIAL SQ SCH ×4 (08:43→22:33)
[2016-12-02] MEDS: NIFEdipine XL (24 HR) 30 MG TAB.ER.24 PO SCH (08:46)
[2016-12-02] MEDS: cloNIDine HCl 0.1 MG TABLET PO SCH ×3 (08:47→22:43)
[2016-12-02] MEDS: hydrALAZINE 25 MG TABLET PO SCH ×3 (08:47→22:43)
[2016-12-02] MEDS: Ascorbic Acid 500 MG TABLET PO SCH (08:47)
[2016-12-02] MEDS: Magnesium Oxide 400 MG TABLET PO SCH ×2 (08:48→22:43)
[2016-12-02] MEDS: Primidone 50 MG TABLET PO SCH (08:48)
[2016-12-02] MEDS: Fluticasone Propionate Nasal 50 MCG/SPRAY BOTTLE NS SCH (08:49)
[2016-12-02] MEDS: Darbepoetin 100 MCG/0.5 ML SYRINGE SQ SCH (12:16)
--- NOTE | 2016-12-02 16:27 | Internal Med Progress Note ---
Date of Encounter: 12/02/16 Time of Encounter: 11:40 - Assessment and plan (1) ESRD (end stage renal disease) Current Visit: Yes Status: Acute Assessment and plan: started on hd, awaiting chair time for continuity of outpatient HD. 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 hd as per nephrology. D/W patient. patient needs placement. (2) Anemia Current Visit: Yes Status: Acute Assessment and plan: hb stable, anemia likely due to chronic disease. Elevated ferritin levels. Aranesp as per nephro. Tranfuse as needed. Qualifiers: Anemia type: unspecified type Qualified Code(s): D64.9 - Anemia, unspecified (3) CKD (chronic kidney disease) Current Visit: Yes Status: Acute Qualifiers: Chronic kidney disease stage: stage 4 (severe) Qualified Code(s): N18.4 - Chronic kidney disease, stage 4 (severe) (4) CAD (coronary artery disease) Current Visit: No Status: Chronic Qualifiers: Coronary Disease-Associated Artery/Lesion type: [place] artery [place] vs. transplanted heart: [place] heart Associated angina: without angina Qualified Code(s): I25.10 - Atherosclerotic heart disease of [place] coronary artery without angina pectoris (5) Hypertension Current Visit: No Status: Chronic Assessment and plan: improving after hd. will continue monitoring. Qualifiers: Hypertension type: essential hypertension Qualified Code(s): I10 - Essential (primary) hypertension (6) Intractable nausea and vomiting Current Visit: Yes Status: Acute Assessment and plan: resolved, us no evidence of cholecystitis, only cholelithiasis, no fever, no leukocytosis. getting better, likely due to uremia, anticipate improvement with hd. will have the patietnt see a surgeon as outpatient. Qualifiers: Vomiting type: unspecified Qualified Code(s): R11.2 - Nausea with vomiting , unspecified - Subjective Interval history: patient denies nausea today. feels better, in good spirits. no fever. - Constitutional Vitals: Temp Pulse Resp BP Pulse Ox 97.8 F 52 16 105/47 92 12/02/16 15:05 12/02/16 15:05 12/02/16 15:05 12/02/16 15:14 12/02/16 15:05 General appearance: Present: A&O X 3, no acute distress, obese, answers questions appropriately - Head Head exam: Present: atraumatic, normocephalic - Eye Eye exam: Present: PERRL, conjuntiva pink, sclera anicteric Pupils: Present: PERRL - Neck Neck exam general surgery: Present: supple, trachea midline. Absent: lymphadenopathy - Respiratory Respiratory exam: Present: decreased breath sounds. Absent: accessory muscle use, rales, rhonchi, wheezes - Cardiovascular Cardiovascular exam: Present: RRR, +S1, +S2. Absent: diastolic murmur, gallop, rubs, systolic murmur - GI/Abdominal GI/Abdominal exam: Present: normal bowel sounds, soft, no peritoneal signs. Absent: distended, tenderness - Extremities Exam Extremities exam: Present: warm, radial pulses palpable and symetrical. Absent : calf tenderness, cyanotic, pedal edema - Neurological Exam Neurological exam: Present: CN II-XII intact, oriented X3, no focal deficits. Absent: pronater drift, facial droop, speech deficit - Skin Skin exam: Present: dry, intact Internal Medicine: Result - Labs CBC & Chem 7: 12/02/16 04:17 12/02/16 04:17 Labs: Short CBC 12/02/16 Range/Units 04:17 WBC 6.8 (4.3-11.1) K/mcL Hgb 8.4 L (12.9-16.9) g/dL Hct 25.6 L (37.5-50.1) % Plt Count 174 (140-400) K/mcL Neutrophils # 3.6 (1.6-8.9) K/mcL BMP 12/02/16 04:17 Sodium 136 Potassium 4.1 Chloride 99 Carbon Dioxide 29 BUN 33 H D Creatinine 3.21 H Glucose 104 H Calcium 8.0 L - ABG Interpretation ABG results: PT/INR, D-dimer PT 12.4 Seconds (9.4-12.1) H 11/22/16 18:40 - VTE Documentation of Mechanical Device: Intermittent pneumatic compression device Consult Discharge Plan - Plan Referrals: Ruel Veloz MD [Primary Care Provider] - 12/09/16 2:00 pm (Pleaser follow up as schedule...)
[2016-12-02] MEDS: Melatonin 3 MG TABLET PO SCH (22:43)
[2016-12-02] MEDS: Aspirin 81 MG TAB.CHEW PO SCH (22:44)
[2016-12-02] MEDS: Insulin DETEMIR 100 UNIT/ML X5UNITS SQ SCH (22:44)
[2016-12-03 04:45] LABS: Basophils % 0.6 %; Eosinophils # 0.6 K/mcL (0.0-0.6); Hematocrit 26.7 % (37.5-50.1); Hemoglobin 8.5 g/dL (12.9-16.9); Immature Granulocytes % 0.3 % (0-4); Lymphocytes # 1.7 K/mcL (0.6-4.6); Lymphocytes % 24.1 %; Mean Corpuscular HGB Conc 31.8 g/dL (31.6-35.5); Mean Corpuscular Hemoglobin 28.8 pg (28.0-33.3); Mean Corpuscular Volume 90.5 fL (83.0-100.0); Mean Platelet Volume 9.7 fL (9.4-12.4); Monocytes # 0.7 K/mcL (0.0-1.3); Monocytes % 10.6 %; Neutrophils # 3.9 K/mcL (1.6-8.9); Platelet Count 185 K/mcL (140-400); Red Blood Count 2.95 M/mcL (4.19-5.50); Red Cell Distribution Width 13.5 % (11.5-14.5); Segmented Neutrophils % 55.4 %
[2016-12-03 05:01] LABS: Calcium 8.2 mg/dL (8.6-10.8); Potassium 4.4 mEq/L (3.5-4.5)
[2016-12-03] MEDS: *HR* Heparin 5,000 UNIT/ML VIAL SQ SCH (06:22)
[2016-12-03] MEDS ORDERED: 0.9 % Sodium Chloride 250 ML IVC PRN (07:47)
[2016-12-03] MEDS: Insulin LISPRO 300 UNITS/3 ML VIAL SQ SCH ×2 (07:56→11:49)
[2016-12-03] MEDS: Primidone 50 MG TABLET PO SCH (07:58)
[2016-12-03] MEDS: Magnesium Oxide 400 MG TABLET PO SCH (07:59)
[2016-12-03] MEDS: Fluticasone Propionate Nasal 50 MCG/SPRAY BOTTLE NS SCH (07:59)
[2016-12-03] MEDS: Ascorbic Acid 500 MG TABLET PO SCH (07:59)
--- NOTE | 2016-12-03 10:18 | Discharge Summary ---
Date of Encounter: 12/03/16 Time of Encounter: 10:14 - Discharge Diagnosis (1) ESRD (end stage renal disease) Priority: Primary Status: Acute (2) Anemia Priority: Secondary Status: Acute Qualifiers: Anemia type: unspecified type Qualified Code(s): D64.9 - Anemia, unspecified (3) CKD (chronic kidney disease) Priority: Secondary Status: Acute Qualifiers: Chronic kidney disease stage: stage 4 (severe) Qualified Code(s): N18.4 - Chronic kidney disease, stage 4 (severe) (4) CAD (coronary artery disease) Priority: Secondary Status: Chronic Qualifiers: Coronary Disease-Associated Artery/Lesion type: [place] artery [place] vs. transplanted heart: [place] heart Associated angina: without angina Qualified Code(s): I25.10 - Atherosclerotic heart disease of [place] coronary artery without angina pectoris (5) Hypertension Priority: Secondary Status: Chronic Qualifiers: Hypertension type: essential hypertension Qualified Code(s): I10 - Essential (primary) hypertension (6) Intractable nausea and vomiting Priority: Secondary Status: Acute Qualifiers: Vomiting type: unspecified Qualified Code(s): R11.2 - Nausea with vomiting , unspecified - Discharge Medications Prescriptions: cloNIDine HCl [CloNIDine HCl] 0.3 mg PO TID 30 Days hydrALAZINE [HydrALAZINE] 100 mg PO TID 30 Days NIFEdipine XL (24 HR) [Procardia XL] 90 mg PO DAILY #30 tab.er.24 Home Medications: Atorvastatin [Lipitor] 40 mg PO HS 03/16/15 [History] Cholecalciferol (Vitamin D3) [Vitamin D3] 50,000 unit PO SUWE 03/16/15 [History] Sertraline [Zoloft] 100 mg PO HS 03/16/15 [History] Dicyclomine [Bentyl] 10 mg PO TID #90 capsule 03/30/15 [Rx] Primidone [Mysoline] 75 mg PO DAILY 03/31/16 [History] Ascorbic Acid [Vitamin C] 500 mg PO DAILY #30 tablet 04/25/16 [Rx] Terazosin [Hytrin] 5 mg PO HS #60 capsule 06/28/16 [Rx] Acetaminophen [Tylenol] 650 mg PO Q6HR PRN 09/05/16 [History] Fluticasone Propionate Nasal [Flonase] 1 spr NS DAILY PRN 09/05/16 [History] Zolpidem [Ambien] 5 mg PO HS PRN 09/05/16 [History] Aspirin 81 mg PO HS 11/09/16 [History] Ferrous Sulfate 650 mg PO DAILY 11/09/16 [History] Promethazine HCl 12.5 mg PO TID PRN 11/09/16 [History] NIFEdipine XL (24 HR) [Procardia XL] 90 mg PO DAILY #30 tab.er.24 12/03/16 [Rx] cloNIDine HCl [CloNIDine HCl] 0.3 mg PO TID 30 Days 12/03/16 [Rx] hydrALAZINE [HydrALAZINE] 100 mg PO TID 30 Days 12/03/16 [Rx] Allergies/Adverse Reactions: Allergies metoclopramide [From Reglan] Allergy (Intermediate, Verified 11/22/16 17:04) See Comments TREMORS Date of admission: 11/26/16 15:38 Primary care physician: Ruel Veloz MD Consults: 11/28/16 07:10 Consult to Interventional Radiology [CONS] Routine Consulting Provider: Radiology Interventional Cols Reason for Consult: Please evaluate for placement of a Permacath. Thank you. Call Completed: Yes 11/28/16 07:30 Consult to Dialysis [CONS] ONCE 11/29/16 06:15 Consult to Dialysis [CONS] ONCE 12/01/16 03:37 Consult to Wound Care [CONS] Routine Reason for Consult: WOUND R HEEL Call Completed: No 12/01/16 07:45 Consult to Dialysis [CONS] ONCE 12/01/16 09:39 Consult to Enrobing Machine Feeder [CONS] Routine Reason for SW Consult: dialysis chair time 12/03/16 08:00 Consult to Dialysis [CONS] ONCE Discharging clinician: Tylor Larkin Anticipated date of discharge: 12/03/16 - Patient Status Disposition: Transfer SNF Condition: Fair Functional capacity at discharge: uses cane/walker Overall status at discharge: patient is progressing back to baseline - Discharge Instructions Follow Up With: Ruel Veloz MD [Primary Care Provider] - 12/09/16 2:00 pm (Pleaser follow up as schedule...) Additional Instructions: PCP. Surgery follow up for gallstones. Nephrology follow up. Continuity of HD - Diet and Activity Activity: as per physical therapy Diet: other (Renal) Interval History: Mr. French is a 61 year old male, PMH HTN, anemia, CKD IV, DM, CABAGx2, presents with generalized weakness. He has been feeling weak for >3M. Brought in today because family members thought it was time to have it evaluated because his weakness is getting worse. He was worked up for anemia on 11/09/16. Patient admits to lower abdominal pain and mild headache, which are both chronic. Has long standing constipation. Denies blurry vision, CP, SOB, black tarry stools, hematuria or urinary problems. Admits to parasthesias that are chronic from long standing DM. Is not on home oxygen. Has home health aid and family close by. Is ambulatory and denies FND, confusion. Hospital course: Mr. French is a 61 year old male admitted eu to uremia and worsening renal function tests and symptmatic anemia with uncontrolled hypetension. He imprved signficantly after HD was started and is on ESRD and chronic HD now, he hwas a permacath for HD access. His bp is still elevated bu has improved and i anticipate will continue to improve with meds and HD. He was founf to have gallstones, however no cholecystitis, no fever, no elevated WBC, nausea resolved after 3 HD sessions. Will recommend and OP follow up with suregry. Continut ith HD nd aranesp as per Nephrology. He did receive 1 unit of prbc while inhouse. D/C to SNF as recommened by PT, no chest pain no shortness of breath, patient is otherwse stable for discharge. HD arangements as per social studies teacher. - Time Spent with Patient Total time spent providing and/or coordinating discharge services: - Constitutional Vitals: Temp Pulse Resp BP Pulse Ox 98.3 F 57 14 171/78 94 12/03/16 07:50 12/03/16 07:50 12/03/16 07:50 12/03/16 07:50 12/03/16 07:50 General appearance: Present: A&O X 3, no acute distress, obese, answers questions appropriately - Head Head exam: Present: atraumatic, normocephalic - Eye Eye exam: Present: PERRL, conjuntiva pink, sclera anicteric Pupils: Present: PERRL - Neck Neck exam general surgery: Present: supple, trachea midline. Absent: lymphadenopathy - Respiratory Respiratory exam: Present: CTAB. Absent: accessory muscle use, rales, rhonchi, wheezes - Cardiovascular Cardiovascular exam: Present: RRR, +S1, +S2. Absent: diastolic murmur, gallop, rubs, systolic murmur - GI/Abdominal GI/Abdominal exam: Present: normal bowel sounds, soft, no peritoneal signs. Absent: distended, tenderness - Extremities Exam Extremities exam: Present: warm, radial pulses palpable and symetrical. Absent : calf tenderness, cyanotic, pedal edema - Neurological Exam Neurological exam: Present: CN II-XII intact, oriented X3, no focal deficits. Absent: pronater drift, facial droop, speech deficit - Skin Skin exam: Present: dry, intact - VTE Documentation of Mechanical Device: Intermittent pneumatic compression device
--- NOTE | 2016-12-03 10:30 | Physician Discharge Referral ---
[facility] Referral Info Transfer To: [facility] - Diagnosis (1) ESRD (end stage renal disease) Status: Acute (2) Anemia Status: Acute (3) CKD (chronic kidney disease) Status: Acute (4) CAD (coronary artery disease) Status: Chronic (5) Hypertension Status: Chronic (6) Intractable nausea and vomiting Status: Acute - Transfer Medications Prescriptions: cloNIDine HCl [CloNIDine HCl] 0.3 mg PO TID 30 Days hydrALAZINE [HydrALAZINE] 100 mg PO TID 30 Days NIFEdipine XL (24 HR) [Procardia XL] 90 mg PO DAILY #30 tab.er.24 Home Medications: Atorvastatin [Lipitor] 40 mg PO HS 03/16/15 [History] Cholecalciferol (Vitamin D3) [Vitamin D3] 50,000 unit PO SUWE 03/16/15 [History] Sertraline [Zoloft] 100 mg PO HS 03/16/15 [History] Dicyclomine [Bentyl] 10 mg PO TID #90 capsule 03/30/15 [Rx] Primidone [Mysoline] 75 mg PO DAILY 03/31/16 [History] Ascorbic Acid [Vitamin C] 500 mg PO DAILY #30 tablet 04/25/16 [Rx] Terazosin [Hytrin] 5 mg PO HS #60 capsule 06/28/16 [Rx] Acetaminophen [Tylenol] 650 mg PO Q6HR PRN 09/05/16 [History] Fluticasone Propionate Nasal [Flonase] 1 spr NS DAILY PRN 09/05/16 [History] Zolpidem [Ambien] 5 mg PO HS PRN 09/05/16 [History] Aspirin 81 mg PO HS 11/09/16 [History] Ferrous Sulfate 650 mg PO DAILY 11/09/16 [History] Promethazine HCl 12.5 mg PO TID PRN 11/09/16 [History] NIFEdipine XL (24 HR) [Procardia XL] 90 mg PO DAILY #30 tab.er.24 12/03/16 [Rx] cloNIDine HCl [CloNIDine HCl] 0.3 mg PO TID 30 Days 12/03/16 [Rx] hydrALAZINE [HydrALAZINE] 100 mg PO TID 30 Days 12/03/16 [Rx] Allergies/Adverse Reactions: Allergies metoclopramide [From Reglan] Allergy (Intermediate, Verified 11/22/16 17:04) See Comments TREMORS - Respiratory Orders Oxygen / L per min (2) Smoking Cessation: Smoking cessation has been advised. For more information, call the [place] Tobacco Quit Line at 2-782-MUDZ-NOW. - Advance Directives Code Status: Full Code - Mobility Orders Other (as per PT) - Rehabiliation Orders Rehab Potential: Fair Rehab Orders: ROM Exercises, Evaluation for Physical Therapy, Evaluation for Occupational Therapy - Diet Orders Renal CERTIFICATION: I certify that the transfer of the above named patient to an Extended Care Facility is necessary for the continuing treatment of the diagnosis listed. The above information is true and accurate reflection of patient's current condition. Confidential - Redisclosure prohibited without a patient's written consent.
--- NOTE | 2016-12-03 10:55 | Nephrology Progress Note ---
Date of Encounter: 12/03/16 Time of Encounter: 09:45 - Assessment and Plan (1) ESRD (end stage renal disease) Status: Acute HD today for intermittent HD every M/W/. ESRD s/p Permacath on 11/28/16. Biochemically stable today (Thursday), so will plan for the next HD to be on Thursday. SW to help arrange a dialysis chair time. HTN: Will continue to titrate as an outpt. Will monitor HR; has been 50-60s, will monitor. Continue to follow a renal protective strategy. Thank you. (2) Hyperkalemia Status: Acute Improving with HD (3) Intractable nausea and vomiting Status: Acute As per primary. Resolved. Suspect it was secondary to uremia. Qualifiers: Vomiting type: unspecified Qualified Code(s): R11.2 - Nausea with vomiting , unspecified (4) Nephrotic syndrome Status: Acute Hx of proteinuria (5) Anemia in chronic kidney disease (CKD) Status: Chronic Goal Hgb is 10-11 (6) DM type 2 (diabetes mellitus, type 2) Status: Chronic As per primary 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 long term care pharmacist insulin use: with long term care pharmacist use Chronic kidney disease stage: stage 4 (severe) Qualified Code(s): E11.22 - Type 2 diabetes mellitus with diabetic chronic kidney disease; N18.4 - Chronic kidney disease, stage 4 (severe); Z79.4 - alf (current) use of insulin (7) Hypertension Status: Chronic Increase Clonidine. See above. Qualifiers: Hypertension type: essential hypertension Qualified Code(s): I10 - Essential (primary) hypertension Subjective Principal diagnosis: N/V, renal dysfunction Interval history: Pt was s/e. He was seen while on HD. He did not affirm N/V/D or cramping. He said he is getting discharged to an ECF. Objective - Vital Signs Vital signs: Vital Signs Temp Pulse Resp BP Pulse Ox 12/03/16 07:50 98.3 F 57 14 171/78 94 12/03/16 05:04 97.7 F 56 17 179/76 92 12/03/16 00:29 98.6 F 63 16 163/77 92 12/02/16 19:35 98.4 F 57 16 151/66 94 12/02/16 15:14 105/47 12/02/16 15:05 97.8 F 52 16 95/55 92 12/02/16 12:16 132/70 Intake and Output 12/02/16 12/03/16 12/03/16 23:59 07:59 15:59 Intake Total 480 / 480 Output Total 500 / 500 Balance -20 / -20 Intake: Oral 480 / 480 Output: Urine 500 / 500 Other: Meal Breakfast Percent of Meal Consumed 100% Weight 94.8 kg Blood Glucose* 160 120 Patient Weight 12/03/16 23:59 Weight 94.8 kg - General Appearance General appearance: Present: well-developed, well-nourished, frail EENT: Present: ATNC, PERRL Neck: Present: supple Respiratory: Present: clear Cardiology: Present: no edema, regular rate, regular rhythm, normal S1, normal S2 Dialysis Vascular Access: Arteriovenous Fistula (left forearm AVF, small) Additional Comments: He also has a Rt Tunneled dialysis catheter Gastrointestinal: Present: normoactive bowel sounds, no tenderness, no guarding Integumentary: Present: no rash, warm and dry Neurologic: Present: no focal deficit, no asterixis, alert and oriented x3 Musculoskeletal: Present: no deformities, no erythema Psychiatric: Present: cooperative - Lab 12/03/16 04:26 12/03/16 04:26 Most recent lab results Calcium 8.2 mg/dL (8.6-10.8) L 12/03/16 04:26 Phosphorus 5.3 mg/dL (2.3-4.7) H 11/25/16 05:43 Magnesium 2.0 mg/dL (1.6-2.6) 11/25/16 05:43 Urine Creatinine 58 mg/dL 11/25/16 10:30 Urine Sodium 64.0 mEq/L 11/25/16 10:30 Urine Total Protein 168 mg/dL (1-14) H 11/25/16 10:30 - VTE Documentation of Mechanical Device: Intermittent pneumatic compression device Consult Discharge Plan - Plan Additional Instructions: PCP. Surgery follow up for gallstones. Nephrology follow up. Continuity of HD Referrals: Ruel Veloz MD [Primary Care Provider] - 12/09/16 2:00 pm (Pleaser follow up as schedule...) Prescriptions: cloNIDine HCl [CloNIDine HCl] 0.3 mg PO TID 30 Days hydrALAZINE [HydrALAZINE] 100 mg PO TID 30 Days NIFEdipine XL (24 HR) [Procardia XL] 90 mg PO DAILY #30 tab.er.24
[2016-12-03] MEDS ORDERED: *HR* Heparin 10,000 UNIT/10 ML VIAL IV PRN (12:14)
[2016-12-03] MEDS ORDERED: 0.9 % Sodium Chloride 2,000 ML ONE (12:27)
[2016-12-03 13:10] VITALS: BP 163/71
[2016-12-03] MEDS: cloNIDine HCl 0.1 MG TABLET PO SCH (14:02)
[2016-12-03] MEDS: hydrALAZINE 25 MG TABLET PO SCH ×2 (14:02→14:10)
[2016-12-03] MEDS: NIFEdipine XL (24 HR) 30 MG TAB.ER.24 PO SCH (14:10)
== END 2016-12-03 16:23 | DRG 291 ==
LOC: 2ANU 16:35 → EMEROO 16:35 → SUATTDRO 21:36 → 2ANU 22:12
PROVIDERS: ADMIT Internal Medicine; ATTEND Internal Medicine
PROC: IRPERMA (2016-11-28 13:00)

== ENCOUNTER 2018-01-10 14:31 | Observation (INO) ==
[2018-01-10] MEDS ORDERED: Isovue-370 500 ML INFUS..BTL IV ONE (14:49)
--- NOTE | 2018-01-10 14:53 | Emergency Department Note ---
Disposition Clinical Impression: Pleural effusion Dyspnea Qualifiers: Dyspnea type: dyspnea on exertion Qualified Code(s): R06.09 - Other forms of dyspnea Chronic kidney disease (CKD) Qualifiers: Chronic kidney disease stage: on chronic dialysis Qualified Code(s): N18.6 - End stage renal disease; Z99.2 - Dependence on renal dialysis Disposition: Admitted As Inpatient Condition: Fair Referrals: Ruel Veloz MD [Primary Care Provider] - Forms: ED Satisfaction Letter Time of Disposition: 16:15 SOB HPI - General Chief Complaint: ED Shortness of Breath/Dyspnea Stated Complaint: Shortness of Breath Time Seen by Provider: 01/10/18 14:38 Source: patient, family Mode of arrival: wheelchair Limitations: no limitations Nursing Notes Reviewed: Yes Vital Signs Reviewed: Yes - History of Present Illness Patient has felt intermittently dyspneic over the past several weeks. Dyspnea with exertion to the point where he gets weak and has to lean up against an object. He denies exertional chest pain. He denies dyspnea from rest. He does note a nonproductive cough without fevers. Subjectively he has experienced similar symptoms 2-3 years ago when he was diagnosed with a pulmonary embolism. He does not currently take anticoagulants Pt Subjective Complaint: shortness of breath Onset (ago): week(s) Worsens with: exertion Associated symptoms: Reports: cough Treatment prior to arrival: none Cough present: Yes Cough Description: Non-Productive - Related Data Home oxygen amount: none Home Medications Medication Instructions Recorded Confirmed Atorvastatin [Lipitor] 40 mg PO HS 03/16/15 07/16/17 Cholecalciferol (Vitamin D3) 50,000 unit PO SUWE 03/16/15 07/16/17 [Vitamin D3] Sertraline [Zoloft] 100 mg PO HS 03/16/15 07/16/17 Primidone [Mysoline] 50 mg PO DAILY 03/31/16 07/16/17 Acetaminophen [Tylenol] 650 mg PO Q6HR PRN 09/05/16 07/16/17 Fluticasone Propionate Nasal 1 spr NS DAILY PRN 09/05/16 07/16/17 [Flonase] Aspirin 81 mg PO HS 11/09/16 07/16/17 Ferrous Sulfate 650 mg PO DAILY 11/09/16 07/16/17 Promethazine HCl 12.5 mg PO TID PRN 11/09/16 07/16/17 Calcium Acetate [Phos-LO] 1,334 mg PO BID 07/16/17 07/16/17 Furosemide [Lasix] 40 mg PO BID 07/16/17 07/16/17 Gabapentin [Neurontin] 400 mg PO HS 07/16/17 07/16/17 Insulin Glargine,Hum.rec.anlog 15 - 25 unit SQ HS 07/16/17 07/16/17 [Lantus Solostar] Lidocaine/Prilocaine [Emla] 1 appl TP 3XW 07/16/17 07/16/17 cloNIDine HCl [CloNIDine HCl] 0.1 mg PO BID 07/16/17 07/16/17 hydrALAZINE [HydrALAZINE] 50 mg PO TID 07/16/17 07/16/17 Previous Rx's Medication Instructions Recorded Dicyclomine [Bentyl] 10 mg PO TID #90 capsule 03/30/15 Ascorbic Acid [Vitamin C] 500 mg PO DAILY #30 tablet 04/25/16 Terazosin [Hytrin] 5 mg PO HS #60 capsule 06/28/16 NIFEdipine XL (24 HR) [Procardia 90 mg PO DAILY #30 tab.er.24 12/03/16 XL] Allergies Allergy/AdvReac Type Severity Reaction Status Date / Time metoclopramide [From Reglan] Allergy Intermediate See Verified 07/16/17 13:13 Comments All systems ED: reviewed and negative except as stated. Constitutional: Reports: weakness Eyes: Reports: as per HPI ENT ED: Reports: as per HPI Cardiovascular: Reports: as per HPI, dyspnea on exertion Respiratory: Reports: cough, dyspnea Gastrointestinal: Reports: as per HPI Genitourinary: Reports: as per HPI Musculoskeletal: Reports: as per HPI Integumentary: Reports: as per HPI Neurological: Reports: as per HPI Psychiatric: Reports: as per HPI Endocrine: Reports: as per HPI Hematological/Lymphatic: Reports: as per HPI Allergic/Immunologic: Reports: as per HPI Past Medical History - Past Medical History Source: patient Medical history: Reports: diabetes, dialysis, hyperlipidemia, hypertension, pulmonary embolus, renal disease, other Surgical history: Reports: cataract Psychiatric history: Reports: depression - Social History Smoking Status: Never smoker Smokeless Tobacco Status: No Alcohol use: Reports: none Drug use: Reports: none Physical Exam Speaks in full sentences without conversational dyspnea. mild speech impediment - General Limitations: no limitations General appearance: alert, in no apparent distress - Head Head exam: atraumatic - Eye Eye exam: Present: normal appearance - ENT ENT exam: normal exam - Neck Neck exam: Present: normal inspection, full ROM - Chest Chest inspection: Present: normal inspection, symmetric chest wall rise - Respiratory Respiratory exam: Present: normal lung sounds bilaterally. Absent: respiratory distress, wheezes - Cardiovascular Cardiovascular exam: Present: regular rate, normal rhythm, normal heart sounds - Rectal Exam Rectal exam: Present: deferred - Extremities Exam Extremities exam: Present: normal inspection, other (RUE AV fistula) - Neurological Exam Neurological exam: Present: alert, oriented X3, CN II-XII intact - Psychiatric Psychiatric exam: Present: normal affect, normal mood - Skin Skin exam: Present: warm, dry, intact Course Course Narrative: Patient presents with intermittent dyspnea. He does admit to a nonproductive cough. Similar symptoms previously with a pulmonary embolism. Workup including CT chest initiated. I will also check an EKG and labs - Reevaluation(s) Reevaluation #1: Test results discussed with patient. I will request admission for planned thoracentesis Vital Signs Temperature 98.0 F 01/10/18 14:33 Pulse Rate 70 01/10/18 14:33 Respiratory Rate 18 01/10/18 14:33 Blood Pressure 141/70 01/10/18 14:33 O2 Sat by Pulse Oximetry 95 01/10/18 14:33 Temperature 98.0 F 01/10/18 14:46 Pulse Rate 70 01/10/18 14:46 Respiratory Rate 18 01/10/18 14:46 Blood Pressure 141/70 01/10/18 14:46 O2 Sat by Pulse Oximetry 95 01/10/18 14:46 Oxygen Delivery Oxygen Delivery Room Air Shortness of Breath/Dyspnea - Lab Data Lab results reviewed: Yes I reviewed the patient's lab results. Result diagrams: 01/10/18 14:48 01/10/18 14:48 Lab Results 01/10/18 01/10/18 01/10/18 Range/Units 14:48 14:48 14:49 WBC 6.3 (4.3-11.1) K/mcL RBC 3.51 L (4.19-5.50) M/mcL Hgb 10.9 L (12.9-16.9) g/dL Hct 33.1 L (37.5-50.1) % MCV 94.3 (83.0-100.0) fL MCH 31.1 (28.0-33.3) pg MCHC 32.9 (31.6-35.5) g/dL RDW 13.4 (11.5-14.5) % Plt Count 216 (140-400) K/mcL MPV 9.4 (9.4-12.4) fL Immature Gran % 0.3 (0-4) % Seg Neutrophils % 59.0 % Lymphocytes % 24.4 % Monocytes % 9.1 % Eosinophils % 6.6 % Basophils % 0.6 % Neutrophils # 3.7 (1.6-8.9) K/mcL Lymphocytes # 1.6 (0.6-4.6) K/mcL Monocytes # 0.6 (0.0-1.3) K/mcL Eosinophils # 0.4 (0.0-0.6) K/mcL Basophils # 0.0 (0.0-0.2) K/mcL PT 12.2 H (9.4-12.1) Seconds INR 1.1 APTT 32.0 (26.0-36.0) Seconds Sodium 139 (136-145) mEq/L Potassium 4.3 (3.5-5.1) mEq/L Chloride 99 (98-107) mEq/L Carbon Dioxide 28 (23-29) mEq/L BUN 50 H (8-23) mg/dL Creatinine 7.06 H (0.70-1.30) mg/dL Est GFR ( Amer) 10 L (> 60) Est GFR (Non-Af Amer) 8 L (> 60) BUN/Creatinine Ratio 7 (6-26) Glucose 138 H (70-105) mg/dL Calculated Osmolality 304 H (280-300) Calcium 8.9 (8.6-10.3) mg/dL Total Bilirubin 0.4 (0.3-1.0) mg/dL AST 23 (13-39) Units/L ALT 17 (7-52) Units/L Alkaline Phosphatase 100 (34-104) Units/L Troponin I (< 0.04) ng/mL Serum Total Protein 6.8 (6.4-8.9) g/dL Albumin 4.1 (3.5-5.7) g/dL Globulin 2.7 (2.4-3.5) g/dL Albumin/Globulin Ratio 1.5 (1.1-2.2) 01/10/18 Range/Units 14:49 WBC (4.3-11.1) K/mcL RBC (4.19-5.50) M/mcL Hgb (12.9-16.9) g/dL Hct (37.5-50.1) % MCV (83.0-100.0) fL MCH (28.0-33.3) pg MCHC (31.6-35.5) g/dL RDW (11.5-14.5) % Plt Count (140-400) K/mcL MPV (9.4-12.4) fL Immature Gran % (0-4) % Seg Neutrophils % % Lymphocytes % % Monocytes % % Eosinophils % % Basophils % % Neutrophils # (1.6-8.9) K/mcL Lymphocytes # (0.6-4.6) K/mcL Monocytes # (0.0-1.3) K/mcL Eosinophils # (0.0-0.6) K/mcL Basophils # (0.0-0.2) K/mcL PT (9.4-12.1) Seconds INR APTT (26.0-36.0) Seconds Sodium (136-145) mEq/L Potassium (3.5-5.1) mEq/L Chloride (98-107) mEq/L Carbon Dioxide (23-29) mEq/L BUN (8-23) mg/dL Creatinine (0.70-1.30) mg/dL Est GFR ( Amer) (> 60) Est GFR (Non-Af Amer) (> 60) BUN/Creatinine Ratio (6-26) Glucose (70-105) mg/dL Calculated Osmolality (280-300) Calcium (8.6-10.3) mg/dL Total Bilirubin (0.3-1.0) mg/dL AST (13-39) Units/L ALT (7-52) Units/L Alkaline Phosphatase (34-104) Units/L Troponin I 0.03 (< 0.04) ng/mL Serum Total Protein (6.4-8.9) g/dL Albumin (3.5-5.7) g/dL Globulin (2.4-3.5) g/dL Albumin/Globulin Ratio (1.1-2.2) - Radiology Data Radiology results reviewed: Yes I reviewed the patient's radiology results. - EKG Data EKG attestation: Yes I reviewed and interpreted this EKG. EKG results narrative: Normal sinus rhythm first-degree AV block rate 61 MO-2 31 QRS 104 QT/QTc 4:30/ 433. No acute ST segment elevation. Study compared to previous dated 11/22/16
[2018-01-10 15:30] LABS: Basophils % 0.6 %; Eosinophils # 0.4 K/mcL (0.0-0.6); Eosinophils % 6.6 %; Hematocrit 33.1 % (37.5-50.1); Hemoglobin 10.9 g/dL (12.9-16.9); Immature Granulocytes % 0.3 % (0-4); Lymphocytes # 1.6 K/mcL (0.6-4.6); Lymphocytes % 24.4 %; Mean Corpuscular HGB Conc 32.9 g/dL (31.6-35.5); Mean Corpuscular Hemoglobin 31.1 pg (28.0-33.3); Mean Corpuscular Volume 94.3 fL (83.0-100.0); Mean Platelet Volume 9.4 fL (9.4-12.4); Monocytes # 0.6 K/mcL (0.0-1.3); Monocytes % 9.1 %; Neutrophils # 3.7 K/mcL (1.6-8.9); Platelet Count 216 K/mcL (140-400); Red Blood Count 3.51 M/mcL (4.19-5.50); Red Cell Distribution Width 13.4 % (11.5-14.5)
[2018-01-10 15:46] LABS: Albumin 4.1 g/dL (3.5-5.7); Albumin/Globulin Ratio 1.5 (1.1-2.2); Bilirubin,Total 0.4 mg/dL (0.3-1.0); Calcium 8.9 mg/dL (8.6-10.3); Globulin 2.7 g/dL (2.4-3.5); Potassium 4.3 mEq/L (3.5-5.1); Total Protein 6.8 g/dL (6.4-8.9)
[2018-01-10 15:48] LABS: INR 1.1; Prothrombin Time 12.2 Seconds (9.4-12.1)
--- NOTE | 2018-01-10 19:58 | Internal Med History&Physical ---
Date of Encounter: 01/10/18 Time of Encounter: 18:00 Internal Medicine - H&P: HPI Chief complaint: Shortness of breath Admitted From: Home Plans for Post Hospital Care: Home History of present illness: Patient is a 62-year-old male with past medical history significant for ischemic cardiomyopathy, diabetes, iron deficiency anemia and end-stage renal disease who presents to the ER on 01/10/18 due to shortness of breath. Patient reports of a two-week history of dyspnea with exertion that has gradually gotten worse so decided to go to the ER for evaluation. In the ER, patients found to have a left sided pleural effusion. Patient has had a history of thoracentesis in the past and will be admitted to medical surgical floor for evaluation and management. Past Med Surg Social Fam HX - Past Medical History Medical history: diabetes, dialysis, hyperlipidemia, hypertension, pulmonary embolus, renal disease, other Additional medical history: Diabetic neuropathy. Chronic anemia. tremors. low back pain. IBS Psychiatric history: depression - Past Surgical History Surgical History: cataract, other Additional surgical history: Carpal tunnel surgery - Social History Smoking Status: Never smoker Smokeless Tobacco Status: No Alcohol use: none Drug use: none - Family History Father Family Member Ethnicity: Non- Living Status: Still Living Hx Family Cardiac Disorders: Yes Hx Family Endocrine Disorder: Yes Mother Adopted: No Family Member Ethnicity: Non- Living Status: Still Living Hx Family Cardiac Disorders: Yes (ID) Hx Family Respiratory Disorders: No Hx Family Cancer: Yes (Lung) Hx Family GI Disorders: No Hx Family Endocrine Disorder: Yes Hx Family Neuromuscular Disorders: No Hx Family Neurologic Disorders: No Hx Family HEENT Disorders: No Hx Family Autoimmune Disorders: No Internal Medicine - H&P: Meds Primidone [Mysoline] 50 mg PO DAILY 03/31/16 [History] Ascorbic Acid [Vitamin C] 500 mg PO DAILY #30 tablet 04/25/16 [Rx] Terazosin [Hytrin] 5 mg PO HS #60 capsule 06/28/16 [Rx] Acetaminophen [Tylenol] 650 mg PO Q6HR PRN 09/05/16 [History] Fluticasone Propionate Nasal [Flonase] 1 spr NS DAILY PRN 09/05/16 [History] Aspirin 81 mg PO HS 11/09/16 [History] Ferrous Sulfate 650 mg PO DAILY 11/09/16 [History] Promethazine HCl 12.5 mg PO TID PRN 11/09/16 [History] NIFEdipine XL (24 HR) [Procardia XL] 90 mg PO DAILY #30 tab.er.24 12/03/16 [Rx] Calcium Acetate [Phos-LO] 1,334 mg PO BID 07/16/17 [History] Furosemide [Lasix] 40 mg PO BID 07/16/17 [History] Gabapentin [Neurontin] 400 mg PO HS 07/16/17 [History] Insulin Glargine,Hum.rec.anlog [Lantus Solostar] 15 - 25 unit SQ HS 07/16/17 [ History] Lidocaine/Prilocaine [Emla] 1 appl TP 3XW 07/16/17 [History] hydrALAZINE [HydrALAZINE] 50 mg PO TID 07/16/17 [History] Atorvastatin [Lipitor] 40 mg PO HS 01/10/18 [History] Dicyclomine [Bentyl] 10 mg PO QID 01/10/18 [History] Ergocalciferol (VITAMIN D2) [Vitamin D2] 50,000 unit PO SUWE 01/10/18 [History] Renal Vitamin [Renal Caps Softgel] 1 mg PO DAILY 01/10/18 [History] Sertraline [Zoloft] 100 mg PO HS 01/10/18 [History] 3 Allergy/AdvReac Type Severity Reaction Status Date / Time metoclopramide [From Reglan] Allergy Intermediate See Verified 01/10/18 17:09 Comments All Systems PM: A 10-system review of systems was performed and is negative for pertinent findings except as documented above in the HPI. - Constitutional Vitals: Temp Pulse Resp BP Pulse Ox 97.8 F 61 16 147/70 96 01/10/18 18:08 01/10/18 18:08 01/10/18 18:08 01/10/18 18:08 01/10/18 18:08 General appearance: Present: A&O X 3, no acute distress - Eye Eye exam: Present: normal appearance - ENT ENT exam: Present: mucous membranes moist - Respiratory Respiratory exam: Present: CTAB. Absent: accessory muscle use, rales, rhonchi, wheezes - Cardiovascular Cardiovascular exam: Present: RRR, +S1, +S2. Absent: diastolic murmur, gallop, rubs, systolic murmur - GI/Abdominal GI/Abdominal exam: Present: normal bowel sounds, soft, no peritoneal signs. Absent: distended, tenderness - Extremities Exam Extremities exam: Absent: pedal edema - Neurological Exam Neurological exam: Present: no focal deficits - Psychiatric Psychiatric exam: Present: normal mood - Skin Skin exam: Present: normal color Internal Med - H&P Results - Labs CBC & Chem 7: 01/10/18 14:48 01/10/18 14:48 - Assessment and plan (1) Dyspnea Current Visit: Yes Status: Acute Assessment and plan: Patient with dyspnea secondary to left pleural effusion Consult IR for thoracentesis Qualifiers: Dyspnea type: dyspnea on exertion Qualified Code(s): R06.09 - Other forms of dyspnea (2) Pleural effusion Current Visit: Yes Status: Acute Assessment and plan: Patient with left pleural effusion on CT as above Management as above (3) ESRD (end stage renal disease) on dialysis Current Visit: No Status: Acute Assessment and plan: Consult nephrology for management (4) Congestive heart failure Current Visit: No Status: Chronic Assessment and plan: Continue home medications Qualifiers: Heart failure chronicity: unspecified Qualified Code(s): I50.9 - Heart failure, unspecified (5) DM type 2 (diabetes mellitus, type 2) Current Visit: No Status: Chronic Assessment and plan: Continue home medications Qualifiers: Qualified Code(s): E11.9 - Type 2 diabetes mellitus without complications (6) DVT prophylaxis Current Visit: No Status: Acute Assessment and plan: Subcutaneous heparin - Time Spent With Patient Total time spent is greater than 50% in coordination of care (as documented) at patient's floor/unit and/or counseling patient:
[2018-01-10] MEDS ORDERED: Naloxone 0.4 MG/ML INJ IVP PRN (20:03)
[2018-01-10] MEDS ORDERED: Fluticasone Propionate Nasal 50 MCG/SPRAY BOTTLE NS PRN (20:04)
[2018-01-10] MEDS ORDERED: Acetaminophen 325 MG TABLET PO PRN (20:04)
[2018-01-10 20:43] LABS: Hepatitis B Surface Antigen Nonreactive (Nonreactive)
[2018-01-10] MEDS ORDERED: Furosemide 40 MG TABLET PO SCH (21:00)
[2018-01-10] MEDS: hydrALAZINE 25 MG TABLET PO SCH (22:14)
[2018-01-10] MEDS: Gabapentin 400 MG CAPSULE PO SCH (22:14)
[2018-01-10] MEDS: Aspirin 81 MG TAB.CHEW PO SCH (22:14)
[2018-01-10] MEDS: Calcium Acetate 667 MG CAPSULE PO SCH (23:37)
[2018-01-11 01:12] LABS: Hepatitis B Surface Antibody 3.33 mIU/mL
[2018-01-11 04:43] LABS: Basophils % 0.6 %; Eosinophils # 0.4 K/mcL (0.0-0.6); Eosinophils % 6.7 %; Hematocrit 30.6 % (37.5-50.1); Hemoglobin 9.9 g/dL (12.9-16.9); Immature Granulocytes % 0.2 % (0-4); Lymphocytes # 2.2 K/mcL (0.6-4.6); Lymphocytes % 33.4 %; Mean Corpuscular HGB Conc 32.4 g/dL (31.6-35.5); Mean Corpuscular Hemoglobin 30.2 pg (28.0-33.3); Mean Corpuscular Volume 93.3 fL (83.0-100.0); Mean Platelet Volume 9.3 fL (9.4-12.4); Monocytes # 0.6 K/mcL (0.0-1.3); Monocytes % 8.6 %; Neutrophils # 3.3 K/mcL (1.6-8.9); Platelet Count 210 K/mcL (140-400); Red Blood Count 3.28 M/mcL (4.19-5.50); Red Cell Distribution Width 13.6 % (11.5-14.5); Segmented Neutrophils % 50.5 %
[2018-01-11 05:01] LABS: Calcium 8.5 mg/dL (8.6-10.3); Potassium 4.3 mEq/L (3.5-5.1)
[2018-01-11] MEDS: Ascorbic Acid 500 MG TABLET PO SCH (05:32)
[2018-01-11] MEDS: *HR* Heparin 5,000 UNIT/ML VIAL SQ SCH ×2 (05:45→18:09)
[2018-01-11] MEDS ORDERED: 0.9 % Sodium Chloride 1,000 ML ONE (07:59)
[2018-01-11] MEDS ORDERED: 0.9 % Sodium Chloride 250 ML IVC PRN (08:20)
[2018-01-11] MEDS ORDERED: 0.9 % Sodium Chloride 1,000 ML PRIME SCH (08:30)
[2018-01-11] MEDS: Renal Vitamin 1 MG CAPSULE PO SCH (08:31)
[2018-01-11] MEDS: Furosemide 40 MG TABLET PO SCH ×2 (08:31→17:04)
[2018-01-11] MEDS: Calcium Acetate 667 MG CAPSULE PO SCH ×2 (08:31→17:04)
[2018-01-11] MEDS: hydrALAZINE 25 MG TABLET PO SCH ×3 (08:32→21:23)
[2018-01-11] MEDS: NIFEdipine XL (24 HR) 30 MG TAB.ER.24 PO SCH (08:32)
[2018-01-11] MEDS ORDERED: Primidone 50 MG TABLET PO SCH (09:00)
--- NOTE | 2018-01-11 09:47 | Nephrology Consult Note ---
Date of Encounter: 01/11/18 Time of Encounter: 09:44 Assessment and Plan (1) ESRD (end stage renal disease) on dialysis Current Visit: No Status: Acute MWF at [facility] with Dr. Velasquez. HD today, UF as needed. Avoid nephrotoxins and renal dose all medications. (2) Dyspnea Current Visit: Yes Status: Acute Per primary team. Qualifiers: Dyspnea type: dyspnea on exertion Qualified Code(s): R06.09 - Other forms of dyspnea (3) Anemia Current Visit: No Status: Acute Will order iron workup for anemia. Goal Hgb 10-11. Hgb 9.9 today. Qualifiers: Anemia type: unspecified type Qualified Code(s): D64.9 - Anemia, unspecified History of Present Illness - Reason for Consult Consult date: 01/11/18 end stage renal disease Requesting physician: Iker Young - Chief Complaint shortness of breath - History of Present Illness Mr. French is a 62 year old Male of Dr. Velasquez's. ESRD MWF at [facility], last treatment was Thursday. Admitted to ED with shortness of breath. PMH : diabetes, hyperlipidemia, hypertension, pulmonary embolus. Reports dyspnea has been getting worse over 2 weeks. Denies productive cough. Denies dyspnea at rest, mostly with exertion. Denies Fever/Chills/Nausea/Vomiting/Diarrhea. Will manage HD during this stay. HD ordered for today, and was in progress during examination. Past Med Surg Social Fam HX - Past Medical History Medical history: diabetes, dialysis, hyperlipidemia, hypertension, pulmonary embolus, renal disease, other Additional medical history: Diabetic neuropathy. Chronic anemia. tremors. low back pain. IBS Psychiatric history: depression - Past Surgical History Surgical History: cataract, other Additional surgical history: Carpal tunnel surgery - Social History Smoking Status: Never smoker Smokeless Tobacco Status: No Alcohol use: none Drug use: none - Family History Father Family Member Ethnicity: Non- Living Status: Still Living Hx Family Cardiac Disorders: Yes Hx Family Endocrine Disorder: Yes Mother Adopted: No Family Member Ethnicity: Non- Living Status: Still Living Hx Family Cardiac Disorders: Yes ([place]) Hx Family Respiratory Disorders: No Hx Family Cancer: Yes (Lung) Hx Family GI Disorders: No Hx Family Endocrine Disorder: Yes Hx Family Neuromuscular Disorders: No Hx Family Neurologic Disorders: No Hx Family HEENT Disorders: No Hx Family Autoimmune Disorders: No Medications and Allergies Ascorbic Acid [Vitamin C] 500 mg PO DAILY #30 tablet 04/25/16 [Rx] Terazosin [Hytrin] 5 mg PO HS #60 capsule 06/28/16 [Rx] Acetaminophen [Tylenol] 650 mg PO Q6HR PRN 09/05/16 [History] Aspirin 81 mg PO HS 11/09/16 [History] Promethazine HCl 12.5 mg PO TID PRN 11/09/16 [History] Furosemide [Lasix] 40 mg PO BID 07/16/17 [History] Insulin Glargine,Hum.rec.anlog [Lantus Solostar] 15 - 25 unit SQ HS 07/16/17 [ History] Lidocaine/Prilocaine [Emla] 1 appl TP 3XW 07/16/17 [History] hydrALAZINE [HydrALAZINE] 50 mg PO TID 07/16/17 [History] Atorvastatin [Lipitor] 40 mg PO HS 01/10/18 [History] Dicyclomine [Bentyl] 10 mg PO TID 01/10/18 [History] Ergocalciferol (VITAMIN D2) [Vitamin D2] 50,000 unit PO MOTH 01/10/18 [History] Magnesium Oxide [Magnesium] 400 mg PO BID PRN 01/10/18 [History] Melatonin 5 mg PO HS PRN 01/10/18 [History] NIFEdipine XL (24 HR) [Procardia XL] 90 mg PO DAILY 01/10/18 [History] Renal Vitamin [Renal Caps Softgel] 1 mg PO DAILY 01/10/18 [History] Sertraline [Zoloft] 100 mg PO HS 01/10/18 [History] Zolpidem Tartrate [Edluar] 5 mg SL HS PRN 01/10/18 [History] Zolpidem [Ambien] 5 mg PO HS 01/10/18 [History] 3 Allergy/AdvReac Type Severity Reaction Status Date / Time metoclopramide [From Reglan] Allergy Intermediate See Verified 01/10/18 17:09 Comments Review of Systems Constitutional: no anorexia, no chills, no fatigue, no fever(s), no weight gain Cardiovascular: dyspnea on exertion, no chest pain, no chest pain at rest, no chest pain with activity, no dyspnea Respiratory: no cough Gastrointestinal: no diarrhea, no nausea, no vomiting Exam - Vital Signs Vital signs: Initial Vital Signs Temp Pulse Resp BP Pulse Ox 98.0 F 70 18 141/70 95 01/10/18 14:33 01/10/18 14:33 01/10/18 14:33 01/10/18 14:33 01/10/18 14:33 Vital Signs - Last 8 Hours Temp Pulse Resp BP Pulse Ox 01/11/18 08:53 97 01/11/18 07:17 97.5 F L 56 20 136/62 97 01/11/18 04:17 98 F 57 18 145/71 99 Intake and Output 01/10/18 01/11/18 01/11/18 23:59 07:59 15:59 Intake Total 240 / 240 0 / 0 100 / 100 Output Total 0 / 0 0 / 0 Balance 240 / 240 0 / 0 100 / 100 Intake: Oral 240 / 240 0 / 0 100 / 100 Output: Urine 0 / 0 0 / 0 Other: Meal turkey dinner npo Percent of Meal Consumed 100% Weight 101.5 kg Blood Glucose* 111 106 Patient Weight 01/11/18 23:59 Weight 101.5 kg - General Appearance General appearance: well-developed, well-nourished EENT: ATNC, hearing intact, vision intact Neck: supple Respiratory: clear Cardiology: no edema, regular rate, regular rhythm, normal S1, normal S2 - Dialysis Access Dialysis Vascular Access: Arteriovenous Fistula thrill: Yes bruit: Yes Gastrointestinal: normoactive bowel sounds, no tenderness, no guarding Integumentary: no rash, warm and dry Neurologic: alert and oriented x3 Psychiatric: mood/affect appropriate, cooperative Results - Lab Results 01/11/18 04:16 01/11/18 04:16 Most recent lab results Calcium 8.5 mg/dL (8.6-10.3) L 01/11/18 04:16 Consult Discharge Plan - Plan Referrals: Ruel Veloz MD [Primary Care Provider] -
[2018-01-11] MEDS ORDERED: D5% in Water 1,000 ML IVC PRN (13:15)
[2018-01-11] MEDS ORDERED: Dextrose Gel 15 GM/37.5 ML TUBE PO PRN ×2 (13:15)
[2018-01-11] MEDS ORDERED: *HR* Dextrose 50 % in Water (Syg) 50 ML SYRINGE IVP PRN (13:15)
--- NOTE | 2018-01-11 16:30 | Electrocardiograph Report ---
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
[2018-01-11 17:31] LABS: RBC,Pleural Fluid 0.003 M/mcL
[2018-01-11 17:52] LABS: Total Protein,Pleural Fluid 3.3 g/dL (No Ref Range)
[2018-01-11 20:24] LABS: Appearance of Pleural Fl Clear (Clear)
[2018-01-11] MEDS ORDERED: Insulin DETEMIR 100 UNIT/ML X5UNITS SQ SCH (21:00)
[2018-01-11] MEDS: Gabapentin 400 MG CAPSULE PO SCH (21:22)
[2018-01-11] MEDS: Aspirin 81 MG TAB.CHEW PO SCH (21:23)
--- NOTE | 2018-01-11 23:18 | Internal Med Progress Note ---
Date of Encounter: 01/11/18 Time of Encounter: 23:17 - Assessment and plan (1) Dyspnea Current Visit: Yes Status: Acute Qualifiers: Dyspnea type: shortness of breath Qualified Code(s): R06.02 - Shortness of breath; R06.00 - Dyspnea, unspecified; R06.01 - Orthopnea (2) Pleural effusion, left Current Visit: Yes Status: Acute (3) Type 2 diabetes mellitus with ESRD (end-stage renal disease) Current Visit: Yes Status: Acute (4) Hypertensive renal disease with renal failure Current Visit: Yes Status: Acute (5) Anemia in chronic kidney disease (CKD) Current Visit: No Status: Chronic Qualifiers: Chronic kidney disease stage: on chronic dialysis Qualified Code(s): N18.6 - End stage renal disease; D63.1 - Anemia in chronic kidney disease; Z99.2 - Dependence on renal dialysis - Time Spent With Patient Total time spent is greater than 50% in coordination of care (as documented) at patient's floor/unit and/or counseling patient: 25 - 35 minutes - Subjective Interval history: .. The patient feels good. His dyspnea subsided after left-sided thoracentesis ( 700 mL of fluid has been removed). Denies chest pain. Denies abdominal pain, nausea and vomiting. He has end-stage renal disease. He gets hemodialysis on Mondays, Wednesdays and Fridays. OBJECTIVE: .. Skin: Free of rash and discoloration ENMT: Oral/pharyngeal mucosa is normal in appearance. Eyes: Sclera is white. There is no discharge from eyes. Respiratory: Normal breath sounds; no crackles or wheezes. CV: Heart is regular; no gallop or murmur. GI: Abdomen is soft and not tender. There is no palpable mass or visceromegaly. Neuro: There is no focal deficits. ASSESSMENT AND PLAN: .. Dyspnea/left-sided pleural effusion. Those problems disappeared after successful left-sided thoracentesis. The effusion is probably due to her end- stage renal disease. He may have underlying congestive heart failure. Echocardiogram has been ordered. The results are pending. Type 2 diabetes mellitus/essential hypertension with end-stage renal disease. See notes from nephrology. The patient gets hemodialysis on Mondays, Wednesdays and Fridays. Anemia in chronic kidney disease. His iron level will be checked. The goal is to keep his hemoglobin between 10 and 11. NOTES: Hemoglobin is 9.9; 10.9 yesterday. He has normal electrolytes. Creatinine is 7.87. GFR is 7. EKG from yesterday shows normal sinus rhythm. Left-sided thoracentesis was done today. 700 mL of fluid has been removed. Chest x-ray done after the thoracentesis showed minimal left basilar atelectasis. It showed the resolution of the left pleural effusion. DISPOSITION: Tentative discharge home likely tomorrow. - Constitutional Vitals: Temp Pulse Resp BP Pulse Ox 98.0 F 56 17 172/71 96 01/11/18 19:24 01/11/18 19:24 01/11/18 19:24 01/11/18 19:24 01/11/18 19:24 General appearance: Present: A&O X 3, no acute distress, answers questions appropriately Internal Medicine: Result - Labs CBC & Chem 7: 01/11/18 04:16 01/11/18 04:16 Labs: Short CBC 01/11/18 Range/Units 04:16 WBC 6.5 (4.3-11.1) K/mcL Hgb 9.9 L (12.9-16.9) g/dL Hct 30.6 L (37.5-50.1) % Plt Count 210 (140-400) K/mcL Neutrophils # 3.3 (1.6-8.9) K/mcL BMP 01/11/18 04:16 Sodium 139 Potassium 4.3 Chloride 101 Carbon Dioxide 28 BUN 58 H Creatinine 7.87 H Glucose 116 H Calcium 8.5 L - ABG Interpretation ABG results: PT/INR, D-dimer PT 12.2 Seconds (9.4-12.1) H 01/10/18 14:49 - Impressions Impressions Thoracentesis Ultrasound 01/11/18 13:49 IMPRESSION: Successful ultrasound guided thoracentesis. D/ / Eber Walker MD / Eber Walker MD Interpreting Provider: Eber Walker MD Chest X-Ray 01/11/18 14:48 IMPRESSION: No pneumothorax. Minimal left basilar atelectasis. Resolution of the left pleural effusion. D/ / 01/11/2018 16:11:33 Nasir Herring MD / bcarter Interpreting Provider: Nasir Herring MD Consult Discharge Plan - Plan Referrals: Ruel Veloz MD [Primary Care Provider] -
[2018-01-12] MEDS: Ascorbic Acid 500 MG TABLET PO SCH (05:57)
[2018-01-12] MEDS: *HR* Heparin 5,000 UNIT/ML VIAL SQ SCH (06:35)
[2018-01-12 07:50] LABS: % Iron Saturation 34 % (20-55); Iron 75 mcg/dL (65-175); Transferrin 157 mg/dL (203-362)
[2018-01-12 08:05] LABS: Ferritin 927 ng/mL (20-250)
[2018-01-12 08:07] LABS: Vitamin B12 998 pg/mL (250-1100)
[2018-01-12 08:18] LABS: Folate > 22.3 ng/mL (3.0-16.0)
[2018-01-12] MEDS: Furosemide 40 MG TABLET PO SCH (08:20)
[2018-01-12] MEDS: Calcium Acetate 667 MG CAPSULE PO SCH (08:20)
[2018-01-12] MEDS: NIFEdipine XL (24 HR) 30 MG TAB.ER.24 PO SCH (08:20)
[2018-01-12] MEDS: hydrALAZINE 25 MG TABLET PO SCH (08:20)
[2018-01-12] MEDS: Renal Vitamin 1 MG CAPSULE PO SCH (08:20)
--- NOTE | 2018-01-12 10:21 | Discharge Summary ---
- NOTES TO OUTPATIENT PROVIDER Notes to Outpatient Provider: Patient was admitted for shorttness of breath and was found to have L pleural effusion, which was tapped, he also received HD. Stable, without any changes in home meds, follow up with PCP and nephrology Date of Encounter: 01/12/18 Time of Encounter: 10:17 - Discharge Diagnosis (1) DM type 2 (diabetes mellitus, type 2) Priority: Secondary Status: Chronic Qualifiers: Qualified Code(s): E11.9 - Type 2 diabetes mellitus without complications (2) Congestive heart failure Priority: Secondary Status: Chronic Qualifiers: Heart failure chronicity: unspecified Qualified Code(s): I50.9 - Heart failure, unspecified (3) DVT prophylaxis Priority: Primary Status: Acute (4) Pleural effusion Priority: Primary Status: Resolved (5) ESRD (end stage renal disease) on dialysis Priority: Secondary Status: Chronic (6) Dyspnea Priority: Primary Status: Resolved Qualifiers: Dyspnea type: shortness of breath Qualified Code(s): R06.02 - Shortness of breath; R06.00 - Dyspnea, unspecified; R06.01 - Orthopnea Hospital course: Mr. French is a 62 year old male with PMH of DM complicated by ESRD and diabetic nephropathy, Ischemic CMP, [place], ESRD who was admitted to obs for management of dyspnea, work up in ER showed L pleural effusion which has been tapped and is transudative, possibly due to patient's fluid overload status. He also received HD in-patient He is seen and examined at the bedside this mrn, no new complains, his SOB has resolved, he is ambulatory and his home meds have been resumed without changes Discharged home in clinically stable condition to follow up with PCP and [employer]. Patient endorsed having support at home and having transport to go to HD Discharge discussed with: patient, nurse, case management - Time Spent with Patient Total time spent providing and/or coordinating discharge services: Greater than 30 minutes - Discharge Medications Home Medications: Ascorbic Acid [Vitamin C] 500 mg PO DAILY #30 tablet 04/25/16 [Rx] Terazosin [Hytrin] 5 mg PO HS #60 capsule 06/28/16 [Rx] Acetaminophen [Tylenol] 650 mg PO Q6HR PRN 09/05/16 [History] Aspirin 81 mg PO HS 11/09/16 [History] Promethazine HCl 12.5 mg PO TID PRN 11/09/16 [History] Furosemide [Lasix] 40 mg PO BID 07/16/17 [History] Insulin Glargine,Hum.rec.anlog [Lantus Solostar] 15 - 25 unit SQ HS 07/16/17 [ History] Lidocaine/Prilocaine [Emla] 1 appl TP 3XW 07/16/17 [History] hydrALAZINE [HydrALAZINE] 50 mg PO TID 07/16/17 [History] Atorvastatin [Lipitor] 40 mg PO HS 01/10/18 [History] Dicyclomine [Bentyl] 10 mg PO TID 01/10/18 [History] Ergocalciferol (VITAMIN D2) [Vitamin D2] 50,000 unit PO MOTH 01/10/18 [History] Magnesium Oxide [Magnesium] 400 mg PO BID PRN 01/10/18 [History] Melatonin 5 mg PO HS PRN 01/10/18 [History] NIFEdipine XL (24 HR) [Procardia XL] 90 mg PO DAILY 01/10/18 [History] Renal Vitamin [Renal Caps Softgel] 1 mg PO DAILY 01/10/18 [History] Sertraline [Zoloft] 100 mg PO HS 01/10/18 [History] Zolpidem Tartrate [Edluar] 5 mg SL HS PRN 01/10/18 [History] Zolpidem [Ambien] 5 mg PO HS 01/10/18 [History] Allergies/Adverse Reactions: 3 Allergy/AdvReac Type Severity Reaction Status Date / Time metoclopramide [From Reglan] Allergy Intermediate See Verified 01/10/18 17:09 Comments Date of admission: 01/10/18 16:56 Primary care physician: Ruel Veloz MD Consults: 01/11/18 08:30 Consult to Dialysis [CONS] ONCE Discharging clinician: Lucas Batista Anticipated date of discharge: 01/12/18 - Constitutional Vitals: Temp Pulse Resp BP Pulse Ox 97.8 F 60 17 170/75 94 01/12/18 07:10 01/12/18 07:10 01/12/18 07:10 01/12/18 07:10 01/12/18 08:20 General appearance: Present: A&O X 3, no acute distress, obese, answers questions appropriately - Head Head exam: Present: atraumatic, normocephalic - Eye Eye exam: Present: PERRL, conjuntiva pink, sclera anicteric Pupils: Present: PERRL - Neck Neck exam general surgery: Present: supple, trachea midline. Absent: lymphadenopathy - Respiratory Respiratory exam: Present: CTAB. Absent: accessory muscle use, rales, rhonchi, wheezes - Cardiovascular Cardiovascular exam: Present: RRR, +S1, +S2. Absent: diastolic murmur, gallop, rubs, systolic murmur - GI/Abdominal GI/Abdominal exam: Present: normal bowel sounds, soft, no peritoneal signs. Absent: distended, tenderness - Extremities Exam Extremities exam: Present: warm, radial pulses palpable and symmetrical. Absent : calf tenderness, cyanotic, pedal edema - Neurological Exam Neurological exam: Present: alert, CN II-XII intact, oriented X3, no focal deficits. Absent: pronater drift, facial droop, speech deficit - Skin Skin exam: Present: dry, intact - Patient Status Disposition: Home, Self-Care Condition: Good Functional capacity at discharge: independent ambulation Overall status at discharge: patient is back to baseline - Discharge Instructions Follow Up With: Ruel Vleoz MD [Primary Care Provider] - - Diet and Activity Activity: resume usual activities as tolerated Diet: diabetic diet, low fat, low cholesterol, low salt diet
[2018-01-12 11:33] VITALS: BP 167/74
== END 2018-01-12 12:45 | disposition home or self-care (01) ==
LOC: 2ANU 14:31 → EMEROO 14:31 → SUATTDRO 16:56 → 2ANU 17:43
PROVIDERS: ADMIT Hospitalist; ATTEND Internal Medicine

== ENCOUNTER 2020-12-24 17:53 | Inpatient (IN) ==
[2020-12-24] MEDS ORDERED: Isovue-370 500 ML BOTTLE IVP ONE (18:05)
[2020-12-24 18:15] LABS: Hemoglobin 11.1 g/dL (12.9-16.9); Mean Corpuscular HGB Conc 31.7 g/dL (31.6-35.5); Mean Corpuscular Hemoglobin 30.3 pg (28.0-33.3); Mean Corpuscular Volume 95.6 fL (83.0-100.0); Mean Platelet Volume 9.3 fL (9.4-12.4); Platelet Count 228 K/mcL (140-400); Red Blood Count 3.66 M/mcL (4.19-5.50); Red Cell Distribution Width 13.1 % (11.5-14.5); White Blood Count 6.3 K/mcL (4.3-11.1)
[2020-12-24 18:23] LABS: INR 1.2; Prothrombin Time 13.6 Seconds (9.4-12.1)
[2020-12-24 19:07] LABS: Calcium 9.3 mg/dL (8.6-10.3); Troponin I 0.03 ng/mL (< 0.04)
[2020-12-24] MEDS ORDERED: Aspirin 81 MG TAB.CHEW PO ONE (19:53)
[2020-12-24] MEDS ORDERED: Perflutren Lipid Microsphere 1.3 ML in 0.9 % Sodium Chloride 8.7 ML IVP PRN (21:25)
[2020-12-25] MEDS ORDERED: Dextrose Gel 15 GM/37.5 ML TUBE PO PRN ×2 (03:45)
[2020-12-25] MEDS ORDERED: D5% in Water 1,000 ML IVC PRN (03:45)
[2020-12-25] MEDS ORDERED: *HR* Dextrose 50 % in Water (Vial) 50 ML VIAL IVP PRN (03:45)
[2020-12-25 04:37] LABS: Hemoglobin 10.3 g/dL (12.9-16.9); Mean Corpuscular HGB Conc 31.2 g/dL (31.6-35.5); Mean Corpuscular Hemoglobin 30.2 pg (28.0-33.3); Mean Corpuscular Volume 96.8 fL (83.0-100.0); Mean Platelet Volume 9.7 fL (9.4-12.4); Platelet Count 221 K/mcL (140-400); Red Blood Count 3.41 M/mcL (4.19-5.50); Red Cell Distribution Width 13.2 % (11.5-14.5); White Blood Count 7.1 K/mcL (4.3-11.1)
[2020-12-25 04:47] LABS: INR 1.2; Prothrombin Time 13.4 Seconds (9.4-12.1)
[2020-12-25 04:55] LABS: Estimated Average Glucose 194 mg/dl; Hemoglobin A1C 8.4 %
[2020-12-25 05:04] LABS: Calcium 8.6 mg/dL (8.6-10.3); Chol/HDL Ratio 5.3 (0-4.9); Potassium 3.9 mEq/L (3.5-5.1); Troponin I 0.04 ng/mL (< 0.04)
[2020-12-25] MEDS ORDERED: Aspirin Enteric Coated 81 MG Tablet PO SCH (09:00)
[2020-12-25] MEDS: Insulin LISPRO 300 UNITS/3 ML VIAL SUBQ SCH ×3 (09:29→17:08)
[2020-12-25] MEDS: hydrALAZINE 25 MG TABLET PO SCH ×3 (13:09→21:09)
[2020-12-25] MEDS: NIFEdipine XL (24 HR) 30 MG TAB.ER.24 PO SCH (13:38)
[2020-12-25] MEDS: *HR* Heparin 5,000 UNIT/ML VIAL SQ SCH ×2 (13:39→21:09)
[2020-12-26] MEDS: *HR* Heparin 5,000 UNIT/ML VIAL SQ SCH ×3 (06:08→20:53)
[2020-12-26 06:25] LABS: Calcium 8.7 mg/dL (8.6-10.3); Potassium 4.3 mEq/L (3.5-5.1)
[2020-12-26 07:12] LABS: Hepatitis B Surface Antigen Nonreactive (Nonreactive)
[2020-12-26 07:41] LABS: Hepatitis C Virus Antibody Nonreactive (Nonreactive)
[2020-12-26 07:43] LABS: Hepatitis A Antibody IgM Nonreactive (Nonreactive); Hepatitis B Core IgM Nonreactive (Nonreactive)
[2020-12-26] MEDS: Insulin LISPRO 300 UNITS/3 ML VIAL SUBQ SCH ×3 (09:12→17:27)
[2020-12-26 09:13] LABS: Hepatitis B Surface Antigen Nonreactive (Nonreactive)
[2020-12-26] MEDS: Aspirin Enteric Coated 325 MG Tablet PO SCH (09:13)
[2020-12-26] MEDS: hydrALAZINE 25 MG TABLET PO SCH ×3 (09:13→20:48)
[2020-12-26] MEDS: NIFEdipine XL (24 HR) 30 MG TAB.ER.24 PO SCH (09:13)
[2020-12-26 11:54] LABS: Hepatitis B Surface Antibody 9.36 mIU/mL
[2020-12-26] MEDS ORDERED: 0.9 % Sodium Chloride 250 ML IVC PRN (11:56)
[2020-12-26] MEDS ORDERED: 0.9 % Sodium Chloride 1,000 ML PRIME SCH (12:00)
[2020-12-26] MEDS ORDERED: 0.9 % Sodium Chloride 1,000 ML ONE (12:14)
[2020-12-26] MEDS: Acetaminophen 325 MG TABLET PO PRN (23:57)
[2020-12-27] MEDS: *HR* Heparin 5,000 UNIT/ML VIAL SQ SCH ×3 (06:02→19:30)
[2020-12-27] MEDS: Insulin LISPRO 300 UNITS/3 ML VIAL SUBQ SCH ×3 (08:06→16:36)
[2020-12-27] MEDS: NIFEdipine XL (24 HR) 30 MG TAB.ER.24 PO SCH (08:07)
[2020-12-27] MEDS: hydrALAZINE 25 MG TABLET PO SCH ×3 (08:07→19:30)
[2020-12-27] MEDS: Aspirin Enteric Coated 325 MG Tablet PO SCH (08:07)
[2020-12-27] MEDS: Acetaminophen 325 MG TABLET PO PRN (10:54)
[2020-12-27] MEDS ORDERED: 0.9 % Sodium Chloride 250 ML IVC PRN (17:35)
[2020-12-28 03:14] LABS: Hematocrit 33.9 % (37.5-50.1); Hemoglobin 10.7 g/dL (12.9-16.9); Mean Corpuscular HGB Conc 31.6 g/dL (31.6-35.5); Mean Corpuscular Hemoglobin 30.7 pg (28.0-33.3); Mean Corpuscular Volume 97.4 fL (83.0-100.0); Mean Platelet Volume 9.9 fL (9.4-12.4); Platelet Count 222 K/mcL (140-400); Red Blood Count 3.48 M/mcL (4.19-5.50); Red Cell Distribution Width 13.2 % (11.5-14.5); White Blood Count 8.1 K/mcL (4.3-11.1)
[2020-12-28 03:34] LABS: Calcium 8.7 mg/dL (8.6-10.3); Phosphorous 5.3 mg/dL (2.7-4.5); Potassium 4.4 mEq/L (3.5-5.1)
[2020-12-28] MEDS: *HR* Heparin 5,000 UNIT/ML VIAL SQ SCH (05:05)
[2020-12-28] MEDS: Insulin LISPRO 300 UNITS/3 ML VIAL SUBQ SCH ×2 (08:10→11:30)
[2020-12-28 10:07] LABS: Adenovirus Not Detected (Not Detect); Bordetella Pertussis Not Detected (Not Detect); Chlamydophila pneumoniae Not Detected (Not Detect); Coronavirus 229E Not Detected (Not Detect); Coronavirus HKU1 Not Detected (Not Detect); Coronavirus NL63 Not Detected (Not Detect); Coronavirus OC43 Not Detected (Not Detect); Human Metapneumovirus Not Detected (Not Detect); Human Rhinovirus/Enterovirus Not Detected (Not Detect); Influenza A Subtype 2009 H1 Not Detected (Not Detect); Influenza B Not Detected (Not Detect); Mycoplasma pneumoniae Not Detected (Not Detect); Parainfluenza Virus 1 Not Detected (Not Detect); Parainfluenza Virus 2 Not Detected (Not Detect); Parainfluenza Virus 3 Not Detected (Not Detect); Parainfluenza Virus 4 Not Detected (Not Detect); Respiratory Syncytial Virus Not Detected (Not Detect); SARS-CoV-2 Not Detected (Not Detect)
[2020-12-28] MEDS: NIFEdipine XL (24 HR) 30 MG TAB.ER.24 PO SCH (13:33)
[2020-12-28] MEDS: Aspirin Enteric Coated 325 MG Tablet PO SCH (13:33)
[2020-12-28] MEDS: hydrALAZINE 25 MG TABLET PO SCH ×2 (13:33→13:34)
[2020-12-28 14:51] VITALS: BP 149/75
== END 2020-12-28 17:01 | disposition other institution (70) | DRG 64 ==
LOC: 3BNU 17:53 → EMEROOARM 17:53 → SUATTDRO 20:09 → 3BNU 22:12
PROVIDERS: ADMIT Internal Medicine; ATTEND Internal Medicine

== ENCOUNTER 2021-01-22 17:07 | Inpatient (IN) ==
[2021-01-22 18:16] LABS: Hematocrit 31.8 % (37.5-50.1); Hemoglobin 10.3 g/dL (12.9-16.9); Mean Corpuscular HGB Conc 32.4 g/dL (31.6-35.5); Mean Corpuscular Hemoglobin 30.7 pg (28.0-33.3); Mean Corpuscular Volume 94.9 fL (83.0-100.0); Mean Platelet Volume 9.3 fL (9.4-12.4); Platelet Count 191 K/mcL (140-400); Red Blood Count 3.35 M/mcL (4.19-5.50); Red Cell Distribution Width 13.2 % (11.5-14.5); White Blood Count 8.7 K/mcL (4.3-11.1)
[2021-01-22 18:23] LABS: INR 1.2
[2021-01-22 18:43] LABS: Calcium 8.2 mg/dL (8.6-10.3); Potassium 5.8 mEq/L (3.5-5.1); Troponin I 0.03 ng/mL (< 0.04)
[2021-01-22] MEDS ORDERED: SODIUM ZIRCONIUM CYCLOSILICATE 5 GM POWD.PACK PO STA (19:56)
[2021-01-22] MEDS ORDERED: Melatonin 3 MG TABLET PO PRN (22:47)
[2021-01-22] MEDS ORDERED: Acetaminophen 325 MG TABLET PO PRN (22:47)
[2021-01-22] MEDS ORDERED: Naloxone 0.4 MG/ML INJ IVP PRN (22:47)
[2021-01-22] MEDS ORDERED: Ondansetron 4 MG/2 ML VIAL IVP PRN (22:47)
[2021-01-22] MEDS ORDERED: D5% in Water 1,000 ML IVC PRN (22:49)
[2021-01-22] MEDS ORDERED: Dextrose Gel 15 GM/37.5 ML TUBE PO PRN ×2 (22:49)
[2021-01-22] MEDS ORDERED: *HR* Dextrose 50 % in Water (Vial) 50 ML VIAL IVP PRN (22:49)
[2021-01-22 23:47] LABS: Calcium 8.2 mg/dL (8.6-10.3); Potassium 4.8 mEq/L (3.5-5.1)
[2021-01-23 05:50] LABS: Basophils # 0.1 K/mcL (0.0-0.2); Basophils % 0.7 %; Eosinophils # 0.6 K/mcL (0.0-0.6); Eosinophils % 8.6 %; Hematocrit 32.9 % (37.5-50.1); Hemoglobin 10.2 g/dL (12.9-16.9); Immature Granulocytes % 0.3 % (0-4); Lymphocytes # 2.2 K/mcL (0.6-4.6); Lymphocytes % 31.6 %; Mean Corpuscular Hemoglobin 30.2 pg (28.0-33.3); Mean Corpuscular Volume 97.3 fL (83.0-100.0); Mean Platelet Volume 9.3 fL (9.4-12.4); Monocytes # 0.6 K/mcL (0.0-1.3); Monocytes % 8.4 %; Neutrophils # 3.5 K/mcL (1.6-8.9); Platelet Count 187 K/mcL (140-400); Red Blood Count 3.38 M/mcL (4.19-5.50); Red Cell Distribution Width 13.2 % (11.5-14.5); Segmented Neutrophils % 50.4 %; White Blood Count 6.9 K/mcL (4.3-11.1)
[2021-01-23 06:02] LABS: INR 1.2; Prothrombin Time 13.5 Seconds (9.4-12.1)
[2021-01-23 06:14] LABS: Albumin 3.7 g/dL (3.5-5.7); Albumin/Globulin Ratio 1.2 (1.1-2.2); Bilirubin,Total 0.3 mg/dL (0.3-1.0); Calcium 8.2 mg/dL (8.6-10.3); Globulin 3.2 g/dL (2.4-3.5); Magnesium 1.9 mg/dL (1.6-2.6); Potassium 4.7 mEq/L (3.5-5.1); Total Protein 6.9 g/dL (6.4-8.9); Troponin I 0.03 ng/mL (< 0.04)
[2021-01-23] MEDS: Insulin LISPRO 300 UNITS/3 ML VIAL SUBQ SCH ×4 (07:37→20:14)
[2021-01-23] MEDS ORDERED: 0.9 % Sodium Chloride 250 ML IVC PRN (07:58)
[2021-01-23] MEDS ORDERED: *HR* Heparin 10,000 UNIT/10 ML VIAL IV PRN (07:58)
[2021-01-23] MEDS ORDERED: 0.9 % Sodium Chloride 1,000 ML PRIME SCH (08:00)
[2021-01-23 08:17] LABS: Hepatitis B Surface Antigen Nonreactive (Nonreactive)
[2021-01-23 10:26] LABS: Hepatitis B Surface Antibody 11.54 mIU/mL
[2021-01-23] MEDS: *HR* Heparin 5,000 UNIT/ML VIAL SQ SCH (17:53)
[2021-01-23] MEDS: hydrALAZINE 25 MG TABLET PO SCH ×2 (17:53→20:09)
[2021-01-23] MEDS ORDERED: Melatonin 3 MG TABLET PO SCH (21:00)
[2021-01-24 04:17] LABS: Calcium 8.8 mg/dL (8.6-10.3); Magnesium 1.9 mg/dL (1.6-2.6); Phosphorous 4.2 mg/dL (2.7-4.5); Potassium 4.3 mEq/L (3.5-5.1)
[2021-01-24] MEDS: *HR* Heparin 5,000 UNIT/ML VIAL SQ SCH ×2 (05:35→17:18)
[2021-01-24] MEDS ORDERED: NIFEDIPINE 90 MG PO SCH (09:00)
[2021-01-24] MEDS: NIFEdipine XL (24 HR) 30 MG TAB.ER.24 PO SCH (09:08)
[2021-01-24] MEDS: Insulin LISPRO 300 UNITS/3 ML VIAL SUBQ SCH ×4 (09:09→20:38)
[2021-01-24] MEDS: Furosemide 40 MG TABLET PO SCH (09:09)
[2021-01-24] MEDS: Loratadine 10 MG TABLET PO SCH (09:09)
[2021-01-24] MEDS: Ascorbic Acid 500 MG TABLET PO SCH (09:09)
[2021-01-24] MEDS: hydrALAZINE 25 MG TABLET PO SCH ×3 (09:09→20:37)
[2021-01-24] MEDS: Aspirin Enteric Coated 325 MG Tablet PO SCH (09:09)
[2021-01-25] MEDS: *HR* Heparin 5,000 UNIT/ML VIAL SQ SCH ×2 (05:51→17:10)
[2021-01-25 07:01] LABS: Potassium 4.9 mEq/L (3.5-5.1)
[2021-01-25] MEDS ORDERED: 0.9 % Sodium Chloride 250 ML IVC PRN (07:39)
[2021-01-25] MEDS ORDERED: *HR* Heparin 10,000 UNIT/10 ML VIAL IV PRN (07:39)
[2021-01-25] MEDS ORDERED: 0.9 % Sodium Chloride 1,000 ML PRIME SCH (07:45)
[2021-01-25] MEDS: Ascorbic Acid 500 MG TABLET PO SCH (07:56)
[2021-01-25] MEDS: Aspirin Enteric Coated 325 MG Tablet PO SCH (07:56)
[2021-01-25] MEDS: Loratadine 10 MG TABLET PO SCH (07:56)
[2021-01-25] MEDS: Insulin LISPRO 300 UNITS/3 ML VIAL SUBQ SCH ×4 (07:57→21:22)
[2021-01-25] MEDS: hydrALAZINE 25 MG TABLET PO SCH ×3 (07:57→21:21)
[2021-01-25 17:05] LABS: Adenovirus Not Detected (Not Detect); Bordetella Pertussis Not Detected (Not Detect); Chlamydophila pneumoniae Not Detected (Not Detect); Coronavirus 229E Not Detected (Not Detect); Coronavirus HKU1 Not Detected (Not Detect); Coronavirus NL63 Not Detected (Not Detect); Coronavirus OC43 Not Detected (Not Detect); Human Metapneumovirus Not Detected (Not Detect); Human Rhinovirus/Enterovirus Not Detected (Not Detect); Influenza A Subtype 2009 H1 Not Detected (Not Detect); Influenza B Not Detected (Not Detect); Mycoplasma pneumoniae Not Detected (Not Detect); Parainfluenza Virus 1 Not Detected (Not Detect); Parainfluenza Virus 2 Not Detected (Not Detect); Parainfluenza Virus 3 Not Detected (Not Detect); Parainfluenza Virus 4 Not Detected (Not Detect); Respiratory Syncytial Virus Not Detected (Not Detect); SARS-CoV-2 Not Detected (Not Detect)
[2021-01-26 03:03] LABS: Calcium 9.2 mg/dL (8.6-10.3); Phosphorous 4.6 mg/dL (2.7-4.5); Potassium 4.8 mEq/L (3.5-5.1)
[2021-01-26] MEDS: *HR* Heparin 5,000 UNIT/ML VIAL SQ SCH (06:45)
[2021-01-26 07:34] VITALS: BP 130/73
[2021-01-26] MEDS: Loratadine 10 MG TABLET PO SCH (08:03)
[2021-01-26] MEDS: Ascorbic Acid 500 MG TABLET PO SCH (08:03)
[2021-01-26] MEDS: Aspirin Enteric Coated 325 MG Tablet PO SCH (08:03)
[2021-01-26] MEDS: Insulin LISPRO 300 UNITS/3 ML VIAL SUBQ SCH (08:03)
[2021-01-26] MEDS: hydrALAZINE 25 MG TABLET PO SCH (08:03)
[2021-01-26] MEDS: NIFEdipine XL (24 HR) 30 MG TAB.ER.24 PO SCH (08:06)
[2021-01-26] MEDS: Furosemide 40 MG TABLET PO SCH (08:07)
== END 2021-01-26 11:11 | disposition other institution (70) | DRG 69 ==
LOC: 2ANU 17:07 → EMEROOARM 17:07 → SUATTDRO 20:01 → 2ANU 21:24
PROVIDERS: ADMIT Internal Medicine; ATTEND Internal Medicine

== ENCOUNTER 2021-12-05 19:21 | Inpatient (IN) ==
[2021-12-05 20:03] LABS: Basophils % 0.3 %; Eosinophils # 0.1 K/mcL (0.0-0.6); Eosinophils % 0.7 %; Hematocrit 30.7 % (37.5-50.1); Hemoglobin 9.6 g/dL (12.9-16.9); Immature Granulocytes % 0.5 % (0-4); Lymphocytes # 0.9 K/mcL (0.6-4.6); Lymphocytes % 6.4 %; Mean Corpuscular HGB Conc 31.3 g/dL (31.6-35.5); Mean Corpuscular Hemoglobin 31.1 pg (28.0-33.3); Mean Corpuscular Volume 99.4 fL (83.0-100.0); Mean Platelet Volume 10.7 fL (9.4-12.4); Monocytes # 1.3 K/mcL (0.0-1.3); Monocytes % 9.3 %; Neutrophils # 11.3 K/mcL (1.6-8.9); Platelet Count 257 K/mcL (140-400); Red Blood Count 3.09 M/mcL (4.19-5.50); Red Cell Distribution Width 12.7 % (11.5-14.5); Segmented Neutrophils % 82.8 %; White Blood Count 13.6 K/mcL (4.3-11.1)
[2021-12-05 20:33] LABS: Albumin 3.4 g/dL (3.5-5.7); Bilirubin,Indirect 0.3 mg/dL (0.0-1.0); Bilirubin,Total 0.3 mg/dL (0.3-1.0); Calcium 8.6 mg/dL (8.6-10.3); Globulin 3.5 g/dL (2.4-3.5); Potassium 4.5 mEq/L (3.5-5.1); Total Protein 6.9 g/dL (6.4-8.9); Troponin I 0.08 ng/mL (< 0.04)
[2021-12-05] MEDS ORDERED: Insulin Human Regular 10 UNIT in 0.9 % Sodium Chloride 10 ML IV ONE (20:40)
[2021-12-05] MEDS ORDERED: Cefepime HCl 1,000 MG in 0.9 % Sodium Chloride Mini Bag 100 ML IVPB STA (20:50)
[2021-12-05] MEDS ORDERED: Insulin Human Regular 5 UNIT in 0.9 % Sodium Chloride 10 ML IV ONE (21:14)
[2021-12-05] MEDS ORDERED: 0.9 % Sodium Chloride 1,000 ML IVC SCH (23:00)
[2021-12-05] MEDS ORDERED: Ondansetron ODT 4 MG TAB.RAPDIS SL PRN (23:02)
[2021-12-05] MEDS ORDERED: Melatonin 3 MG TABLET PO PRN (23:02)
[2021-12-05] MEDS ORDERED: Naloxone 0.4 MG/ML INJ IVP PRN (23:02)
[2021-12-05] MEDS ORDERED: *HR* Dextrose 50 % in Water (Syg) 50 ML SYRINGE IVP PRN (23:16)
[2021-12-05] MEDS ORDERED: Dextrose 4 GM Chewable Tablets PO PRN ×2 (23:16)
[2021-12-05] MEDS ORDERED: D5% in Water 1,000 ML IVC PRN (23:16)
[2021-12-06] MEDS ORDERED: Insulin LISPRO 300 UNITS/3 ML VIAL SUBQ SCH
[2021-12-06] MEDS ORDERED: 0.9 % Sodium Chloride 1,000 ML IVC SCH (00:18)
[2021-12-06 02:21] LABS: Basophils % 0.2 %; Eosinophils # 0.4 K/mcL (0.0-0.6); Eosinophils % 2.9 %; Hematocrit 28.9 % (37.5-50.1); Hemoglobin 9.2 g/dL (12.9-16.9); Immature Granulocytes % 0.7 % (0-4); Lymphocytes # 1.8 K/mcL (0.6-4.6); Lymphocytes % 13.2 %; Mean Corpuscular HGB Conc 31.8 g/dL (31.6-35.5); Mean Corpuscular Volume 97.3 fL (83.0-100.0); Mean Platelet Volume 10.5 fL (9.4-12.4); Monocytes # 1.2 K/mcL (0.0-1.3); Monocytes % 8.5 %; Neutrophils # 10.4 K/mcL (1.6-8.9); Platelet Count 240 K/mcL (140-400); Red Blood Count 2.97 M/mcL (4.19-5.50); Red Cell Distribution Width 12.6 % (11.5-14.5); Segmented Neutrophils % 74.5 %
[2021-12-06 02:46] LABS: Albumin/Globulin Ratio 0.9 (1.1-2.2); Bilirubin,Total 0.3 mg/dL (0.3-1.0); Calcium 8.4 mg/dL (8.6-10.3); Globulin 3.5 g/dL (2.4-3.5); Magnesium 1.7 mg/dL (1.6-2.6); Phosphorous 5.3 mg/dL (2.7-4.5); Total Protein 6.5 g/dL (6.4-8.9); Troponin I 0.08 ng/mL (< 0.04)
[2021-12-06] MEDS: Piperacillin/Tazobactam 3.375 GM in 0.9 % Sodium Chloride Mini Bag 100 ML IVPB SCH ×2 (06:59→17:16)
[2021-12-06] MEDS: Insulin LISPRO 300 UNITS/3 ML VIAL SUBQ SCH ×3 (07:59→18:24)
[2021-12-06] MEDS ORDERED: 0.9 % Sodium Chloride 250 ML IVC PRN (08:55)
[2021-12-06] MEDS ORDERED: 0.9 % Sodium Chloride 1,000 ML PRIME SCH (09:00)
[2021-12-07] MEDS: Insulin LISPRO 300 UNITS/3 ML VIAL SUBQ SCH ×6 (00:12→20:38)
[2021-12-07] MEDS: Piperacillin/Tazobactam 3.375 GM in 0.9 % Sodium Chloride Mini Bag 100 ML IVPB SCH ×2 (05:16→18:13)
[2021-12-07 07:15] LABS: Basophils % 0.3 %; Eosinophils # 0.5 K/mcL (0.0-0.6); Eosinophils % 3.8 %; Hematocrit 30.1 % (37.5-50.1); Hemoglobin 9.4 g/dL (12.9-16.9); Immature Granulocytes % 0.8 % (0-4); Lymphocytes # 1.8 K/mcL (0.6-4.6); Lymphocytes % 13.1 %; Mean Corpuscular HGB Conc 31.2 g/dL (31.6-35.5); Mean Corpuscular Hemoglobin 30.9 pg (28.0-33.3); Mean Platelet Volume 10.6 fL (9.4-12.4); Monocytes # 1.3 K/mcL (0.0-1.3); Monocytes % 9.4 %; Neutrophils # 9.8 K/mcL (1.6-8.9); Platelet Count 273 K/mcL (140-400); Red Blood Count 3.04 M/mcL (4.19-5.50); Red Cell Distribution Width 12.6 % (11.5-14.5); Segmented Neutrophils % 72.6 %; White Blood Count 13.6 K/mcL (4.3-11.1)
[2021-12-07 07:32] LABS: Calcium 8.6 mg/dL (8.6-10.3); Potassium 4.6 mEq/L (3.5-5.1)
[2021-12-07 07:36] LABS: % Iron Saturation 25 % (20-55); Iron 35 mcg/dL (65-175); Transferrin 102 mg/dL (203-362)
[2021-12-07 08:35] LABS: Ferritin > 1500 ng/mL (20-250)
[2021-12-08] MEDS: Piperacillin/Tazobactam 3.375 GM in 0.9 % Sodium Chloride Mini Bag 100 ML IVPB SCH ×2 (06:01→17:16)
[2021-12-08] MEDS: Insulin LISPRO 300 UNITS/3 ML VIAL SUBQ SCH ×4 (08:44→20:15)
[2021-12-08 09:46] LABS: Basophils # 0.1 K/mcL (0.0-0.2); Basophils % 0.4 %; Eosinophils # 0.3 K/mcL (0.0-0.6); Eosinophils % 2.2 %; Hematocrit 29.1 % (37.5-50.1); Hemoglobin 9.3 g/dL (12.9-16.9); Immature Granulocytes % 0.9 % (0-4); Lymphocytes # 1.3 K/mcL (0.6-4.6); Lymphocytes % 8.8 %; Mean Corpuscular Hemoglobin 31.4 pg (28.0-33.3); Mean Corpuscular Volume 98.3 fL (83.0-100.0); Mean Platelet Volume 10.3 fL (9.4-12.4); Monocytes % 7.1 %; Neutrophils # 11.5 K/mcL (1.6-8.9); Platelet Count 285 K/mcL (140-400); Red Blood Count 2.96 M/mcL (4.19-5.50); Red Cell Distribution Width 12.6 % (11.5-14.5); Segmented Neutrophils % 80.6 %; White Blood Count 14.3 K/mcL (4.3-11.1)
[2021-12-08 09:59] LABS: Calcium 8.6 mg/dL (8.6-10.3); Potassium 4.9 mEq/L (3.5-5.1)
[2021-12-09] MEDS: Piperacillin/Tazobactam 3.375 GM in 0.9 % Sodium Chloride Mini Bag 100 ML IVPB SCH ×2 (05:38→22:14)
[2021-12-09 06:53] LABS: Basophils # 0.1 K/mcL (0.0-0.2); Basophils % 0.4 %; Eosinophils # 0.7 K/mcL (0.0-0.6); Eosinophils % 4.9 %; Hematocrit 29.7 % (37.5-50.1); Hemoglobin 9.2 g/dL (12.9-16.9); Immature Granulocytes % 1.5 % (0-4); Lymphocytes # 1.9 K/mcL (0.6-4.6); Lymphocytes % 13.3 %; Mean Corpuscular Hemoglobin 30.5 pg (28.0-33.3); Mean Corpuscular Volume 98.3 fL (83.0-100.0); Mean Platelet Volume 10.3 fL (9.4-12.4); Monocytes # 0.9 K/mcL (0.0-1.3); Monocytes % 6.7 %; Neutrophils # 10.2 K/mcL (1.6-8.9); Platelet Count 314 K/mcL (140-400); Red Blood Count 3.02 M/mcL (4.19-5.50); Red Cell Distribution Width 12.6 % (11.5-14.5); Segmented Neutrophils % 73.2 %
[2021-12-09 07:16] LABS: Calcium 8.8 mg/dL (8.6-10.3); Potassium 5.2 mEq/L (3.5-5.1)
[2021-12-09] MEDS ORDERED: 0.9 % Sodium Chloride 250 ML IVC PRN ×2 (07:22→13:58)
[2021-12-09] MEDS ORDERED: Ethyl Chloride Spray Bottle (104 SPRAY/BOTTLE) TP PRN ×2 (07:22→13:58)
[2021-12-09] MEDS ORDERED: 0.9 % Sodium Chloride 1,000 ML PRIME SCH ×2 (07:30→13:58)
[2021-12-09] MEDS: Insulin LISPRO 300 UNITS/3 ML VIAL SUBQ SCH ×4 (09:00→21:03)
[2021-12-09] MEDS ORDERED: hydrALAZINE 25 MG TABLET PO SCH (09:00)
[2021-12-09] MEDS ORDERED: Clindamycin 900 MG/50 ML 900 MG/50 ML IV.SOLN IVPB ONE (11:02)
[2021-12-09] MEDS ORDERED: 0.9 % Sodium Chloride 1,000 ML IVC SCH (11:15)
[2021-12-09] MEDS ORDERED: *HR* Propofol 200 MG/20 ML VIAL IVP ONE (11:45)
[2021-12-09] MEDS ORDERED: Ondansetron 4 MG/2 ML VIAL ONE ×2 (11:45→11:46)
[2021-12-09] MEDS ORDERED: Lidocaine -MPF 2% 2 ML VIAL ONE (11:46)
[2021-12-09] MEDS ORDERED: *HR* FentaNYL (PF) 100 MCG/2 ML VIAL ONE (11:47)
[2021-12-09 11:59] LABS: INR 1.4; Prothrombin Time 15.3 Seconds (9.4-12.1)
[2021-12-09] MEDS ORDERED: Bupivacaine/Clonidine Syringe 20 ML, Syringe LUER-LOK 1 EACH TP ONE (12:00)
[2021-12-09] MEDS ORDERED: Lidocaine 1% 20 ML MDV ONE (12:02)
[2021-12-09] MEDS ORDERED: Melatonin 3 MG TABLET PO PRN (13:58)
[2021-12-09] MEDS ORDERED: Naloxone 0.4 MG/ML INJ IVP PRN (13:58)
[2021-12-09] MEDS ORDERED: Dextrose 4 GM Chewable Tablets PO PRN ×2 (13:58)
[2021-12-09] MEDS ORDERED: D5% in Water 1,000 ML IVC PRN (13:58)
[2021-12-09] MEDS ORDERED: *HR* Dextrose 50 % in Water (Syg) 50 ML SYRINGE IVP PRN (13:58)
[2021-12-09] MEDS ORDERED: Ondansetron ODT 4 MG TAB.RAPDIS SL PRN (13:58)
[2021-12-09] MEDS: 0.9 % Sodium Chloride 1,000 ML IVC SCH (14:25)
[2021-12-09] MEDS: hydrALAZINE 25 MG TABLET PO SCH ×2 (14:32→20:58)
[2021-12-09] MEDS ORDERED: Piperacillin/Tazobactam 3.375 GM in 0.9 % Sodium Chloride Mini Bag 100 ML IVPB SCH (18:00)
[2021-12-09] MEDS ORDERED: Insulin DETEMIR 100 UNIT/ML X5UNITS SUBQ SCH (21:00)
[2021-12-09] MEDS: Insulin DETEMIR 100 UNIT/ML X5UNITS SUBQ SCH (21:00)
[2021-12-10] MEDS: hydrALAZINE 25 MG TABLET PO SCH ×3 (08:34→21:15)
[2021-12-10] MEDS: Insulin LISPRO 300 UNITS/3 ML VIAL SUBQ SCH ×4 (08:34→21:15)
[2021-12-10] MEDS: Piperacillin/Tazobactam 3.375 GM in 0.9 % Sodium Chloride Mini Bag 100 ML IVPB SCH (08:35)
[2021-12-10] MEDS ORDERED: Furosemide 40 MG TABLET PO SCH (09:00)
[2021-12-10] MEDS ORDERED: NIFEdipine XL (24 HR) 30 MG TAB.ER.24 PO SCH (09:00)
[2021-12-10 09:08] LABS: Basophils # 0.1 K/mcL (0.0-0.2); Basophils % 0.4 %; Eosinophils # 0.6 K/mcL (0.0-0.6); Eosinophils % 4.6 %; Hematocrit 31.2 % (37.5-50.1); Hemoglobin 9.8 g/dL (12.9-16.9); Immature Granulocytes % 1.4 % (0-4); Lymphocytes # 1.5 K/mcL (0.6-4.6); Lymphocytes % 12.3 %; Mean Corpuscular HGB Conc 31.4 g/dL (31.6-35.5); Mean Corpuscular Volume 98.7 fL (83.0-100.0); Mean Platelet Volume 9.8 fL (9.4-12.4); Monocytes # 0.8 K/mcL (0.0-1.3); Monocytes % 6.6 %; Neutrophils # 9.4 K/mcL (1.6-8.9); Platelet Count 343 K/mcL (140-400); Red Blood Count 3.16 M/mcL (4.19-5.50); Red Cell Distribution Width 12.5 % (11.5-14.5); Segmented Neutrophils % 74.7 %; White Blood Count 12.5 K/mcL (4.3-11.1)
[2021-12-10 09:20] LABS: Calcium 8.7 mg/dL (8.6-10.3); Potassium 4.5 mEq/L (3.5-5.1)
[2021-12-10] MEDS: NIFEdipine XL (24 HR) 30 MG TAB.ER.24 PO SCH (11:11)
[2021-12-10] MEDS: Furosemide 40 MG TABLET PO SCH (11:11)
[2021-12-10] MEDS: 0.9 % Sodium Chloride 1,000 ML IVC SCH (15:35)
[2021-12-10] MEDS: metroNIDAZOLE 500 MG TABLET PO SCH (21:15)
[2021-12-10] MEDS: Insulin DETEMIR 100 UNIT/ML X5UNITS SUBQ SCH (21:15)
[2021-12-11 02:06] LABS: Basophils # 0.1 K/mcL (0.0-0.2); Basophils % 0.4 %; Eosinophils # 0.5 K/mcL (0.0-0.6); Eosinophils % 4.6 %; Hematocrit 27.9 % (37.5-50.1); Hemoglobin 8.7 g/dL (12.9-16.9); Immature Granulocytes % 1.2 % (0-4); Lymphocytes # 1.5 K/mcL (0.6-4.6); Lymphocytes % 13.5 %; Mean Corpuscular HGB Conc 31.2 g/dL (31.6-35.5); Mean Corpuscular Hemoglobin 30.5 pg (28.0-33.3); Mean Corpuscular Volume 97.9 fL (83.0-100.0); Mean Platelet Volume 9.9 fL (9.4-12.4); Monocytes # 0.8 K/mcL (0.0-1.3); Monocytes % 7.2 %; Neutrophils # 8.3 K/mcL (1.6-8.9); Platelet Count 338 K/mcL (140-400); Red Blood Count 2.85 M/mcL (4.19-5.50); Red Cell Distribution Width 12.4 % (11.5-14.5); Segmented Neutrophils % 73.1 %; White Blood Count 11.3 K/mcL (4.3-11.1)
[2021-12-11 02:27] LABS: Calcium 8.2 mg/dL (8.6-10.3); Potassium 4.3 mEq/L (3.5-5.1)
[2021-12-11] MEDS ORDERED: 0.9 % Sodium Chloride 250 ML IVC PRN (07:34)
[2021-12-11] MEDS ORDERED: 0.9 % Sodium Chloride 2,000 ML PRIME SCH (07:45)
[2021-12-11] MEDS: Insulin LISPRO 300 UNITS/3 ML VIAL SUBQ SCH ×4 (07:56→20:08)
[2021-12-11] MEDS: metroNIDAZOLE 500 MG TABLET PO SCH ×3 (07:56→20:06)
[2021-12-11] MEDS: hydrALAZINE 25 MG TABLET PO SCH ×3 (07:56→20:07)
[2021-12-11] MEDS ORDERED: Cefepime HCl 2,000 MG in 0.9 % Sodium Chloride Mini Bag 100 ML IVPB SCH (16:00)
[2021-12-11] MEDS: Lactobacillus 1 EACH CAP.SPRINK PO SCH (20:07)
[2021-12-11] MEDS: Insulin DETEMIR 100 UNIT/ML X5UNITS SUBQ SCH (20:07)
[2021-12-12 04:38] LABS: Basophils # 0.1 K/mcL (0.0-0.2); Basophils % 0.4 %; Eosinophils # 0.4 K/mcL (0.0-0.6); Eosinophils % 3.2 %; Hematocrit 30.9 % (37.5-50.1); Hemoglobin 9.8 g/dL (12.9-16.9); Immature Granulocytes % 1.2 % (0-4); Lymphocytes # 1.5 K/mcL (0.6-4.6); Mean Corpuscular HGB Conc 31.7 g/dL (31.6-35.5); Mean Corpuscular Hemoglobin 31.2 pg (28.0-33.3); Mean Corpuscular Volume 98.4 fL (83.0-100.0); Mean Platelet Volume 9.7 fL (9.4-12.4); Monocytes # 0.7 K/mcL (0.0-1.3); Monocytes % 5.7 %; Neutrophils # 9.4 K/mcL (1.6-8.9); Platelet Count 315 K/mcL (140-400); Red Blood Count 3.14 M/mcL (4.19-5.50); Red Cell Distribution Width 12.7 % (11.5-14.5); Segmented Neutrophils % 77.5 %; White Blood Count 12.2 K/mcL (4.3-11.1)
[2021-12-12 05:01] LABS: Calcium 8.6 mg/dL (8.6-10.3); Potassium 4.3 mEq/L (3.5-5.1)
[2021-12-12] MEDS: hydrALAZINE 25 MG TABLET PO SCH ×3 (09:04→21:33)
[2021-12-12] MEDS: Lactobacillus 1 EACH CAP.SPRINK PO SCH ×2 (09:04→21:31)
[2021-12-12] MEDS: metroNIDAZOLE 500 MG TABLET PO SCH ×3 (09:04→21:32)
[2021-12-12] MEDS: Furosemide 40 MG TABLET PO SCH (09:04)
[2021-12-12] MEDS: NIFEdipine XL (24 HR) 30 MG TAB.ER.24 PO SCH (09:04)
[2021-12-12] MEDS: Insulin LISPRO 300 UNITS/3 ML VIAL SUBQ SCH ×4 (09:05→21:32)
[2021-12-12] MEDS: Insulin DETEMIR 100 UNIT/ML X5UNITS SUBQ SCH (21:33)
[2021-12-13 01:32] LABS: White Blood Count 14.2 K/mcL (4.3-11.1)
[2021-12-13 01:33] LABS: Basophils # 0.1 K/mcL (0.0-0.2); Basophils % 0.4 %; Eosinophils # 0.4 K/mcL (0.0-0.6); Eosinophils % 2.9 %; Hematocrit 29.8 % (37.5-50.1); Hemoglobin 9.3 g/dL (12.9-16.9); Immature Granulocytes % 1.2 % (0-4); Lymphocytes # 1.4 K/mcL (0.6-4.6); Lymphocytes % 10.1 %; Mean Corpuscular HGB Conc 31.2 g/dL (31.6-35.5); Mean Corpuscular Hemoglobin 30.6 pg (28.0-33.3); Mean Platelet Volume 9.9 fL (9.4-12.4); Monocytes # 0.9 K/mcL (0.0-1.3); Neutrophils # 11.3 K/mcL (1.6-8.9); Platelet Count 349 K/mcL (140-400); Red Blood Count 3.04 M/mcL (4.19-5.50); Red Cell Distribution Width 12.6 % (11.5-14.5); Segmented Neutrophils % 79.4 %
[2021-12-13] MEDS ORDERED: 0.9 % Sodium Chloride 250 ML IVC PRN (06:03)
[2021-12-13] MEDS: metroNIDAZOLE 500 MG TABLET PO SCH ×3 (08:12→20:44)
[2021-12-13] MEDS: Lactobacillus 1 EACH CAP.SPRINK PO SCH ×2 (08:12→20:44)
[2021-12-13] MEDS: hydrALAZINE 25 MG TABLET PO SCH ×3 (08:12→20:44)
[2021-12-13] MEDS: Insulin LISPRO 300 UNITS/3 ML VIAL SUBQ SCH ×4 (08:13→20:45)
[2021-12-13 10:04] LABS: Calcium 8.8 mg/dL (8.6-10.3); Potassium 4.3 mEq/L (3.5-5.1)
[2021-12-13] MEDS: Insulin DETEMIR 100 UNIT/ML X5UNITS SUBQ SCH (20:44)
[2021-12-14] MEDS: metroNIDAZOLE 500 MG TABLET PO SCH ×2 (08:42→16:28)
[2021-12-14] MEDS: Insulin LISPRO 300 UNITS/3 ML VIAL SUBQ SCH ×3 (08:42→16:29)
[2021-12-14] MEDS: hydrALAZINE 25 MG TABLET PO SCH ×2 (08:42→16:28)
[2021-12-14] MEDS: Lactobacillus 1 EACH CAP.SPRINK PO SCH (08:42)
[2021-12-14] MEDS: NIFEdipine XL (24 HR) 30 MG TAB.ER.24 PO SCH (10:17)
[2021-12-14] MEDS: Furosemide 40 MG TABLET PO SCH (10:17)
[2021-12-14 11:44] VITALS: O2SAT 93
[2021-12-14 16:07] VITALS: BP 136/75; PULSE 70; TEMP 98.6
== END 2021-12-14 19:40 | DRG 853 ==
LOC: EMEROOARM 19:21 → 2ANU 19:21
PROVIDERS: ADMIT Student in an Organized Health Care Education/Training Program; ATTEND Student in an Organized Health Care Education/Training Program

== ENCOUNTER 2022-04-01 15:26 | Inpatient (IN) ==
[2022-04-01 16:41] LABS: Basophils % 0.3 %; Eosinophils # 0.3 K/mcL (0.0-0.6); Eosinophils % 3.7 %; Hematocrit 29.6 % (37.5-50.1); Hemoglobin 9.8 g/dL (12.9-16.9); Immature Granulocytes % 0.3 % (0-4); Lymphocytes # 1.4 K/mcL (0.6-4.6); Lymphocytes % 21.2 %; Mean Corpuscular HGB Conc 33.1 g/dL (31.6-35.5); Mean Corpuscular Hemoglobin 31.2 pg (28.0-33.3); Mean Corpuscular Volume 94.3 fL (83.0-100.0); Mean Platelet Volume 10.3 fL (9.4-12.4); Monocytes # 0.5 K/mcL (0.0-1.3); Neutrophils # 4.6 K/mcL (1.6-8.9); Platelet Count 185 K/mcL (140-400); Red Blood Count 3.14 M/mcL (4.19-5.50); Red Cell Distribution Width 12.4 % (11.5-14.5); Segmented Neutrophils % 67.5 %; White Blood Count 6.8 K/mcL (4.3-11.1)
[2022-04-01 17:01] LABS: VBG HCO3 26 mEq/L (21-27); VBG PCO2 35 mmHg (41-51); VBG PH 7.47 pH Units (7.32-7.42); VBG PO2 142 mmHg (25-50)
[2022-04-01 17:01] LABS: Calcium 8.8 mg/dL (8.6-10.3); Magnesium 1.9 mg/dL (1.6-2.6); Potassium 3.8 mEq/L (3.5-5.1)
[2022-04-01 17:03] LABS: Troponin I 0.17 ng/mL (< 0.04)
[2022-04-01 17:16] LABS: Thyroid Stimulating Hormone 2.477 mcIU/mL (0.340-5.600)
[2022-04-01] MEDS ORDERED: Iopamidol - 370 500 ML MLS IVP ONE (17:22)
[2022-04-01] MEDS ORDERED: Nitroglycerin 0.4 MG TAB.SUBL SL PRN (18:14)
[2022-04-01 18:53] LABS: Albumin 3.6 g/dL (3.5-5.7); Bilirubin,Direct 0.1 mg/dL (0.0-0.2); Bilirubin,Indirect 0.3 mg/dL (0.0-1.0); Bilirubin,Total 0.4 mg/dL (0.3-1.0); Globulin 3.5 g/dL (2.4-3.5); Total Protein 7.1 g/dL (6.4-8.9)
[2022-04-01 18:56] LABS: Troponin I 0.17 ng/mL (< 0.04)
[2022-04-01] MEDS ORDERED: Aspirin 325 MG TABLET PO ONE (18:57)
[2022-04-01] MEDS ORDERED: *HR* Heparin 5,000 UNIT/ML VIAL IVP PRN (18:58)
[2022-04-01] MEDS ORDERED: *HR* Heparin 5,000 UNIT/ML VIAL IVP ONE (18:58)
[2022-04-01] MEDS ORDERED: Heparin 25,000UNIT/250ML 1/2NS 25,000 UNIT/250 ML IV.SOLN IVC SCH (19:00)
[2022-04-01 20:32] LABS: Hematocrit 29.1 % (37.5-50.1); Hemoglobin 9.5 g/dL (12.9-16.9); Mean Corpuscular HGB Conc 32.6 g/dL (31.6-35.5); Mean Corpuscular Hemoglobin 30.8 pg (28.0-33.3); Mean Corpuscular Volume 94.5 fL (83.0-100.0); Mean Platelet Volume 10.2 fL (9.4-12.4); Platelet Count 194 K/mcL (140-400); Red Blood Count 3.08 M/mcL (4.19-5.50); Red Cell Distribution Width 12.4 % (11.5-14.5); White Blood Count 7.1 K/mcL (4.3-11.1)
[2022-04-01 20:40] LABS: Heparin anti-factor XA UFH < 0.04 IU/mL (0.30-0.70); INR 1.1; Prothrombin Time 12.8 Seconds (9.4-12.1)
[2022-04-01] MEDS ORDERED: Naloxone 0.4 MG/ML INJ IVP PRN (20:54)
[2022-04-01] MEDS ORDERED: Melatonin 3 MG TABLET PO PRN (20:54)
[2022-04-01] MEDS ORDERED: Ondansetron 4 MG/2 ML VIAL IVP PRN (21:00)
[2022-04-02] MEDS ORDERED: D5% in Water 1,000 ML IVC PRN (02:38)
[2022-04-02] MEDS ORDERED: *HR* Dextrose 50 % in Water (Syg) 50 ML SYRINGE IVP PRN (02:38)
[2022-04-02] MEDS ORDERED: Dextrose Gel 15 GM/37.5 ML TUBE PO PRN ×2 (02:38)
[2022-04-02] MEDS: NIFEdipine XL (24 HR) 30 MG TAB.ER.24 PO SCH ×2 (02:57→09:44)
[2022-04-02] MEDS: hydrALAZINE 25 MG TABLET PO SCH ×3 (03:22→19:55)
[2022-04-02 06:00] LABS: Basophils % 0.5 %; Eosinophils # 0.3 K/mcL (0.0-0.6); Eosinophils % 4.3 %; Hematocrit 29.1 % (37.5-50.1); Hemoglobin 9.7 g/dL (12.9-16.9); Immature Granulocytes % 0.3 % (0-4); Lymphocytes # 1.3 K/mcL (0.6-4.6); Lymphocytes % 20.5 %; Mean Corpuscular HGB Conc 33.3 g/dL (31.6-35.5); Mean Corpuscular Hemoglobin 31.4 pg (28.0-33.3); Mean Corpuscular Volume 94.2 fL (83.0-100.0); Mean Platelet Volume 10.2 fL (9.4-12.4); Monocytes # 0.6 K/mcL (0.0-1.3); Monocytes % 8.6 %; Neutrophils # 4.3 K/mcL (1.6-8.9); Platelet Count 195 K/mcL (140-400); Red Blood Count 3.09 M/mcL (4.19-5.50); Red Cell Distribution Width 12.6 % (11.5-14.5); Segmented Neutrophils % 65.8 %; White Blood Count 6.5 K/mcL (4.3-11.1)
[2022-04-02 06:05] LABS: INR 1.2; Prothrombin Time 13.3 Seconds (9.4-12.1)
[2022-04-02 06:08] LABS: Activated Partial Thrombo Time 38.5 Seconds (26.0-36.0)
[2022-04-02 06:22] LABS: Heparin anti-factor XA UFH 0.13 IU/mL (0.30-0.70)
[2022-04-02 06:29] LABS: Calcium 8.5 mg/dL (8.6-10.3); Magnesium 1.9 mg/dL (1.6-2.6); Phosphorous 4.6 mg/dL (2.7-4.5); Potassium 4.4 mEq/L (3.5-5.1); Troponin I 0.12 ng/mL (< 0.04)
[2022-04-02] MEDS: *HR* Heparin 5,000 UNIT/ML VIAL IVP PRN ×2 (06:43→13:17)
[2022-04-02] MEDS ORDERED: Magnesium Sulfate 1 GM/102 ML PIGGYBACK IVPB ONE (08:54)
[2022-04-02] MEDS: Insulin LISPRO 300 UNITS/3 ML VIAL SUBQ SCH ×4 (09:44→21:23)
[2022-04-02] MEDS: Insulin DETEMIR 100 UNIT/ML X5UNITS SUBQ SCH ×2 (09:44→20:56)
[2022-04-02 11:52] LABS: % Iron Saturation 44 % (20-55); Iron 77 mcg/dL (65-175); Transferrin 124 mg/dL (203-362)
[2022-04-02 12:11] LABS: Ferritin 1443 ng/mL (20-250)
[2022-04-02 14:16] LABS: Hepatitis B Surface Antibody 81.48 mIU/mL
[2022-04-02 14:27] LABS: Hepatitis B Surface Antigen Nonreactive (Nonreactive)
[2022-04-02] MEDS ORDERED: hydrALAZINE 25 MG TABLET PO SCH (23:00)
[2022-04-03] MEDS: hydrALAZINE 25 MG TABLET PO SCH ×3 (04:14→22:06)
[2022-04-03] MEDS: NIFEdipine XL (24 HR) 30 MG TAB.ER.24 PO SCH (09:41)
[2022-04-03] MEDS: Insulin LISPRO 300 UNITS/3 ML VIAL SUBQ SCH ×4 (09:43→22:09)
[2022-04-03] MEDS: Insulin DETEMIR 100 UNIT/ML X5UNITS SUBQ SCH ×2 (09:43→22:06)
[2022-04-03] MEDS ORDERED: Ethyl Chloride Spray Bottle (104 SPRAY/BOTTLE) TP PRN (12:04)
[2022-04-03] MEDS ORDERED: 0.9 % Sodium Chloride 250 ML IVC PRN (12:04)
[2022-04-03] MEDS ORDERED: 0.9 % Sodium Chloride 2,000 ML PRIME SCH (12:15)
[2022-04-03] MEDS: Acetaminophen 325 MG TABLET PO PRN (19:52)
[2022-04-04] MEDS: hydrALAZINE 25 MG TABLET PO SCH ×3 (03:15→20:01)
[2022-04-04 03:24] LABS: Hematocrit 31.6 % (37.5-50.1); Hemoglobin 10.4 g/dL (12.9-16.9); Mean Corpuscular HGB Conc 32.9 g/dL (31.6-35.5); Mean Corpuscular Hemoglobin 31.2 pg (28.0-33.3); Mean Corpuscular Volume 94.9 fL (83.0-100.0); Mean Platelet Volume 9.7 fL (9.4-12.4); Platelet Count 225 K/mcL (140-400); Red Blood Count 3.33 M/mcL (4.19-5.50); Red Cell Distribution Width 12.4 % (11.5-14.5); White Blood Count 7.8 K/mcL (4.3-11.1)
[2022-04-04 03:43] LABS: Calcium 8.7 mg/dL (8.6-10.3)
[2022-04-04] MEDS ORDERED: 0.9 % Sodium Chloride 250 ML IVC PRN (08:56)
[2022-04-04] MEDS: Insulin LISPRO 300 UNITS/3 ML VIAL SUBQ SCH ×4 (09:03→21:35)
[2022-04-04] MEDS: NIFEdipine XL (24 HR) 30 MG TAB.ER.24 PO SCH (09:10)
[2022-04-04] MEDS: Insulin DETEMIR 100 UNIT/ML X5UNITS SUBQ SCH ×2 (09:10→21:35)
[2022-04-05] MEDS: hydrALAZINE 25 MG TABLET PO SCH ×3 (03:08→20:50)
[2022-04-05 03:27] LABS: Hematocrit 33.2 % (37.5-50.1); Hemoglobin 10.6 g/dL (12.9-16.9); Mean Corpuscular HGB Conc 31.9 g/dL (31.6-35.5); Mean Corpuscular Hemoglobin 30.6 pg (28.0-33.3); Mean Platelet Volume 9.5 fL (9.4-12.4); Platelet Count 233 K/mcL (140-400); Red Blood Count 3.46 M/mcL (4.19-5.50); Red Cell Distribution Width 12.4 % (11.5-14.5); White Blood Count 6.8 K/mcL (4.3-11.1)
[2022-04-05 03:47] LABS: Calcium 8.9 mg/dL (8.6-10.3); Potassium 4.1 mEq/L (3.5-5.1)
[2022-04-05] MEDS: Insulin LISPRO 300 UNITS/3 ML VIAL SUBQ SCH ×4 (08:21→20:51)
[2022-04-05] MEDS: Insulin DETEMIR 100 UNIT/ML X5UNITS SUBQ SCH ×2 (08:21→20:48)
[2022-04-05] MEDS: Aspirin Enteric Coated 325 MG Tablet PO SCH (08:21)
[2022-04-05] MEDS: NIFEdipine XL (24 HR) 30 MG TAB.ER.24 PO SCH (08:21)
[2022-04-05] MEDS ORDERED: Fluticasone Propionate Nasal 50 MCG/SPRAY BOTTLE NS PRN (13:53)
[2022-04-05] MEDS: Furosemide 40 MG TABLET PO SCH (14:50)
[2022-04-05] MEDS: VIT B6 PO SCH (20:51)
[2022-04-05] MEDS: CYANOCOBALAMIN PO SCH (20:51)
[2022-04-05] MEDS: FOLIC AC PO SCH (20:51)
[2022-04-06] MEDS: hydrALAZINE 25 MG TABLET PO SCH ×3 (04:11→19:25)
[2022-04-06] MEDS: Insulin LISPRO 300 UNITS/3 ML VIAL SUBQ SCH ×3 (07:45→18:12)
[2022-04-06] MEDS: Renal Vitamin 1 CAP CAPSULE PO SCH (08:58)
[2022-04-06] MEDS: Ascorbic Acid 500 MG TABLET PO SCH (08:58)
[2022-04-06] MEDS: NIFEdipine XL (24 HR) 30 MG TAB.ER.24 PO SCH (08:58)
[2022-04-06] MEDS: CYANOCOBALAMIN PO SCH (08:59)
[2022-04-06] MEDS: Aspirin Enteric Coated 325 MG Tablet PO SCH (08:59)
[2022-04-06] MEDS: Loratadine 10 MG TABLET PO SCH (08:59)
[2022-04-06] MEDS: VIT B6 PO SCH (08:59)
[2022-04-06] MEDS: FOLIC AC PO SCH (08:59)
[2022-04-06] MEDS: Insulin DETEMIR 100 UNIT/ML X5UNITS SUBQ SCH (09:03)
[2022-04-06] MEDS ORDERED: Insulin LISPRO 300 UNITS/3 ML VIAL SUBQ SCH (12:21)
[2022-04-06] MEDS: Furosemide 40 MG TABLET PO SCH (13:54)
[2022-04-06] MEDS: Vitamin B Complex/Vit C/Vit E 1 EACH TABLET PO SCH (20:49)
[2022-04-06] MEDS ORDERED: Insulin DETEMIR 100 UNIT/ML X5UNITS SUBQ SCH (21:00)
[2022-04-07] MEDS: hydrALAZINE 25 MG TABLET PO SCH ×2 (03:56→11:30)
[2022-04-07] MEDS: Acetaminophen 325 MG TABLET PO PRN (04:53)
[2022-04-07 06:45] VITALS: PULSE 71
[2022-04-07] MEDS ORDERED: 0.9 % Sodium Chloride 250 ML IVC PRN (06:58)
[2022-04-07] MEDS ORDERED: 0.9 % Sodium Chloride 2,000 ML PRIME SCH (07:00)
[2022-04-07] MEDS: Vitamin B Complex/Vit C/Vit E 1 EACH TABLET PO SCH (08:46)
[2022-04-07] MEDS: Loratadine 10 MG TABLET PO SCH (08:46)
[2022-04-07] MEDS: Renal Vitamin 1 CAP CAPSULE PO SCH (08:46)
[2022-04-07] MEDS: Insulin LISPRO 300 UNITS/3 ML VIAL SUBQ SCH ×2 (08:47→11:30)
[2022-04-07] MEDS: Aspirin Enteric Coated 325 MG Tablet PO SCH (08:47)
[2022-04-07] MEDS: Ascorbic Acid 500 MG TABLET PO SCH (08:47)
[2022-04-07] MEDS: NIFEdipine XL (24 HR) 30 MG TAB.ER.24 PO SCH (08:47)
[2022-04-07] MEDS ORDERED: Insulin DETEMIR 100 UNIT/ML X5UNITS SUBQ SCH (09:00)
[2022-04-07 11:25] VITALS: O2SAT 94
[2022-04-07 13:45] LABS: Influenza A PCR Negative (Negative); Influenza B PCR Negative (Negative); Resp. Syncytial Virus PCR Negative (Negative)
[2022-04-07 14:08] LABS: SARS-CoV-2 by PCR (In House) Positive (Negative)
[2022-04-07 14:30] VITALS: BP 144/79; TEMP 98
== END 2022-04-07 16:05 | DRG 280 ==
LOC: 3NENU 15:26 → EMEROOARM 15:26 → SUATTDRO 19:37 → 3NENU 21:20
PROVIDERS: ADMIT Internal Medicine; ATTEND Internal Medicine